=== PATIENT | male | born 1995 | race African-American/Black ===

== ENCOUNTER 2017-02-03 21:36 | Emergency (ER) | payer OTHER ==
--- NOTE | 2017-02-03 22:08 | ER Document Report ---
ED General - General Chief Complaint: Probable Seizure Stated Complaint: POSSIBLE SEIZURE Time Seen by Provider: 02/03/17 21:45 Mode of Arrival: Medic Information source: Parent Notes: 21-year-old male history of BOWLING BALL WEIGHER AND PACKER shunt presents with complaint of seizure-like activity. Patient has a history of seizure disorder is on Keppra , mother notes he is taking the meds appropriately. Had 3 seizures each lasting a few seconds, nother notes this was normal for him, denies any concerning episode. pt otherwise normal all day until he seized TRAVEL OUTSIDE OF THE [place] IN LAST 30 DAYS: No - HPI Onset: Just prior to arrival Onset/Duration: Sudden Quality of pain: No pain Severity: Mild Pain Level: Denies Associated symptoms: Other Exacerbated by: Denies Relieved by: Denies Similar symptoms previously: Yes Recently seen / treated by doctor: Yes - Related Data Allergies/Adverse Reactions: No Known Allergies Allergy (Verified 02/03/17 22:50) Past Medical History - Social History Smoking Status: Never Smoker Cigarette use (# per day): No Chew tobacco use (# tins/day): No Smoking Education Provided: No Family History: Reviewed & Not Pertinent Neurological Medical History: Reports: Hx Seizures Past Surgical History: Reports: Hx Genitourinary Surgery - Abcess behind bladder 2006, Hx Neurologic Surgery - BOWLING BALL WEIGHER AND PACKER shunt, revised in 2006 - Immunizations Immunizations up to date: Yes Hx Diphtheria, Pertussis, Tetanus Vaccination: Yes Review of Systems - Review of Systems Notes: REVIEW OF SYSTEMS: CONSTITUTIONAL : Denies fever, chills, or sweats. Denies recent illness. EENT: Denies eye, ear, throat, or mouth pain or symptoms. Denies nasal or sinus congestion or discharge. Denies throat, tongue, or mouth swelling or difficulty swallowing. CARDIOVASCULAR: Denies chest pain. Denies palpitations or racing or irregular heart beat. Denies ankle edema. RESPIRATORY: Denies cough, cold, or chest congestion. Denies shortness of breath, difficulty breathing, or wheezing. GASTROINTESTINAL: Denies abdominal pain or distention. Denies nausea, vomiting , or diarrhea. Denies blood in vomitus, stools, or per rectum. Denies black, tarry stools. Denies constipation. GENITOURINARY: Denies difficulty urinating, painful urination, burning, frequency, blood in urine, or discharge. MUSCULOSKELETAL: Denies back or neck pain or stiffness. Denies joint pain or swelling. SKIN: Denies rash, lesions or sores. HEMATOLOGIC : Denies easy bruising or bleeding. LYMPHATIC: Denies swollen, enlarged glands. NEUROLOGICAL: admits to seizure per mother PSYCHIATRIC: Denies anxiety or stress. Denies depression, suicidal ideation, or homicidal ideation. ALL OTHER SYSTEMS REVIEWED AND NEGATIVE. Dictation was performed using [employer] voice recognition software PHYSICAL EXAMINATION: GENERAL: Well-appearing, well-nourished and in no acute distress. resting comfirtably HEAD: Atraumatic, normocephalic. EYES: Pupils equal round and reactive to light, extraocular movements intact, sclera anicteric, conjunctiva are normal. ENT: Nares patent, oropharynx clear without exudates. Moist mucous membranes. NECK: Normal range of motion, supple without lymphadenopathy LUNGS: Breath sounds clear to auscultation bilaterally and equal. No wheezes rales or rhonchi. HEART: Regular rate and rhythm without murmurs ABDOMEN: Soft, nontender, nondistended abdomen. No guarding, no rebound. No masses appreciated. Musculoskeletal: Normal range of motion, no pitting or edema. No cyanosis. NEUROLOGICAL: pt is posticatal, mother notes this is normal for him to sleep for up to 24 hours PSYCH: Normal mood, normal affect. SKIN: Warm, Dry, normal turgor, no rashes or lesions noted. Physical Exam - Vital signs Vitals: Temp Pulse Resp BP Pulse Ox 97.8 F 92 14 110/59 L 100 02/03/17 21:50 02/03/17 21:50 02/03/17 21:50 02/03/17 21:50 02/03/17 21:50 Course - Re-evaluation Re-evalutation: 02/03/17 22:57 CT head shunt series noted no significant abnormality. Patient otherwise looks well is in no distress. I will discharge home after a loading dose of Keppra is given Family is very happy with this plan, note this is normal for him and will follow up with primary care physician and neurologist After performing a Medical Screening Examination, I estimate there is LOW risk for ACUTE CORONARY SYNDROME, RESPIRATORY FAILURE, SEPSIS OR MENINGITIS, thus I consider the discharge disposition reasonable. I have reevaluated this patient multiple times and no significant life threatening changes are noted. The patient's mother and I have discussed the diagnosis and risks, and we agree with discharging home with close follow-up. We also discussed returning to the Emergency Department immediately if new or worsening symptoms occur. We have discussed the symptoms which are most concerning (e.g., changing or worsening pain, trouble swallowing or breathing, neck stiffness, fever) that necessitate immediate return. - Vital Signs Vital signs: Temp Pulse Resp BP Pulse Ox 97.8 F 92 20 118/79 100 02/03/17 21:50 02/03/17 21:50 02/03/17 22:26 02/03/17 22:26 02/03/17 22:26 - Diagnostic Test Radiology reviewed: Image reviewed - no Significant abnormality, was given to mother, Reports reviewed Discharge - Discharge Clinical Impression: Seizure Condition: Stable Disposition: HOME, SELF-CARE Instructions: Seizure, Known Epileptic ([facility]) Additional Instructions: Follow up with your physician tomorrow for further care or return to the ED IMMEDIATELY if symptoms worsen or new concerns occur. If you cannot afford to follow up with your primary care physician a list of low cost clinics have been provided at the end of your discharge papers as well.
--- NOTE | 2017-02-03 22:28 | RADIOLOGY REPORT (SQ) ---
EXAM DESCRIPTION: CT HEAD WITHOUT COMPLETED DATE/TIME: 02/03/2017 10:13 pm REASON FOR STUDY: seizure, vp informatics shunt COMPARISON: 01/16/2016 TECHNIQUE: Axial images acquired through the brain without intravenous contrast. Images reviewed wi th bone, brain and subdural windows. Images stored on PACS. All CT scanners at this facility use dose modulation, iterative reconstruction, and/or weight based d osing when appropriate to reduce radiation dose to as low as reasonably achievable (ALARA). [facility]: Dose Right [facility]: CareDose [facility]: Dose Right [facility]: Teradose 4D [facility]: SleepOut RADIATION DOSE: 64.61 mGy. LIMITATIONS: None. FINDINGS: VENTRICLES: Non dilated ventricles. Right-sided RUBY DEVELOPER shunt catheter tip overlies the region of the 3rd ventricle, unchanged. CEREBRUM: No hemorrhage. No midline shift. Stable rausch/white matter differentiation. No evidence f or acute infarction. CEREBELLUM: No hemorrhage. No evidence for acute infarction. EXTRAAXIAL SPACES: No fluid collections. ORBITS AND GLOBE: No intra- or extraconal masses. Normal contour of globe without masses. CALVARIUM: No fracture. PARANASAL SINUSES: No fluid or mucosal thickening. SOFT TISSUES: No mass or hematoma. OTHER: No other significant finding. IMPRESSION: Non dilated ventricles. Right-sided RUBY DEVELOPER shunt catheter tip overlies the region of the 3 rd ventricle, unchanged.No hemorrhage. No midline shift. TECHNICAL DOCUMENTATION: JOB ID: [id number] Quality ID # [id number]: Final reports with documentation of one or more dose reduction techniques (e.g., Au tomated exposure control, adjustment of the mA and/or kV according to patient size, use of iterative reconstruction technique) 2010 [employer]- All Rights Reserved
--- NOTE | 2017-02-03 22:39 | RADIOLOGY REPORT (SQ) ---
EXAM DESCRIPTION: SHUNTOGRAM SERIES COMPLETED DATE/TIME: 02/03/2017 10:13 pm REASON FOR STUDY: seizure COMPARISON: None. TECHNIQUE: 4 frontal images of the head neck chest abdomen and pelvis LIMITATIONS: None. FINDINGS: Right sided intracranial intraventricular shunt tubing is present, the distal tip is visua lized in the upper aspect of the chest, the catheter terminates in the region of the right paraspinal soft tissues at the level of the raymundo. The tubing appears intact. No abdominal catheter identifi ed. Lungs appear clear. Cardiac silhouette is normal. Bowel gas pattern is nonobstructive. Modera te stool burden. IMPRESSION: Right sided intracranial intraventricular shunt tubing is present, the distal tip is vis ualized in the upper aspect of the chest, the catheter terminates in the region of the right paraspin al soft tissues at the level of the raymundo. The tubing appears intact. No abdominal catheter identi fied. Lungs appear clear. Cardiac silhouette is normal. Bowel gas pattern is nonobstructive. Mode rate stool burden. TECHNICAL DOCUMENTATION: JOB ID: [id number] [employer]- All Rights Reserved
[2017-02-03] MEDS ORDERED: LEVETIRACETAM 1500 MG/NACL-ISO 100 ML IV ONE (22:51)
[2017-02-03] MEDS ORDERED: LEVETIRACETAM 500 MG/NACL-ISO 500 MG/100 ML RTUPB IV ONE (23:30)
[2017-02-03] MEDS ORDERED: LEVETIRACETAM 1000 MG/NACL-ISO 1,000 MG/100 ML RTUPB IV ONE (23:30)
[2017-02-04 00:10] VITALS: BP 104/60
== END 2017-02-04 00:20 | disposition home or self-care (01) ==
LOC: ER 21:36
DX: G40.909 Epilepsy, unspecified, not intractable, without status epilepticus (principal); Z98.2 Presence of cerebrospinal fluid drainage device; Z79.899 Other long term (current) drug therapy
CPT/HCPCS: 99284; 96374; 36415; 80177; 75809; 70450; J1953 ×2

== ENCOUNTER 2018-08-04 18:01 | Emergency (ER) | payer BC, OTHER ==
[2018-08-04 18:53] LABS: ABSOLUTE EOSINOPHILS # (AUTO) 0.1 10^3/uL (0.0-0.6); ABSOLUTE MONOCYTES (AUTO) 0.6 10^3/uL (0.1-1.4); BASOPHILS % (AUTO) 0.3 % (0-2); EOSINOPHILS % (AUTO) 0.6 % (0-6); HEMATOCRIT 48.1 % (37.9-51.0); HEMOGLOBIN 16.3 g/dL (13.5-17.0); LYMPHOCYTES % (AUTO) 7.1 % (13-45); MEAN CORPUSCULAR HEMOGLOBIN 30.9 pg (27.0-33.4); MEAN CORPUSCULAR HGB CONC 33.9 g/dL (32.0-36.0); MEAN CORPUSCULAR VOLUME 91 fl (80-97); MONOCYTES % (AUTO) 4.5 % (3-13); PLATELET COUNT 270 10^3/uL (150-450); RED BLOOD COUNT 5.26 10^6/uL (4.35-5.55); RED CELL DISTRIBUTION WIDTH 12.6 % (11.5-14.0); SEGMENTED NEUTROPHILS % (AUTO) 87.5 % (42-78); TOTAL CELLS COUNTED % (AUTO) 100 %; WHITE BLOOD COUNT 13.7 10^3/uL (4.0-10.5)
--- NOTE | 2018-08-04 19:12 | ER Document Report ---
ED Seizure - General Chief Complaint: Seizure Stated Complaint: ALTERED MENTAL STATUS Time Seen by Provider: 08/04/18 18:15 Mode of Arrival: Stretcher Information source: Friend, Emergency Med Personnel Cannot obtain history due to: Altered mental status Notes: Patient is a 22-year-old male with history of seizures who presents via EMS for recurrent seizure that was witnessed by friends whom he lives with. They report they walked into the patient's room and found him down on the floor "shaking," lasted only "a few seconds then stopped" and the patient was confused afterwards. EMS report the patient remained postictal en route without recurrent shaking. It is unknown how frequent his seizures are or if this was consistent with history. Patient is s/p OPERATIONS SUPERVISOR shunt placement. TRAVEL OUTSIDE OF THE [place] IN LAST 30 DAYS: No - HPI Patient complains to provider of: History of seizures Number of episodes: 1 Time of onset: Unknown Duration: Unknown Quality of pain: No pain Severity: None Continued on arrival to ED: No Can details of seizure be obtained/verified: Yes Episode witnessed (by whom): Yes - Friends Current seizure medications: Keppra Preceding symptoms/context: denies: Recent illness/fever, Recent alcohol intake , Missed dose of meds, Changed meds or dosage History of: Hydrocephalus, V/P shunt. denies: Brain tumor or mets Character of seizure: Complete loss/conscious, Generalized shaking Post-ictal symptoms: Confusion Injuries: None Treatment RN INTEGRITY: Other - None Associated Symptoms: None, Loss consciousness - Related Data Allergies/Adverse Reactions: No Known Allergies Allergy (Verified 02/03/17 22:50) Home Medications: Keppra Past Medical History - General Information source: Emergency Med Personnel Cannot obtain history due to: Altered mental status - Social History Smoking Status: Never Smoker Cigarette use (# per day): No Chew tobacco use (# tins/day): No Smoking Education Provided: No Frequency of alcohol use: None Drug Abuse: None Lives with: Friend Family History: Reviewed & Not Pertinent Patient has suicidal ideation: No Patient has homicidal ideation: No - Medical History Notes: Seizures - Past Medical History Cardiac Medical History: Reports: None Pulmonary Medical History: Reports: None EENT Medical History: Reports: None Neurological Medical History: Reports: Hx Seizures Endocrine Medical History: Reports: None Renal/ Medical History: Reports: None Malignancy Medical History: Reports None GI Medical History: Reports: None Musculoskeletal Medical History: Reports None Skin Medical History: Reports None Psychiatric Medical History: Reports: None Traumatic Medical History: Reports: None Infectious Medical History: Reports: None Surgical Hx: Other - OPERATIONS SUPERVISOR shunt placement Past Surgical History: Reports: Hx Genitourinary Surgery - Abcess behind bladder 2006, Hx Neurologic Surgery - OPERATIONS SUPERVISOR shunt, revised in 2006 - Immunizations Immunizations up to date: Yes Hx Diphtheria, Pertussis, Tetanus Vaccination: Yes History of Influenza Vaccine for 06/2017 - 10/2017 Season: Unknown History of Pneumococcal Vaccine: Unknown Review of Systems - Review of Systems -: Yes ROS unobtainable due to patient's medical condition Constitutional: No symptoms reported EENT: No symptoms reported Cardiovascular: No symptoms reported Respiratory: No symptoms reported Gastrointestinal: No symptoms reported Genitourinary: No symptoms reported Male Genitourinary: No symptoms reported Musculoskeletal: No symptoms reported Skin: No symptoms reported Hematologic/Lymphatic: No symptoms reported Neurological/Psychological: Seizure -: Yes All other systems reviewed and negative Physical Exam - Vital signs Vitals: Resp Pulse Ox 26 H 97 08/04/18 18:15 08/04/18 18:15 Interpretation: Normal - Notes Notes: Patient is in mild distress, responds to painful stimuli, is protecting his airway - General General appearance: Lethargic In distress: Mild - HEENT Head: Normocephalic, Atraumatic Eyes: Normal Extraocular movements intact: No - Does not follow commands Pupils: PERRL Ears: Normal Mucous membranes: Normal - Respiratory Respiratory status: No respiratory distress Chest status: Nontender Breath sounds: Normal Chest palpation: Normal - Cardiovascular Rhythm: Tachycardia Heart sounds: Normal auscultation Murmur: No Pulses: Normal: Radial, Carotid, Femoral Normal capillary refill: Yes - Abdominal Inspection: Normal Distension: No distension Bowel sounds: Normal Tenderness: Nontender Organomegaly: No organomegaly - Rectal Tenderness: No - Deferred - Genitourinary Notes: Deferred - Back Back: Normal, Nontender - Extremities General upper extremity: Normal inspection, Nontender, Normal color, Normal ROM , Normal temperature General lower extremity: Normal inspection, Nontender, Normal color, Normal ROM , Normal temperature, Normal weight bearing. No: Leigh's sign Notes: Does not follow commands but moves all extremities equally to pain - Neurological Neuro grossly intact: No - Full neuro exam is unable to be obtained due to postictal state Cognition: Confused Saxis Coma Scale Eye Opening: None Saxis Coma Scale Verbal: Incomprehensible Kelli Coma Scale Motor: Localizes to Pain Saxis Coma Scale Total: 8 Speech: Other - Moans Motor strength normal: LUE, RUE, LLE, RLE Babinski reflex: Normal (flexor plantar) Sensory: Normal - Psychological Associated symptoms: Normal mood - Skin Skin Temperature: Warm Skin Moisture: Dry Skin Color: Normal Course - Re-evaluation Re-evalutation: 08/04/18 20:58 CT head and shunt series are negative for acute pathology. Blood work shows mildly elevated white cell count, likely secondary to seizure. Urinalysis and chemistries still pending. Patient has improved, currently is alert and oriented. 08/04/18 22:36 Urine and blood work continue to be normal, other than positive for marijuana. We will continue to observe the patient until he is at his baseline. 08/04/18 23:49 Patient is now at his baseline. He will be discharged. He has agreed to follow -up with his outpatient neurologist. - Vital Signs Vital signs: Temp Pulse Resp BP Pulse Ox 18 132/88 H 100 08/04/18 23:00 08/04/18 23:31 08/04/18 23:00 - Laboratory Result Diagrams: 08/04/18 18:10 08/04/18 21:27 Laboratory results interpreted by me: 08/04/18 08/04/18 08/04/18 18:10 19:55 20:43 WBC 13.7 H Seg Neutrophils % 87.5 H Lymphocytes % 7.1 L Absolute Neutrophils 12.0 H Creatinine Lactic Acid 3.4 H Calcium Creatine Kinase Total Protein Urine Protein 100 H Urine Blood MODERATE H 08/04/18 21:27 WBC Seg Neutrophils % Lymphocytes % Absolute Neutrophils Creatinine 1.42 H Lactic Acid Calcium 10.4 H Creatine Kinase 788 H Total Protein 8.5 H Urine Protein Urine Blood - Diagnostic Test Radiology reviewed: Reports reviewed - EKG Interpretation by Me EKG shows normal: Sinus rhythm Rate: Normal Rhythm: NSR [place]/QRS: No: RBBB, LBBB Heart block present: No: 1st Degree, Mobitz 1, Mobitz 2, CHB (3rd degree block) When compared to previous EKG there are: No significant change Discharge - Discharge Clinical Impression: Seizure Condition: Good Disposition: HOME, SELF-CARE Instructions: Seizure, Known Epileptic ([facility]) Additional Instructions: Follow-up with your primary doctor and your neurologist as scheduled. Referrals: AMANDA KLEIN MD [Primary Care Provider] - Follow up as needed Print Language: Yoruba
--- NOTE | 2018-08-04 19:55 | RADIOLOGY REPORT (SQ) ---
EXAM DESCRIPTION: SHUNTOGRAM SERIES COMPLETED DATE/TIME: 08/04/2018 7:41 pm REASON FOR STUDY: Seizure COMPARISON: None. TECHNIQUE: An anterior view of the head and neck and anterior view of the chest are presented. LIMITATIONS: None. FINDINGS: A ventriculoperitoneal shunt is present on the right side extending down the neck. The ti p of the shunt is at about the level of the raymundo in the chest. IMPRESSION: Shunt as described. TECHNICAL DOCUMENTATION: JOB ID: [id number] [employer]- All Rights Reserved Reading location - IP/workstation name: [email or web address]
--- NOTE | 2018-08-04 20:09 | RADIOLOGY REPORT (SQ) ---
EXAM DESCRIPTION: CT HEAD WITHOUT COMPLETED DATE/TIME: 08/04/2018 7:56 pm REASON FOR STUDY: Seizure COMPARISON: 02/03/2017 TECHNIQUE: Axial images acquired through the brain without intravenous contrast. Images reviewed wi th bone, brain and subdural windows. Additional sagittal and coronal reconstructions were generated. Images stored on PACS. All CT scanners at this facility use dose modulation, iterative reconstruction, and/or weight based d osing when appropriate to reduce radiation dose to as low as reasonably achievable (ALARA). [facility]: Dose Right [facility]: CareDose [facility]: Dose Right [facility]: Teradose 4D [facility]: [employer] RADIATION DOSE: CT Rad equipment meets quality standard of care and radiation dose reduction techniq ues were employed. CTDIvol: 53.2 mGy. DLP: 991 mGy-cm. mGy. LIMITATIONS: None. FINDINGS: VENTRICLES: The ventricles are nondilated. A ventriculoperitoneal shunt is present and is unchanged. CEREBRUM: No masses. No hemorrhage. No midline shift. No evidence for acute infarction. Normal gra y/white matter differentiation. No areas of low density in the white matter. CEREBELLUM: No masses. No hemorrhage. No alteration of density. No evidence for acute infarction. EXTRAAXIAL SPACES: No fluid collections. No masses. ORBITS AND GLOBE: No intra- or extraconal masses. Normal contour of globe without masses. CALVARIUM: Right craniotomy. PARANASAL SINUSES: No fluid or mucosal thickening. SOFT TISSUES: No mass or hematoma. OTHER: No other significant finding. IMPRESSION: Ventriculoperitoneal shunt remains in position. No significant interval change in the a ppearance of the brain. EVIDENCE OF ACUTE STROKE: NO. COMMENT: Quality ID # [id number]: Final reports with documentation of one or more dose reduction techniques (e.g., Automated exposure control, adjustment of the mA and/or kV according to patient size, use of iterative reconstruction technique) TECHNICAL DOCUMENTATION: JOB ID: [id number] [employer]- All Rights Reserved Reading location - IP/workstation name: [email or web address]
[2018-08-04 21:00] LABS: APPEARANCE,URINE SLIGHTLY-CLOUDY; BILIRUBIN,URINE NEGATIVE (NEGATIVE); COLOR,URINE YELLOW; GLUCOSE, URINE NEGATIVE (NEGATIVE); KETONES,URINE NEGATIVE (NEGATIVE); LEUKOCYTE ESTERASE,URINE NEGATIVE (NEGATIVE); NITRITE,URINE NEGATIVE (NEGATIVE); PROTEIN,URINE 100 mg/dL (NEGATIVE); URINE SPECIFIC GRAVITY 1.011; UROBILINOGEN,URINE NEGATIVE mg/dL (<2.0)
[2018-08-04 21:08] LABS: URINE AMPHETAMINES SCREEN NEGATIVE; URINE BARBITURATES SCREEN NEGATIVE; URINE BENZODIAZEPINES SCREEN UNCONFIRMED POSITIVE; URINE COCAINE SCREEN NEGATIVE; URINE MARIJUANA (THC) SCREEN UNCONFIRMED POSITIVE; URINE METHADONE SCREEN NEGATIVE; URINE PHENCYCLIDINE SCREEN NEGATIVE
[2018-08-04 21:57] LABS: ALANINE AMINOTRANSFERASE 28 U/L (21-72); ALBUMIN 4.9 g/dL (3.5-5.0); ALKALINE PHOSPHATASE 66 U/L (38-126); ANION GAP 16 (5-19); ASPARTATE AMINO TRANSFERASE 52 U/L (17-59); BILIRUBIN,DIRECT 0.3 mg/dL (0.0-0.4); BILIRUBIN,TOTAL 0.7 mg/dL (0.2-1.3); BLOOD UREA NITROGEN 14 mg/dL (7-20); CALCIUM 10.4 mg/dL (8.4-10.2); CARBON DIOXIDE 27 mmol/L (22-30); CHLORIDE 100 mmol/L (98-107); CREATINE KINASE 788 U/L (55-170); GLUCOSE 91 mg/dL (75-110); POTASSIUM 4.2 mmol/L (3.6-5.0); SODIUM 142.9 mmol/L (137-145); TOTAL PROTEIN 8.5 g/dL (6.3-8.2)
[2018-08-04 22:02] LABS: ALCOHOL < 10 mg/dL (NONE DETECTED)
[2018-08-05 00:11] VITALS: BP 128/88
--- NOTE | 2018-08-05 11:20 | EKG REPORT ---
SEVERITY:- ABNORMAL ECG - SINUS TACHYCARDIA ST ELEVATION SUGGESTS PERICARDITIS : Confirmed by: Doni Sampson 05-Aug-2018 11:19:32
== END 2018-08-05 00:32 | disposition home or self-care (01) ==
LOC: ER 18:01
DX: R56.9 Unspecified convulsions (principal); R41.82 Altered mental status, unspecified; R55 Syncope and collapse; R53.83 Other fatigue; R25.1 Tremor, unspecified; Z79.899 Other long term (current) drug therapy; R00.0 Tachycardia, unspecified
CPT/HCPCS: 36415; 70450; 75809; 80053; 80307; 81001; 82550; 83605; 85025; 93005; 93010; 99285

== ENCOUNTER 2018-12-12 21:57 | Emergency (ER) | payer BC, OTHER ==
--- NOTE | 2018-12-12 23:54 | ER Document Report ---
ED General - General Chief Complaint: Probable Seizure Stated Complaint: POSSIBLE SEIZURE Time Seen by Provider: 12/12/18 23:44 Primary Care Provider: AMANDA KLEIN MD [COMMUNITY BASED STAFF] - Follow up as needed Notes: Patient is a 23-year-old male with a past medical history of epilepsy who presents after having a generalized tonic-clonic seizure. Patient is uncertain of how long this lasted. States that he did miss a dose of Keppra today and believes this has triggered his seizure. Has had seizures in the past with missed doses. States that nothing was otherwise new or different regarding a seizure today and that he feels well at this time. Apparently the episode was abrupt in onset, uncertain of duration, resolved spontaneously without intervention. Does arrive by EMS. Has not contacted his neurologist regarding today's event. Denies any focal weakness or numbness. No headache. TRAVEL OUTSIDE OF THE [place] IN LAST 30 DAYS: No - HPI Onset: Just prior to arrival Onset/Duration: Sudden Quality of pain: No pain Severity: Moderate Pain Level: Denies Associated symptoms: None Exacerbated by: Denies Relieved by: Denies Similar symptoms previously: Yes Recently seen / treated by doctor: No - Related Data Allergies/Adverse Reactions: No Known Allergies Allergy (Verified 02/03/17 22:50) Past Medical History - General Information source: Patient - Social History Smoking Status: Current Every Day Smoker Chew tobacco use (# tins/day): No Frequency of alcohol use: Occasional Drug Abuse: None Lives with: Family Family History: Reviewed & Not Pertinent Patient has suicidal ideation: No Patient has homicidal ideation: No Neurological Medical History: Reports: Hx Seizures - controlled with Kepra Renal/ Medical History: Denies: Hx Peritoneal Dialysis Past Surgical History: Reports: Hx Genitourinary Surgery - Abcess behind bladder 2006, Hx Neurologic Surgery - 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 HENT: Negative for sore throat. Eyes: Negative for visual changes. Cardiovascular: Negative for chest pain. Respiratory: Negative for shortness of breath. Gastrointestinal: Negative for abdominal pain, vomiting or diarrhea. Genitourinary: Negative for dysuria. Musculoskeletal: Negative for back pain. Skin: Negative for rash. Neurological: Negative for headaches, positive for seizures 10 point ROS negative except as marked above and in HPI. Physical Exam - Vital signs Vitals: Resp Pulse Ox 17 98 12/12/18 22:00 12/12/18 22:00 Interpretation: Normal Notes: PHYSICAL EXAMINATION: GENERAL: Well-appearing, well-nourished and in no acute distress. HEAD: Atraumatic, normocephalic. EYES: Pupils equal round and reactive to light, extraocular movements intact, sclera anicteric, conjunctiva are normal. ENT: nares patent, oropharynx clear without exudates. Moist mucous membranes. NECK: Normal range of motion, supple without lymphadenopathy LUNGS: Breath sounds clear to auscultation bilaterally and equal. No wheezes rales or rhonchi. HEART: Regular rate and rhythm without murmurs ABDOMEN: Soft, nontender, normoactive bowel sounds. No guarding, no rebound. No masses appreciated. EXTREMITIES: Normal range of motion, no pitting or edema. No cyanosis. NEUROLOGICAL: Face symmetric. Tongue protrudes midline. Extraocular motions intact. Pupils are 2 mm and equally reactive. Normal speech, normal gait. 5 out of 5 strength in both the distal and proximal upper and lower extremities bilaterally. Sensation is grossly intact throughout. Finger to nose testing normal. Pronator drift normal. PSYCH: Normal mood, normal affect. SKIN: Warm, Dry, normal turgor, no rashes or lesions noted. Course - Re-evaluation Re-evalutation: 12/12/18 23:52 Presentation of well-appearing patient after having a seizure. Patient has a known history of seizures. Patient admits to missing several doses of his Keppra likely the trigger for his seizure today.. I have advised adherence to his medication regiment. The patient has returned to baseline without intervention. No focal neurologic deficits. No infectious symptoms, vital sign abnormalities, or evidence of trauma. No indication for laboratories or imaging based on reassuring evaluation and known history of seizures. The patient will be discharged home with recommendations for close follow-up with primary care as well as their neurologist. Return precautions have been reviewed and patient has verbalized understanding. - Vital Signs Vital signs: Temp Pulse Resp BP Pulse Ox 97.6 F 86 17 126/86 H 99 12/13/18 00:49 12/13/18 00:49 12/13/18 00:49 12/13/18 00:49 12/13/18 00:49 Discharge - Discharge Clinical Impression: Seizure Condition: Good Disposition: HOME, SELF-CARE Additional Instructions: Today you had a seizure. It is very important that you do not engage in any activities that could result in severe injury should you have a seizure. Specifically, do not drive a vehicle, go into a body of water, take a bath, climb ladders, or operate any heavy machinery until you have been cleared by your neurologist. Please return to the ED immediately if you have multiple seizures close together, develop a severe headache, weakness, numbness, difficulty speaking, have a seizure in which you do not return to normal within 1 hour of the seizure, or have any other symptoms that are concerning to you. Referrals: AMANDA KLEIN MD [COMMUNITY BASED STAFF] - Follow up as needed
[2018-12-13 00:50] VITALS: BP 126/86
== END 2018-12-13 00:50 | disposition home or self-care (01) ==
LOC: ER 21:57
DX: G40.909 Epilepsy, unspecified, not intractable, without status epilepticus (principal); F17.200 Nicotine dependence, unspecified, uncomplicated; Z98.2 Presence of cerebrospinal fluid drainage device
CPT/HCPCS: 99284

== ENCOUNTER 2019-05-23 21:00 | Emergency (ER) | payer OTHER ==
[2019-05-23 21:32] LABS: HEMATOCRIT 42.4 % (37.9-51.0); HEMOGLOBIN 14.1 g/dL (13.5-17.0); MEAN CORPUSCULAR HGB CONC 33.3 g/dL (32.0-36.0); MEAN CORPUSCULAR VOLUME 93 fl (80-97); PLATELET COUNT 321 10^3/uL (150-450); RED BLOOD COUNT 4.55 10^6/uL (4.35-5.55); RED CELL DISTRIBUTION WIDTH 12.7 % (11.5-14.0); WHITE BLOOD COUNT 8.1 10^3/uL (4.0-10.5)
[2019-05-23 21:49] LABS: ALBUMIN 2.8 g/dL (3.5-5.0); ALKALINE PHOSPHATASE 44 U/L (38-126); ANION GAP 18 (5-19); ASPARTATE AMINO TRANSFERASE 47 U/L (17-59); BILIRUBIN,DIRECT 0.1 mg/dL (0.0-0.4); BILIRUBIN,TOTAL 0.3 mg/dL (0.2-1.3); BLOOD UREA NITROGEN 10 mg/dL (7-20); CARBON DIOXIDE 12 mmol/L (22-30); CHLORIDE 113 mmol/L (98-107); GLUCOSE 197 mg/dL (75-110); POTASSIUM 3.4 mmol/L (3.6-5.0); TOTAL PROTEIN 5.4 g/dL (6.3-8.2)
[2019-05-23 21:55] LABS: ALCOHOL < 10 mg/dL (NONE DETECTED); CALCIUM 7.1 mg/dL (8.4-10.2)
[2019-05-23 22:01] LABS: ABSOLUTE EOSINOPHILS # (AUTO) 0.4 10^3/uL (0.0-0.6); ABSOLUTE LYMPHOCYTES (AUTO) 1.3 10^3/uL (0.5-4.7); ABSOLUTE MONOCYTES (AUTO) 0.3 10^3/uL (0.1-1.4); ABSOLUTE NEUT (AUTO) 6.2 10^3/uL (1.7-8.2); BASOPHILS % (AUTO) 0.5 % (0-2); EOSINOPHILS % (AUTO) 4.3 % (0-6); LYMPHOCYTES % (AUTO) 15.7 % (13-45); MONOCYTES % (AUTO) 3.1 % (3-13); SEGMENTED NEUTROPHILS % (AUTO) 76.4 % (42-78); TOTAL CELLS COUNTED % (AUTO) 100 %
--- NOTE | 2019-05-23 22:17 | EKG REPORT ---
SEVERITY:- NORMAL ECG - SINUS RHYTHM : Confirmed by: Marco A Welsh MD 23-May-2019 22:17:27
--- NOTE | 2019-05-23 23:46 | RADIOLOGY REPORT (SQ) ---
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 Coronal and sagittal reformations were created. Images stored on PACS. All CT scanners at this facility use dose modulation, iterative reconstruction, and/or weight based dosing when appropriate to reduce radiation dose to as low as reasonably achievable (ALARA). [facility]: Dose Right [facility]: CareDose [facility]: Dose Right [facility]: Teradose 4D [facility]: PT [place] Inti [place] LIMITATIONS: None. FINDINGS: Right frontal approach intraventricular shunt catheter is in position with its tip located in the region of the foramen of [place]ro. Mild gliosis is noted surrounding the shunt catheter tract, similar to the previous examination dated 02/03/2017. Irregular calcifications located about the right posterior parietal-occipital region appear similar in configuration to the previous examination dated 02/03/2017 as well, likely indicating sequela of remote insult. No acute intracranial hemorrhage, mass effect, or extra-axial fluid is seen. The ventricles and sulcal spaces are stable in size and configuration, with slitlike lateral ventricles. Globes and orbits show no acute abnormality. Paranasal sinuses and mastoid air cells are overall clear. No depressed skull fractures. IMPRESSION: Overall stable appearance of the brain, as above described. Right frontal approach intraventricular shunt catheter appears unchanged in position, with slitlike lateral ventricles. TECHNICAL DOCUMENTATION: Quality ID # 436: Final reports with documentation of one or more dose reduction techniques (e.g., Automated exposure control, adjustment of the mA and/or kV according to patient size, use of iterative reconstruction technique) copyright 2011 [employer]- All Rights Reserved
--- NOTE | 2019-05-24 00:54 | RADIOLOGY REPORT (SQ) ---
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 Portions of the proximal shunt are of secured by bone in the right head. Tip of the shunt overlies the superior vena cava. Mild pulmonary vascular congestion. Subsegmental atelectasis right lung base. Nonspecific nonobstructive bowel gas pattern IMPRESSION: Tip of the ventriculostomy shunt in the SVC. Mild pulmonary vascular congestion
--- NOTE | 2019-05-24 00:57 | ER Document Report ---
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 Patient was treated via EMS with 1 mg of IV Ativan. Upon my assessment he is arousable to painful stimuli but then falls back asleep. Patient's mother is at bedside who provides HPI. Mother states patient has not been taking his Keppra over the last week. States "since he turned 23 he wants to be more independent." Mother states she has not seen him in the last week. States today she was alerted to a store because the patient had a seizure. EMS was alerted at that time patient refused transport. Mother states patient was back at baseline and walked home. Mother states when the patient got home he attempted to eat a sandwich. States at that time the patient started seizing. Mother describes the seizure as tonic-clonic in nature. States she feels as though it lasted anywhere from 15 to 30 minutes. States patient was still seizing upon EMS arrival. Patient's SPIKE MACHINE FEEDER shunt was last revised in 2006. Patient's neurologist is Dr. Whipple. - Related Data Allergies/Adverse Reactions: No Known Allergies Allergy (Verified 02/03/17 22:50) Past Medical History - General Information source: Patient, Parent - Social History Smoking Status: Unknown if Ever Smoked Family History: Reviewed & Not Pertinent Patient has suicidal ideation: No Patient has homicidal ideation: No Neurological Medical History: Reports: Hx Seizures Renal/ Medical History: Denies: Hx Peritoneal Dialysis Past Surgical History: Reports: Hx Genitourinary Surgery - Abcess behind bladder 2006, Hx Neurologic Surgery - SPIKE MACHINE FEEDER shunt, revised in 2006 - Immunizations Immunizations up to date: Yes Hx Diphtheria, Pertussis, Tetanus Vaccination: Yes Review of Systems - Review of Systems Constitutional: denies: Fever EENT: No symptoms reported Cardiovascular: No symptoms reported Respiratory: No symptoms reported Gastrointestinal: No symptoms reported Genitourinary: No symptoms reported Male Genitourinary: No symptoms reported Musculoskeletal: No symptoms reported Skin: No symptoms reported Hematologic/Lymphatic: No symptoms reported Neurological/Psychological: See HPI Physical Exam - Vital signs Vitals: Temp Pulse Ox 98.1 F 88 L 05/23/19 21:01 05/23/19 21:01 - Notes Notes: GENERAL: Alert, interacts well. No acute distress. HEAD: Normocephalic, atraumatic. EYES: Pupils equal, round, and reactive to light. Extraocular movements intact. ENT: Oral mucosa moist, tongue midline. NECK: Full range of motion. Supple. Trachea midline. LUNGS: Clear to auscultation bilaterally, no wheezes, rales, or rhonchi. No respiratory distress. HEART: Regular rate and rhythm. No murmur ABDOMEN: Soft, non-tender. Non-distended. Bowel sounds present in all 4 quadrants. EXTREMITIES: Moves all 4 extremities spontaneously. No edema, normal radial and dorsalis pedis pulses bilaterally. No cyanosis. BACK: no cervical, thoracic, lumbar midline tenderness. No saddle anesthesia, normal distal neurovascular exam. NEUROLOGICAL: Alert and oriented x3. Normal speech. cranial nerves II through XII grossly intact PSYCH: Normal affect, normal mood. SKIN: Warm, dry, normal turgor. No rashes or lesions noted. Course - Re-evaluation Re-evalutation: 05/24/19 02:42 Laboratory 05/23/19 05/23/19 05/24/19 21:15 21:15 01:07 WBC 8.1 RBC 4.55 Hgb 14.1 Hct 42.4 MCV 93 MCH 31.0 MCHC 33.3 RDW 12.7 Plt Count 321 Lymph % (Auto) 15.7 Titus % (Auto) 3.1 Eos % (Auto) 4.3 Baso % (Auto) 0.5 Absolute Neuts (auto) 6.2 Absolute Lymphs (auto) 1.3 Absolute Monos (auto) 0.3 Absolute Eos (auto) 0.4 Absolute Basos (auto) 0.0 Total Counted Cancelled Seg Neutrophils % 76.4 Seg Neuts % (Manual) Cancelled Band Neutrophils % Cancelled Lymphocytes % (Manual) Cancelled Atypical Lymphs % Cancelled Monocytes % (Manual) Cancelled Eosinophils % (Manual) Cancelled Basophils % (Manual) Cancelled Metamyelocytes % Cancelled Myelocytes % Cancelled Promyelocytes % Cancelled Immature Leukocytes % Cancelled Abs Neuts (Manual) Cancelled Abs Lymphs (Manual) Cancelled Abs Monocytes (Manual) Cancelled Absolute Eos (Manual) Cancelled Abs Basophils (Manual) Cancelled Nucleated RBCs Cancelled Differential Comment Cancelled Hypersegmented Neuts Cancelled Smudge Cells Cancelled Toxic Granulation Cancelled Toxic Vacuolation Cancelled Dohle Bodies Cancelled Sergey Rods Cancelled WBC Morphology Comment Cancelled Clumped Platelets Cancelled Large Platelets Cancelled Giant Platelets Cancelled Platelet Comment Cancelled Polychromasia Cancelled Hypochromasia Cancelled Poikilocytosis Cancelled Basophilic Stippling Cancelled Anisocytosis Cancelled Microcytosis Cancelled Macrocytosis Cancelled Spherocytes Cancelled Pappenheimer Bodies Cancelled Sickle Cells Cancelled Target Cells Cancelled Tear Drop Cells Cancelled Ovalocytes Cancelled Stomatocytes Cancelled Helmet Cells Cancelled Spence-Cave Bodies Cancelled [place]iana Cells Cancelled Acanthocytes (Spur) Cancelled Rouleaux Cancelled Schistocytes Cancelled RBC Morph Comment Cancelled Sodium 142.5 Potassium 3.4 L Chloride 113 H Carbon Dioxide 12 L Anion Gap 18 BUN 10 Creatinine 1.11 Est GFR ( Amer) > 60 Est GFR (MDRD) Non-Af > 60 Glucose 197 H Calcium 7.1 L Magnesium 2.0 Total Bilirubin 0.3 Direct Bilirubin 0.1 Neonat Total Bilirubin Not Reportable Neonat Direct Bilirubin Not Reportable Neonat Indirect Bili Not Reportable AST 47 ALT 21 Alkaline Phosphatase 44 Total Protein 5.4 L Albumin 2.8 L Urine Color YELLOW Urine Appearance SLIGHTLY-CLOUDY Urine pH 6.0 Ur Specific [place] 1.016 Urine Protein 100 H Urine Glucose (UA) NEGATIVE Urine Ketones NEGATIVE Urine Blood SMALL H Urine Nitrite NEGATIVE Urine Bilirubin NEGATIVE Urine Urobilinogen NEGATIVE Ur Leukocyte Esterase NEGATIVE Urine WBC (Auto) 3 Urine RBC (Auto) 2 U Hyaline Cast (Auto) 5 Squamous Epi Cells Auto <1 Urine Mucus (Auto) RARE Urine Ascorbic Acid NEGATIVE Urine Opiates Screen Urine Methadone Screen Ur Barbiturates Screen Ur Phencyclidine Scrn Ur Amphetamines Screen U Benzodiazepines Scrn Urine Cocaine Screen U Marijuana (THC) Screen Serum Alcohol < 10 05/24/19 01:07 WBC RBC Hgb Hct MCV MCH MCHC RDW Plt Count Lymph % (Auto) Titus % (Auto) Eos % (Auto) Baso % (Auto) Absolute Neuts (auto) Absolute Lymphs (auto) Absolute Monos (auto) Absolute Eos (auto) Absolute Basos (auto) Total Counted Seg Neutrophils % Seg Neuts % (Manual) Band Neutrophils % Lymphocytes % (Manual) Atypical Lymphs % Monocytes % (Manual) Eosinophils % (Manual) Basophils % (Manual) Metamyelocytes % Myelocytes % Promyelocytes % Immature Leukocytes % Abs Neuts (Manual) Abs Lymphs (Manual) Abs Monocytes (Manual) Absolute Eos (Manual) Abs Basophils (Manual) Nucleated RBCs Differential Comment Hypersegmented Neuts Smudge Cells Toxic Granulation Toxic Vacuolation Dohle Bodies Sergey Rods WBC Morphology Comment Clumped Platelets Large Platelets Giant Platelets Platelet Comment Polychromasia Hypochromasia Poikilocytosis Basophilic Stippling Anisocytosis Microcytosis Macrocytosis Spherocytes Pappenheimer Bodies Sickle Cells Target Cells Tear Drop Cells Ovalocytes Stomatocytes Helmet Cells Spence-Cave Bodies Mariana Cells Acanthocytes (Spur) Rouleaux Schistocytes RBC Morph Comment Sodium Potassium Chloride Carbon Dioxide Anion Gap BUN Creatinine Est GFR ( Amer) Est GFR (MDRD) Non-Af Glucose Calcium Magnesium Total Bilirubin Direct Bilirubin Neonat Total Bilirubin Neonat Direct Bilirubin Neonat Indirect Bili AST ALT Alkaline Phosphatase Total Protein Albumin Urine Color Urine Appearance Urine pH Ur Specific [place] Urine Protein Urine Glucose (UA) Urine Ketones Urine Blood Urine Nitrite Urine Bilirubin Urine Urobilinogen Ur Leukocyte Esterase Urine WBC (Auto) Urine RBC (Auto) U Hyaline Cast (Auto) Squamous Epi Cells Auto Urine Mucus (Auto) Urine Ascorbic Acid Urine Opiates Screen NEGATIVE Urine Methadone Screen NEGATIVE Ur Barbiturates Screen NEGATIVE Ur Phencyclidine Scrn NEGATIVE Ur Amphetamines Screen NEGATIVE U Benzodiazepines Scrn NEGATIVE Urine Cocaine Screen NEGATIVE U Marijuana (THC) Screen UNCONFIRMED POSITIVE Serum Alcohol Head CT 05/23/19 22:36 IMPRESSION: Overall stable appearance of the brain, as above described. Right frontal approach intraventricular shunt catheter appears unchanged in position, with slitlike lateral ventricles. TECHNICAL DOCUMENTATION: Quality ID # 436: Final reports with documentation of one or more dose reduction techniques (e.g., Automated exposure control, adjustment of the mA and/or kV according to patient size, use of iterative reconstruction technique) copyright 2011 [employer]- All Rights Reserved Shuntogram 05/23/19 22:36 IMPRESSION: Tip of the ventriculostomy shunt in the SVC. Mild pulmonary vascular congestion Mother voices that patient typically sleeps after seizures. Patient was also treated with Ativan by EMS. Initial assessment reveals the patient alert to painful stimuli. Throughout time in the emergency department patient has now woken up. He is conscious alert and oriented x4. He has gotten up and used the restroom, provided a urine sample. Discussed with patient importance of taking his medications as prescribed. Patient voices understanding. Stable for discharge. - Vital Signs Vital signs: Temp Pulse Resp BP Pulse Ox 98.3 F 20 127/83 H 97 05/24/19 01:10 05/24/19 01:17 05/24/19 01:17 05/24/19 01:17 - Laboratory Result Diagrams: 05/23/19 21:15 05/23/19 21:15 Laboratory results interpreted by me: 05/23/19 05/24/19 21:15 01:07 Potassium 3.4 L Chloride 113 H Carbon Dioxide 12 L Glucose 197 H Calcium 7.1 L Total Protein 5.4 L Albumin 2.8 L Urine Protein 100 H Urine Blood SMALL H Discharge - Discharge Clinical Impression: Seizure Condition: Stable Disposition: HOME, SELF-CARE Instructions: Seizure, Known Epileptic ([facility]) Additional Instructions: As we discussed you have been seen and treated in the emergency department for a seizure. It is very important that you take your Keppra as prescribed. It is also important that you follow-up with your neurologist. Please follow-up with your neurologist or primary care provider in the next 24 to 48 hours. Return to the emergency room for any further concerns. Referrals: CHRISTY THAPA MD [Primary Care Provider] - Follow up as needed
[2019-05-24 01:40] LABS: APPEARANCE,URINE SLIGHTLY-CLOUDY; BILIRUBIN,URINE NEGATIVE (NEGATIVE); COLOR,URINE YELLOW; GLUCOSE, URINE NEGATIVE (NEGATIVE); KETONES,URINE NEGATIVE (NEGATIVE); LEUKOCYTE ESTERASE,URINE NEGATIVE (NEGATIVE); NITRITE,URINE NEGATIVE (NEGATIVE); PROTEIN,URINE 100 mg/dL (NEGATIVE); URINE SPECIFIC GRAVITY 1.016; UROBILINOGEN,URINE NEGATIVE mg/dL (<2.0)
[2019-05-24 02:01] LABS: URINE AMPHETAMINES SCREEN NEGATIVE; URINE BARBITURATES SCREEN NEGATIVE; URINE BENZODIAZEPINES SCREEN NEGATIVE; URINE COCAINE SCREEN NEGATIVE; URINE MARIJUANA (THC) SCREEN UNCONFIRMED POSITIVE; URINE METHADONE SCREEN NEGATIVE; URINE PHENCYCLIDINE SCREEN NEGATIVE
[2019-05-24] MEDS ORDERED: LEVETIRACETAM 500 MG TABLET PO ONE (02:32)
[2019-05-24] MEDS ORDERED: POTASSIUM CHLORIDE 10 MEQ CAPSULE.ER PO ONE (02:32)
[2019-05-24 02:59] VITALS: BP 113/83
== END 2019-05-24 02:58 | disposition home or self-care (01) ==
LOC: ER 21:00
DX: R56.9 Unspecified convulsions (principal); T42.6X6A Underdosing of other antiepileptic and sedative-hypnotic drugs, initial encounter; Z91.14 Patient's other noncompliance with medication regimen; R09.89 Other specified symptoms and signs involving the circulatory and respiratory systems; Z98.2 Presence of cerebrospinal fluid drainage device
CPT/HCPCS: 36415; 70450; 75809; 80053; 80307; 81001; 83735; 85025; 93005; 93010

== ENCOUNTER 2019-08-18 18:00 | Emergency (ER) | payer OTHER ==
[2019-08-18 20:37] LABS: ABSOLUTE EOSINOPHILS # (AUTO) 0.1 10^3/uL (0.0-0.6); ABSOLUTE LYMPHOCYTES (AUTO) 2.2 10^3/uL (0.5-4.7); ABSOLUTE MONOCYTES (AUTO) 0.3 10^3/uL (0.1-1.4); ABSOLUTE NEUT (AUTO) 1.8 10^3/uL (1.7-8.2); BASOPHILS % (AUTO) 0.6 % (0-2); EOSINOPHILS % (AUTO) 2.5 % (0-6); HEMATOCRIT 46.1 % (37.9-51.0); HEMOGLOBIN 15.8 g/dL (13.5-17.0); LYMPHOCYTES % (AUTO) 49.7 % (13-45); MEAN CORPUSCULAR HEMOGLOBIN 31.4 pg (27.0-33.4); MEAN CORPUSCULAR HGB CONC 34.2 g/dL (32.0-36.0); MEAN CORPUSCULAR VOLUME 92 fl (80-97); MONOCYTES % (AUTO) 6.5 % (3-13); PLATELET COUNT 267 10^3/uL (150-450); RED BLOOD COUNT 5.01 10^6/uL (4.35-5.55); RED CELL DISTRIBUTION WIDTH 12.5 % (11.5-14.0); SEGMENTED NEUTROPHILS % (AUTO) 40.7 % (42-78); TOTAL CELLS COUNTED % (AUTO) 100 %; WHITE BLOOD COUNT 4.4 10^3/uL (4.0-10.5)
[2019-08-18 20:48] LABS: APPEARANCE,URINE CLEAR; BILIRUBIN,URINE NEGATIVE (NEGATIVE); COLOR,URINE STRAW; GLUCOSE, URINE NEGATIVE (NEGATIVE); KETONES,URINE NEGATIVE (NEGATIVE); LEUKOCYTE ESTERASE,URINE NEGATIVE (NEGATIVE); NITRITE,URINE NEGATIVE (NEGATIVE); PROTEIN,URINE NEGATIVE (NEGATIVE); URINE SPECIFIC GRAVITY 1.015; UROBILINOGEN,URINE NEGATIVE mg/dL (<2.0)
[2019-08-18 20:49] LABS: ALBUMIN 4.6 g/dL (3.5-5.0); ALKALINE PHOSPHATASE 52 U/L (38-126); ANION GAP 16 (5-19); ASPARTATE AMINO TRANSFERASE 34 U/L (17-59); BILIRUBIN,DIRECT 0.2 mg/dL (0.0-0.4); BILIRUBIN,TOTAL 0.7 mg/dL (0.2-1.3); BLOOD UREA NITROGEN 10 mg/dL (7-20); CALCIUM 10.4 mg/dL (8.4-10.2); CARBON DIOXIDE 22 mmol/L (22-30); CHLORIDE 102 mmol/L (98-107); GLUCOSE 87 mg/dL (75-110); POTASSIUM 4.2 mmol/L (3.6-5.0); TOTAL PROTEIN 8.4 g/dL (6.3-8.2)
[2019-08-18 20:54] LABS: ACETAMINOPHEN < 10 ug/mL (10-30); ALCOHOL < 10 mg/dL (NONE DETECTED); SALICYLATE < 1.0 mg/dL (2.0-20.0)
--- NOTE | 2019-08-18 20:58 | ER Document Report ---
ED General - General Chief Complaint: Possible Overdose Stated Complaint: POSSIBLE OVERDOSE Time Seen by Provider: 08/18/19 20:19 TRAVEL OUTSIDE OF THE [place] IN LAST 30 DAYS: No - HPI Notes: Patient is a 23-year-old male with a history of seizures who presents after having taken he took approximately 80 tablets of Keppra 500 mg ER at 9 AM today. Patient states that he has been having suicidal ideations for the past couple months, mother states otherwise issues for last 1 to 2 years, and has been plan trey on overdosing. Patient was brought in by his father. Patient states that this was an act of trying to take his own life. He has no homicidal ideation. No visual or auditory hallucinations. Patient states he has been having a lot of stress with the family at home. He denies drug use, but mother states that he does smoke marijuana. Denies drug allergies. Denies any headache, fever, head injury, neck pain, changes in vision/speech/mentation/hearing, URI, sore throat, chest pain, palpitations, syncope, cough, shortness of breath, wheeze, dyspnea, abdominal pain, nausea/vomiting/diarrhea, urinary retention, dysuria, hematuria, loss of control of bowel or bladder, numbness/tingling, saddle anesthesia, muscle paralysis/weakness, or rash. - Related Data Allergies/Adverse Reactions: No Known Allergies Allergy (Verified 02/03/17 22:50) Home Medications: keppra 500 mg 2 tabs every morning, 3 tabs every evening Past Medical History - Social History Smoking Status: Unknown if Ever Smoked Family History: Reviewed & Not Pertinent Patient has suicidal ideation: Yes Patient has homicidal ideation: No Neurological Medical History: Reports: Hx Seizures Renal/ Medical History: Denies: Hx Peritoneal Dialysis Psychiatric Medical History: Reports: Hx Depression Past Surgical History: Reports: Hx Genitourinary Surgery - Abcess behind bladder 2006, Hx Neurologic Surgery - FIRER GLOST KILN shunt, revised in 2006 - Immunizations Immunizations up to date: Yes Hx Diphtheria, Pertussis, Tetanus Vaccination: Yes Review of Systems - Review of Systems -: Yes All other systems reviewed and negative Physical Exam - Vital signs Vitals: Temp 97.7 F 08/18/19 18:33 - Notes Notes: PHYSICAL EXAMINATION: GENERAL: Well-appearing, well-nourished and in no acute distress. HEAD: Atraumatic, normocephalic. EYES: Pupils equal round and reactive to light, extraocular movements intact, sclera anicteric, conjunctiva are normal. ENT: Nares patent and without discharge. oropharynx clear without exudates. No tonsilar hypertrophy or erythema. Moist mucous membranes. NECK: Normal range of motion, supple without lymphadenopathy LUNGS: Breath sounds clear to auscultation bilaterally and equal. No wheezes rales or rhonchi. HEART: Regular rate and rhythm without murmurs, rubs, gallops. ABDOMEN: Soft, nontender, nondistended abdomen. No guarding, no rebound. Normal bowel sounds present. No CVA tenderness bilaterally. Musculoskeletal: FROM to passive/active. Strength 5+/5. Extremities: No cyanosis, clubbing, or edema b/l. Peripheral pulses 2+. Capillary refill less than 3 seconds. NEUROLOGICAL: Cranial nerves grossly intact. Normal speech, normal gait. Normal sensory, motor exams PSYCH: Normal mood, normal affect. SKIN: Warm, Dry, normal turgor, no rashes or lesions noted. Course - Re-evaluation Re-evalutation: 08/18/19 21:07 I did speak with Poison Control (they were already contacted around 530pm this evening). They did recommend observations for >=8hrs from ingestion time and routine labs. Labs unremarkable. Pt has remained asymptomatic. Vitals acceptable. Poison Control considers him "cleared" by their protocol at this time otherwise. Pt medically cleared for eval by our MH team in the morning. Pt to be placed on 24hr hold for SI with attempt. - Vital Signs Vital signs: Temp Pulse Resp BP Pulse Ox 97.7 F 19 106/81 100 08/18/19 18:33 08/18/19 20:00 08/18/19 20:00 08/18/19 20:00 - Laboratory Result Diagrams: 08/18/19 18:40 08/18/19 18:40 Laboratory results interpreted by me: 08/18/19 08/18/19 18:40 18:40 Lymph % (Auto) 49.7 H Seg Neutrophils % 40.7 L Calcium 10.4 H Total Protein 8.4 H Salicylates < 1.0 L Acetaminophen < 10 L Discharge - Discharge Clinical Impression: Suicide attempt Condition: Stable Disposition: PSYCH HOSP/UNIT
[2019-08-18 21:04] LABS: URINE AMPHETAMINES SCREEN NEGATIVE; URINE BARBITURATES SCREEN NEGATIVE; URINE BENZODIAZEPINES SCREEN NEGATIVE; URINE COCAINE SCREEN NEGATIVE; URINE MARIJUANA (THC) SCREEN NEGATIVE; URINE METHADONE SCREEN NEGATIVE; URINE PHENCYCLIDINE SCREEN NEGATIVE
--- NOTE | 2019-08-18 22:25 | EKG REPORT ---
SEVERITY:- NORMAL ECG - SINUS RHYTHM ST ELEV, PROBABLE NORMAL EARLY REPOL PATTERN : Confirmed by: Doni Sampson 18-Aug-2019 22:24:07
--- NOTE | 2019-08-19 14:46 | PSYCHOLOGICAL NOTE ---
Psych Note - Psych Note Date seen by psych provider: 08/19/19 Time seen by psych provider: 08:15 Psych Note: Reason for Consult: Reported Intentional Overdose Consent permissions: Mother and father Patient is a 23-year-old male with a history of seizures who presents after having taken he took approximately 80 tablets of Keppra 500 mg ER at 9 AM today. Patient states that he has been having suicidal ideations for the past couple months, mother states otherwise issues for last 1 to 2 years, and has been planning on overdosing. Patient's mother and father spoke with clinician separate from patient. 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 At he received a OIL PAINTER shunt which was revised in 2006. They continue to report that the patient does have a seizure disorder and sees a neurologist Dr. Whipple in [place]. Currently the patient does not have a mental health diagnosis. They report that the patient has disclosed or reported intentional overdose approximately 3 times. He is also engaged in self-harm of cutting himself. They report that the patient does have a difficult time with his family and communication. He had an IEP after the shunt was placed in 2006 in which he had a choice of obtaining a certificate or diploma. They report that the patient did obtain his high school diploma. He disclosed the patient smokes marijuana every day. Patient reports that his dad brought him to [facility] because he took pills. Patient reports he took "all of my Keppra The whole bottle." Patient states that he does not have a formal diagnosis however he is reports "I guess you would label it depression." Patient states he just does not care anymore and has been feeling sad since Saturday. He reports that he was arguing with his family and things her "just not going right." He confirms he currently lives with his aunt and states that while his parents would deny it they have kicked him out of their home. He continued to state he feels like no one is listening to him and there is a "disconnect with my family." Patient confirms he smokes marijuana daily stating that as soon as he starts coming down from his high he will smoke some more. He reports the last time he smoked marijuana was Saturday. He denies getting anything out of it stating "I do not get anything out of it is just repetitive by now." He is unable to remember why he even started smoking marijuana to begin with. Patient does appropriately engage with clinician and discusses frustration in not being able to be independent and drive because of his seizure disorder. He is unable to work currently because he must rely on other people to get him to his job. Patient does not live in town; [place] and will have to have transportation to any work. Clinician notes patient's mood becomes very dysphoric and patient stops engaging when asked about thoughts on continued suicidal ideation or what he wants to do with his future. Patient does finally reports that he doesn't know, he feels he has no purpose. Patient is alert and orientated to person, place, time and circumstance. Mood is overall euthymic with congruent affect never becomes very dysphoric and disconnected when discussing the future. Patient confirms intentional overdose. Delusions are absent and behaviors congruent with an intact reality based presentation ie organized and linear thought process. Eye contact is well- maintained. Conversational speech is within normal rate, tone and prosody. Intellectual abilities appear to be within the average range. Attention and concentration are good. Insight, judgment, impulse control are fair. Diagnosis: Depression due to medical diagnosis family discord Medication recommendations per [facility]'s contracted psychiatrist Dr. Ravi MITCHELL are as follows no medication recommendations at this time Impression\\plan: Patient is recommended for continue under IVC for overnight mental health observation. Patient appropriately engaged with clinician is very open and honest however becomes very disconnected and dysphoric when thinking of the future. Patient is unable to identify if he has continued thoughts of wanting to harm himself and will not answer when asked. Patient be reevaluated. Dr. David was consulted to care management of this patient; attending physicians in agreement with recommendations and disposition.
--- NOTE | 2019-08-19 14:48 | ER Document Report ---
Doctor's Note Notes: 08/19/19 12:45 PHYSICAL EXAMINATION: GENERAL: Well-appearing and in no acute distress. HEAD: Atraumatic, normocephalic. EYES: sclera anicteric, conjunctiva are normal. ENT: nares patent. Moist mucous membranes. NECK: Normal range of motion, supple without lymphadenopathy LUNGS: CTAB and equal. No wheezes rales or rhonchi. HEART: Regular rate and rhythm without murmurs ABDOMEN: Soft, nontender, normal bowel sounds, no guarding. EXTREMITIES: Normal range of motion, no pitting edema. No cyanosis. BACK: No midline tenderness. No CVA tenderness NEUROLOGICAL: Cranial nerves grossly intact. Normal speech. PSYCH: Normal mood, normal affect. SKIN: Warm, Dry, normal turgor, no rashes or lesions noted Patient resting comfortably on stretcher eating lunch. Patient denies any complaints at this time. Patient's grandfather/channeler outsole is at bedside with him. Spoke with mental health team who date that patient has acknowledged smoking marijuana to them and to family members. They would like the UDS repeated at this time as his initial UDS was negative for any marijuana. Patient otherwise is medically clear for discharge or transfer at this time pending mental health evaluation.
[2019-08-19 16:00] LABS: URINE AMPHETAMINES SCREEN NEGATIVE; URINE BARBITURATES SCREEN NEGATIVE; URINE BENZODIAZEPINES SCREEN NEGATIVE; URINE COCAINE SCREEN NEGATIVE; URINE MARIJUANA (THC) SCREEN NEGATIVE; URINE METHADONE SCREEN NEGATIVE; URINE PHENCYCLIDINE SCREEN NEGATIVE
--- NOTE | 2019-08-20 10:20 | PSYCHOLOGICAL NOTE ---
Psych Note - Psych Note Date seen by psych provider: 08/20/19 Time seen by psych provider: 08:30 Psych Note: Reason for Consult: Reported Intentional Overdose Consent permissions: Mother and father Patient is a 23-year-old male with a history of seizures who presents after having taken he took approximately 80 tablets of Keppra 500 mg ER Check in conducted with patient: Patient smiles to clinician upon clinician entering room. He reports that he is doing well and asked about being able to go home today. Patient denies any thoughts of wanting to harm himself. Clinician discussed the importance of therapeutic services; he confirms he will follow through with recommendation of therapy. Diagnosis: Depression due to medical diagnosis family discord Medication recommendations per [facility]'s contracted psychiatrist Dr. Ravi MITCHELL are as follows no medication recommendations at this time Impression\plan: Patient recommended for rescind of IVC and is cleared from acute psychiatric services. Patient's mood is euthymic with congruent affect. Patient denies any thoughts of wanting to harm himself. Patient is recommended to follow-up with outpatient mental health services for therapeutic sessions; there is concern in prescribing patient any psychiatric medication as patient's seizure disorder could be significantly impacted by this. Patient is recommended to receive neuropsychological testing to assist him in obtaining baseline functioning and possible diagnosis. Patient has a severe uncontrolled seizure disorder and is not receiving any wraparound services or SSI. Dr. David was consulted to care management of this patient; attending physicians in agreement with recommendations and disposition.
--- NOTE | 2019-08-20 10:36 | ER Document Report ---
Doctor's Note Notes: 08/20/19 10:35 Mental health recommendation is for the patient to follow-up outpatient. The patient states that he is completely out of his Keppra. I will refill 1 weeks worth of Keppra. He is to follow-up with his neurologist. Denies any suicidal or homicidal ideation. Appears well. He is in agreement with this plan. Follow-up precautions were given. Verbal discharge instructions were given to the patient. They verbalized understanding. They are stable for discharge. PHYSICAL EXAMINATION: GENERAL: Appears well, healthy, well-nourished, no acute distress. LUNGS: Equal breath sounds bilaterally and clear to auscultation. No wheezes rales or rhonchi. CARDIOVASCULAR: S1-S2, regular rate, regular rhythm. Radial pulses 2+, normal. ABDOMEN: Normoactive bowel sounds. Soft, nontender, no guarding, no rebound tenderness, and no masses palpated. PSYCH: Normal mood, normal affect.
[2019-08-20 11:07] VITALS: BP 125/75
== END 2019-08-20 11:00 | disposition home or self-care (01) ==
LOC: ER 18:00
DX: R45.851 Suicidal ideations (principal); F43.9 Reaction to severe stress, unspecified; Z98.2 Presence of cerebrospinal fluid drainage device
CPT/HCPCS: 36415; 80053; 80307; 81001; 85025; 93005; 93010; 99285

== ENCOUNTER 2020-01-02 13:56 | Inpatient (IN) | payer OTHER ==
--- NOTE | 2020-01-02 14:04 | ER Document Report ---
ED Medical Screen (RME) - General Chief Complaint: Seizure Stated Complaint: POSSIBLE SEIZURE Time Seen by Provider: 01/02/20 14:01 Mode of Arrival: Medic Information source: Patient Notes: 24-year-old male presented to ED for complaint of seizures x24 minutes. He does have a history of seizures and not taking his medicines. He is supposed to be on Keppra but they think he has not had it in at least 3 days. He has hydrocephalus. And Ativan 2 [address] in route EMS for his seizures. He is post ictal now. He is not having any active seizures at this time. EMS stated he was in [place] seizures during his transport to the hospital. He does have a oral airway in place. I have greeted and performed a rapid initial assessment of this patient. A comprehensive ED assessment and evaluation of the patient, analysis of test results and completion of medical decision making process will be conducted by an additional ED providers. TRAVEL OUTSIDE OF THE [place] IN LAST 30 DAYS: No - Related Data Allergies/Adverse Reactions: No Known Allergies Allergy (Verified 02/03/17 22:50) Past Medical History Neurological Medical History: Reports: Hx Seizures Renal/ Medical History: Denies: Hx Peritoneal Dialysis Psychiatric Medical History: Reports: Hx Depression Past Surgical History: Reports: Hx Genitourinary Surgery - Abcess behind bladder 2006, Hx Neurologic Surgery - SOLAR INSTALLATION TECHNICIAN shunt, revised in 2006 - Immunizations Immunizations up to date: Yes Hx Diphtheria, Pertussis, Tetanus Vaccination: Yes
[2020-01-02] MEDS ORDERED: LEVETIRACETAM 1000 MG/NACL-ISO 1,000 MG/100 ML RTUPB IV ONE (14:10)
[2020-01-02 14:39] LABS: APPEARANCE,URINE SLIGHTLY-CLOUDY; BILIRUBIN,URINE NEGATIVE (NEGATIVE); COLOR,URINE YELLOW; GLUCOSE, URINE >=500 mg/dL (NEGATIVE); KETONES,URINE NEGATIVE (NEGATIVE); LEUKOCYTE ESTERASE,URINE NEGATIVE (NEGATIVE); NITRITE,URINE NEGATIVE (NEGATIVE); PROTEIN,URINE >=500 mg/dL (NEGATIVE); UROBILINOGEN,URINE NEGATIVE mg/dL (<2.0)
[2020-01-02 14:47] LABS: ALBUMIN 4.7 g/dL (3.5-5.0); ALKALINE PHOSPHATASE 61 U/L (38-126); ASPARTATE AMINO TRANSFERASE 46 U/L (17-59); BILIRUBIN,TOTAL 0.3 mg/dL (0.2-1.3); BLOOD UREA NITROGEN 16 mg/dL (7-20); CALCIUM 10.1 mg/dL (8.4-10.2); GLUCOSE 285 mg/dL (75-110); POTASSIUM 5.6 mmol/L (3.6-5.0); TOTAL PROTEIN 8.3 g/dL (6.3-8.2)
[2020-01-02 14:51] LABS: CHLORIDE 98 mmol/L (98-107)
--- NOTE | 2020-01-02 14:58 | RADIOLOGY REPORT (SQ) ---
EXAM DESCRIPTION: CT HEAD WITHOUT IMAGES COMPLETED DATE/TIME: 01/02/2020 2:36 pm REASON FOR STUDY: hydrocephalus, seizure COMPARISON: 05/23/2019 TECHNIQUE: Axial images acquired through the brain without intravenous contrast. Images reviewed wi th bone, brain and subdural windows. Images stored on PACS. All CT scanners at this facility use dose modulation, iterative reconstruction, and/or weight based d osing when appropriate to reduce radiation dose to as low as reasonably achievable (ALARA). [facility]: Dose Right [facility]: SureCare [facility]: Dose Right [facility]: Teradose 4D [facility]: Smart CodeRyte RADIATION DOSE: CT Rad equipment meets quality standard of care and radiation dose reduction techniq ues were employed. CTDIvol: 53.2 mGy. DLP: 937 mGy-cm. mGy. LIMITATIONS: None. FINDINGS: VENTRICLES: Stable configuration, dysplastic appearance. No developing hydrocephalus. Ri ght frontal ventricular shunt catheter in place. CEREBRUM: No mass effect. No hemorrhage. No midline shift. Normal rausch/white matter differentiatio n. No evidence for acute territorial infarction. CEREBELLUM: No mass effect. No hemorrhage. No alteration of density. No evidence for acute infarct ion. EXTRAAXIAL SPACES: No fluid collections. ORBITS AND GLOBE: Symmetrical contour of the globes. CALVARIUM: No depressed skull fracture. PARANASAL SINUSES: No air-fluid level. SOFT TISSUES: No hematoma. IMPRESSION: Stable appearance of the brain without developing hydrocephalus. No acute or suspicious abnormality appreciated. TECHNICAL DOCUMENTATION: JOB ID: [id number] [id number]: Final reports with documentation of one or more dose reduction techniques (e.g., Automate d exposure control, adjustment of the mA and/or kV according to patient size, use of iterative recons truction technique) 2010 [employer]- All Rights Reserved Reading location - IP/workstation name: [email or web address]
[2020-01-02 15:00] LABS: URINE AMPHETAMINES SCREEN NEGATIVE; URINE BARBITURATES SCREEN NEGATIVE; URINE COCAINE SCREEN NEGATIVE; URINE METHADONE SCREEN NEGATIVE; URINE PHENCYCLIDINE SCREEN NEGATIVE
[2020-01-02 15:03] LABS: URINE BENZODIAZEPINES SCREEN UNCONFIRMED POSITIVE; URINE MARIJUANA (THC) SCREEN UNCONFIRMED POSITIVE
[2020-01-02 15:04] LABS: ALCOHOL < 10 mg/dL (NONE DETECTED); HEMATOCRIT 44.3 % (37.9-51.0); HEMOGLOBIN 14.1 g/dL (13.5-17.0); MEAN CORPUSCULAR HEMOGLOBIN 31.9 pg (27.0-33.4); MEAN CORPUSCULAR HGB CONC 31.9 g/dL (32.0-36.0); PLATELET COUNT 387 10^3/uL (150-450); RED BLOOD COUNT 4.44 10^6/uL (4.35-5.55); RED CELL DISTRIBUTION WIDTH 13.7 % (11.5-14.0); WHITE BLOOD COUNT 12.5 10^3/uL (4.0-10.5)
[2020-01-02 15:13] LABS: ANION GAP 31 (5-19)
[2020-01-02 15:15] LABS: CARBON DIOXIDE 9 mmol/L (22-30)
[2020-01-02] MEDS: NORMAL SALINE 1000 ML 1,000 ML IV PRN ×2 (15:23→16:40)
[2020-01-02 15:28] LABS: MEAN CORPUSCULAR VOLUME 100 fl (80-97)
[2020-01-02 15:31] LABS: ABSOLUTE LYMPHOCYTES# (MANUAL) 5.3 10^3/uL (0.5-4.7); ABSOLUTE MONOCYTES # (MANUAL) 0.6 10^3/uL (0.1-1.4); BASOPHILS % (MANUAL) 0 % (0-2); EOSINOPHILS % (MANUAL) 2 % (0-6); LYMPHOCYTES % (MANUAL) 42 % (13-45); METAMYELOCYTES % (MANUAL) 1 % (0-1); MONOCYTES % (MANUAL) 5 % (3-13); SEGMENTED NEUTROPHILS % (MAN) 50 % (42-78); TOTAL CELLS COUNTED 100
[2020-01-02 15:34] LABS: PLATELET CLUMPS PRESENT; PLATELET COMMENT ADEQUATE
--- NOTE | 2020-01-02 17:45 | ER Document Report ---
ED General - General Chief Complaint: Seizure Stated Complaint: POSSIBLE SEIZURE Time Seen by Provider: 01/02/20 14:01 Primary Care Provider: CHRISTY THAPA MD [Primary Care Provider] - Follow up as needed Mode of Arrival: Medic TRAVEL OUTSIDE OF THE [place] IN LAST 30 DAYS: No - HPI Notes: Patient is a 24-year-old male with a known history of seizure disorder presents to the emergency department for evaluation of a seizure. History is obtained entirely from EMS. Evidently the patient has not been taking his Keppra for the last 3 days. He had what turned out to be a 24-minute seizure per them. He received 10 mg of IV Versed and 2 mg of IV Ativan prior to arrival, seizure activity stopped. I cannot obtain any further history from the patient at this time. - Related Data Allergies/Adverse Reactions: No Known Allergies Allergy (Verified 02/03/17 22:50) Home Medications: Keppra Past Medical History - General Information source: Patient - Social History Smoking Status: Never Smoker Family History: Reviewed & Not Pertinent Patient has homicidal ideation: No Neurological Medical History: Reports: Hx Seizures - History of hydrocephalus Renal/ Medical History: Denies: Hx Peritoneal Dialysis Psychiatric Medical History: Reports: Hx Depression Past Surgical History: Reports: Hx Genitourinary Surgery - Abcess behind bladder 2006, Hx Neurologic Surgery - SKI TOW OPERATOR shunt, revised in 2006 - Immunizations Immunizations up to date: Yes Hx Diphtheria, Pertussis, Tetanus Vaccination: Yes Physical Exam - Vital signs Vitals: Temp 97.7 F 01/02/20 13:59 - Notes Notes: This is a 24-year-old male who appears his stated age, no acute distress. On initial exam the patient is snoring respirations with a nasal trumpet in place. Head is normocephalic. Pupils are equal and round, reactive to light. He has some mild blood and saliva trickling from the left corner of the mouth. Heart is regular rate and rhythm, lungs are clear to auscultation bilaterally. Abdomen soft, nontender, normoactive bowel sounds. Patient is drowsy, he will o pen his eyes to painful stimuli. Initially he would not follow commands. He is moving all 4 extremities spontaneously. Normal tone. Course - Re-evaluation Re-evalutation: 01/02/20 18:01 Patient presents to the emergency department for evaluation. Laboratory investigations were obtained. He is given IV fluids. He has a significant metabolic acidosis, mild TIBURCIO, all likely secondary to rhabdo from such a prolonged seizure. Patient had waxing and waning mental status, but no further seizure activity. He was loaded with IV Keppra here. My suspicion is that his mental status has not returned to baseline not only because of the seizure, but also because of the large amount of medication he received to treat the seizure. He stood at the end of the bed. He was able to answer a few questions, then went back to sleep. I did repeat his metabolic panel, it is pending at this time. CPK was added as well. ABG to assess acid-base balance was ordered as per IM physician request. He is able to intermittently follow commands. I spoke with Dr. English, he will accept the patient for further care. 01/02/20 18:04 - Vital Signs Vital signs: Temp Pulse Resp BP Pulse Ox 98.4 F 17 130/87 H 98 01/02/20 14:22 01/02/20 16:01 01/02/20 16:00 01/02/20 16:01 - Laboratory Result Diagrams: 01/02/20 14:09 01/02/20 14:09 Laboratory results interpreted by me: 01/02/20 01/02/20 01/02/20 14:09 14:09 14:17 WBC 12.5 H MCV 100 H D MCHC 31.9 L Abs Lymphs (Manual) 5.3 H Potassium 5.6 H Carbon Dioxide 9 L* Anion Gap 31 H Creatinine 1.73 H Est GFR (MDRD) Non-Af 49 L Glucose 285 H Magnesium 2.7 H Total Protein 8.3 H Urine Protein >=500 H Urine Glucose (UA) >=500 H Urine Blood MODERATE H Valproic Acid < 10.0 L - Diagnostic Test Radiology reviewed: Reports reviewed Radiology results interpreted by me: 01/02/20 18:[address] 01/02/20 14:11 IMPRESSION: Stable appearance of the brain without developing hydrocephalus. No acute or suspicious abnormality appreciated. Discharge - Discharge Clinical Impression: Seizure, Metabolic acidosis, Acute kidney injury, Hyperkalemia Condition: Stable Disposition: ADMITTED INPATIENT Admitting Provider: Tameka (Hospitalist) Unit Admitted: IMCU Referrals: CHRISTY THAPA MD [Primary Care Provider] - Follow up as needed
[2020-01-02] MEDS ORDERED: NORMAL SALINE 1000 ML 1,000 ML IV ONE (18:03)
[2020-01-02] MEDS ORDERED: ONDANSETRON HCL INJ/PF 4 MG/2 ML SDV IV PRN (18:06)
[2020-01-02] MEDS ORDERED: ONDANSETRON 4 MG TAB.RAPDIS PO PRN (18:06)
[2020-01-02 18:15] LABS: ANION GAP 9 (5-19); BLOOD UREA NITROGEN 16 mg/dL (7-20); CALCIUM 8.1 mg/dL (8.4-10.2); CHLORIDE 109 mmol/L (98-107)
[2020-01-02 18:17] LABS: CARBON DIOXIDE 20 mmol/L (22-30); POTASSIUM 4.1 mmol/L (3.6-5.0)
[2020-01-02 18:19] LABS: GLUCOSE 62 mg/dL (75-110)
[2020-01-02] MEDS ORDERED: DEXTROSE 50%-WATER 25 GM/50 ML DISP.SYRIN IV ONE (18:20)
[2020-01-02] MEDS ORDERED: LORAZEPAM INJ 2 MG/1 ML VIAL IV PRN (18:48)
--- NOTE | 2020-01-02 18:51 | PDOC H&P ---
History of Present Illness Admission Date/PCP: CHRISTY THAPA MD History of Present Illness: CARSON HOU is a 24 year old male (significant for seizure disorder, medication noncompliance, history of hydrocephalus with RECORD CENTER SPECIALIST shunt since revised in 2006, tobacco abuse, alcohol abuse, polysubstance abuse who presents with seizure lasting at least 29 minutes per his mother. She states there is only a brief break of a few seconds before he began seizing again in the middle of this period of time. She states patient frequently stops taking his medication because it is not a priority to him stating it does not have anything to do with side effects to her knowledge. She also states the patient likes to drink and libertarian heavily but he is not a daily drinker. She states he also uses marijuana and some other recreational drugs but she does not believe he uses any IV drugs. Patient is typically on Keppra 1000 mg in the morning and 1500 mg at night confirmed by his mother. On admission, patient has elevated creatinine and potassium consistent with likely rhabdomyolysis. CK and lactate not ordered prior to admission but I have not ordered these. Very likely will be quite high. IV fluids started and patient loaded with Keppra IV. Lung exam concerning for possible aspiration pneumonitis/pneumonia. Chest x-ray has now been ordered after admission as well. Will start on empiric IV cefepime. Sent to IM with seizure precautions. Past Medical History Cardiac Medical History: Reports: None Pulmonary Medical History: Reports: None Neurological Medical History: Reports: Seizures - History of hydrocephalus Psychiatric Medical History: Reports: Depression Past Surgical History Past Surgical History: RECORD CENTER SPECIALIST shunt since for hydrocephalus, revised in 2006 Hernia repair inguinal Clubfoot surgery Social History Information Source: Parent, Emergency Med Personnel, [facility] Records Lives with: Family Smoking Status: Current Every Day Smoker Frequency of Alcohol Use: Social Hx Recreational Drug Use: Yes Drugs: Marijuana - Advance Directive Resuscitation Status: Full Code Surrogate healthcare decision maker:: Mother Family History Family History: Reviewed & Not Pertinent Parental Family History Reviewed: Yes Children Family History Reviewed: Yes Sibling(s) Family History Reviewed.: Yes Medication/Allergy Home Medications: Levetiracetam [Keppra Xr 500 Mg Tab.Sr] 1,000 mg PO DAILY #14 tab.sr.24h 08/20/19 Levetiracetam [Keppra Xr 500 Mg Tab.Sr] 1,500 mg PO QHS #21 tab.sr.24h 12/19/19 Levetiracetam [Keppra Xr 500 mg Tab.sr] 1,000 mg PO DAILY 08/20/19 Levetiracetam [Keppra Xr 500 mg Tab.sr] 1,500 mg PO QHS 08/20/19 Allergies/Adverse Reactions: No Known Allergies Allergy (Verified 02/03/17 22:50) Review of Systems All systems: reviewed and no additional remarkable complaints except as stated - Review of systems not obtainable due to patient being obtunded postictal Physical Exam Vital Signs: Temp Pulse Resp BP Pulse Ox 98.4 F 17 130/87 H 98 01/02/20 14:22 01/02/20 16:01 01/02/20 16:00 01/02/20 16:01 Intake & Output 01/01/20 01/02/20 01/03/20 06:59 06:59 06:59 Intake Total 1100 Balance 1100 Weight 51.6 kg General appearance: PRESENT: cooperative, well-developed, well-nourished, other - Obtunded Head exam: PRESENT: atraumatic, normocephalic Eye exam: PRESENT: conjunctiva pink Mouth exam: PRESENT: moist Respiratory exam: PRESENT: crackles - Crackles primarily right-sided, unlabored. ABSENT: rales, rhonchi, tachypnea, wheezes Cardiovascular exam: PRESENT: RRR. ABSENT: diastolic murmur, rubs, systolic murmur GI/Abdominal exam: PRESENT: normal bowel sounds, soft. ABSENT: distended, guarding, mass, organolmegaly, rebound, tenderness Rectal exam: PRESENT: deferred Extremities exam: ABSENT: pedal edema Neurological exam: PRESENT: altered. ABSENT: alert, awake Psychiatric exam: PRESENT: flat affect Skin exam: PRESENT: dry, intact, warm Results Laboratory Results: 01/02/20 14:09 01/02/20 01/02/20 01/02/20 14:09 14:09 14:17 WBC 12.5 H RBC 4.44 Hgb 14.1 Hct 44.3 MCV 100 H D MCH 31.9 MCHC 31.9 L RDW 13.7 Plt Count 387 Seg Neutrophils % Not Reportable Sodium 138.3 Potassium 5.6 H Chloride 98 Carbon Dioxide 9 L* Anion Gap 31 H BUN 16 Creatinine 1.73 H Est GFR ( Amer) > 60 Glucose 285 H Calcium 10.1 Magnesium 2.7 H Total Bilirubin 0.3 AST 46 Alkaline Phosphatase 61 Total Protein 8.3 H Albumin 4.7 Urine Color YELLOW Urine Appearance SLIGHTLY-CLOUDY Urine pH 6.0 Ur Specific Harleigh 1.010 Urine Protein >=500 H Urine Glucose (UA) >=500 H Urine Ketones NEGATIVE Urine Blood MODERATE H Urine Nitrite NEGATIVE Ur Leukocyte Esterase NEGATIVE Urine WBC (Auto) 5 Urine RBC (Auto) 4 Impressions: Head CT 01/02/20 14:11 IMPRESSION: Stable appearance of the brain without developing hydrocephalus. No acute or suspicious abnormality appreciated. Assessment and Plan - Diagnosis (1) Seizure Is this a current diagnosis for this admission?: Yes Plan: Lasted for approximately 29 minutes with a brief 1 to 2-second break per mother who witnessed the seizure at home EMS gave 3 mg of Versed and 2 mg of Ativan in route which terminated the patient seizure EEG Patient follows with his neurologist Dr. Mani Whipple at [facility] neurology in [place] Patient is frequently noncompliant with his Keppra and abuses drugs and alcohol per his mother and his UDS is positive for marijuana and benzos IV Keppra 1000 mg a.m. and 1500 mg p.m. As needed Ativan IV Seizure precautions (2) Aspiration pneumonia Is this a current diagnosis for this admission?: Yes Plan: Chest x-ray is pending on admission, lung exam shows obvious crackles on the right side Empiric cefepime Blood cultures Respiratory cultures (3) Rhabdomyolysis Is this a current diagnosis for this admission?: Yes Plan: Due to seizure CK elevated over 700 on admission IV fluids (4) Acute kidney injury Is this a current diagnosis for this admission?: Yes Plan: Due to rhabdomyolysis and seizure IV fluids Trend BMP (5) Hyperkalemia Is this a current diagnosis for this admission?: Yes Plan: IV fluids, resolving Trend BMP (6) Metabolic acidosis Is this a current diagnosis for this admission?: Yes Plan: Due to lactic acidosis and renal failure As above - Time Time Spent with patient: 25-34 minutes Medications reviewed and adjusted accordingly: Yes Anticipated discharge: Home Within: within 72 hours - Inpatient Certification Based on my medical assessment, after consideration of the patient's comorbidities, presenting symptoms, or acuity I expect that the services needed warrant INPATIENT care.: Yes I certify that my determination is in accordance with my understanding of Medicare's requirements for reasonable and necessary INPATIENT services [42 CFR 412.3e].: Yes Medical Necessity: Significant Comorbidiites Make Outpatient Treatment Too Risky, Need Close Monitoring Due to Risk of Patient Decompensation, Need For IV Fluids, Need for IV Antibiotics, Risk of Complication if Not Cared For in Hospital, Risk of Diagnosis Which Will Require Inpatient Eval/Care/Monitoring
--- NOTE | 2020-01-02 18:53 | ADVANCED CARE ---
- Diagnosis (1) Seizure Diagnosis Current: Yes (2) Aspiration pneumonia Diagnosis Current: Yes (3) Rhabdomyolysis Diagnosis Current: Yes (4) Acute kidney injury Diagnosis Current: Yes (5) Hyperkalemia Diagnosis Current: Yes (6) Metabolic acidosis Diagnosis Current: Yes Attendance: Patient, patient's mother Resuscitation Status: Full Code Discussion: All aspects of CODE STATUS discussed including intubation/cardioversion/chest compressions with patient. By default his mother mother is his designated medical power of accounts clerk. Case discussed with her in detail. Time Spent: 17 minutes
[2020-01-02 19:04] LABS: ARTERIAL BLOOD H2CO3 1.21 mmol/L (1.05-1.35); ARTERIAL BLOOD O2 SATURATION 94.3 % (94-98); ARTERIAL BLOOD PCO2 40.3 mmHg (35-45); ARTERIAL BLOOD PH 7.37 (7.35-7.45); ARTERIAL BLOOD PO2 72.4 mmHg (80-100); ARTERIAL BLOOD TOTAL CO2 24.2 mmol/L (23-27)
[2020-01-02 19:05] LABS: ARTERIAL BLOOD FIO2 ROOM AIR
[2020-01-02] MEDS ORDERED: CEFEPIME 2 GM/D5W RTU 2 GM/50 ML RTUPB IV ONE (22:01)
[2020-01-02] MEDS: HEPARIN SOD (PORCINE) 5,000 UNIT/ML 1 ML VIAL SUBCUT SCH (22:04)
[2020-01-02] MEDS: CEFEPIME 2 GM/D5W RTU 2 GM/50 ML RTUPB IV SCH (22:05)
[2020-01-03] MEDS: RINGERS SOLUTION,LACTATED 1,000 ML IV PRN ×2 (00:56→15:36)
--- NOTE | 2020-01-03 01:21 | RADIOLOGY REPORT (SQ) ---
PA and lateral chest radiograph: 01/03/2020 12:19 AM CDT Comparison: None available Indication: 24-year old patient with aspiration, concern for infection. Findings: The cardiomediastinal silhouette is normal in size.No pneumothorax is seen. No acute airspace opacities are seen. No discrete pleural effusion is apparent. A right internal jugular central line catheter tip projects near the superior SVC. There is some artifact which overlying the patient and obscures portions of the lateral radiograph. Impression: No acute airspace opacities are seen.
[2020-01-03] MEDS: HEPARIN SOD (PORCINE) 5,000 UNIT/ML 1 ML VIAL SUBCUT SCH ×3 (05:45→21:24)
[2020-01-03] MEDS: CEFEPIME 2 GM/D5W RTU 2 GM/50 ML RTUPB IV SCH (05:46)
[2020-01-03] MEDS ORDERED: LEVETIRACETAM 1000 MG/NACL-ISO 1,000 MG/100 ML RTUPB IV SCH (06:00)
[2020-01-03 06:53] LABS: PHOSPHORUS 5.8 mg/dL (2.5-4.5)
[2020-01-03 06:54] LABS: ANION GAP 8 (5-19); BLOOD UREA NITROGEN 12 mg/dL (7-20); CALCIUM 9.3 mg/dL (8.4-10.2); CARBON DIOXIDE 25 mmol/L (22-30); CHLORIDE 106 mmol/L (98-107); GLUCOSE 85 mg/dL (75-110); POTASSIUM 4.2 mmol/L (3.6-5.0)
[2020-01-03 07:43] LABS: ABSOLUTE LYMPHOCYTES (AUTO) 1.6 10^3/uL (0.5-4.7); ABSOLUTE MONOCYTES (AUTO) 0.7 10^3/uL (0.1-1.4); ABSOLUTE NEUT (AUTO) 9.1 10^3/uL (1.7-8.2); BASOPHILS % (AUTO) 0.4 % (0-2); EOSINOPHILS % (AUTO) 0.1 % (0-6); HEMATOCRIT 40.3 % (37.9-51.0); HEMOGLOBIN 13.8 g/dL (13.5-17.0); LYMPHOCYTES % (AUTO) 13.8 % (13-45); MEAN CORPUSCULAR HEMOGLOBIN 31.2 pg (27.0-33.4); MEAN CORPUSCULAR HGB CONC 34.3 g/dL (32.0-36.0); MONOCYTES % (AUTO) 6.1 % (3-13); PLATELET COUNT 300 10^3/uL (150-450); RED BLOOD COUNT 4.42 10^6/uL (4.35-5.55); RED CELL DISTRIBUTION WIDTH 12.7 % (11.5-14.0); SEGMENTED NEUTROPHILS % (AUTO) 79.6 % (42-78); TOTAL CELLS COUNTED % (AUTO) 100 %; WHITE BLOOD COUNT 11.4 10^3/uL (4.0-10.5)
[2020-01-03 07:49] LABS: MEAN CORPUSCULAR VOLUME 91 fl (80-97)
--- NOTE | 2020-01-03 15:06 | PDOC PROGRESS REPORT ---
Subjective Progress Note for:: 01/03/20 Subjective:: Extensive discussion with patient today regarding his polysubstance abuse and his lack of medication compliance with his AED. Patient appears to be back at baseline mentation and is fully alert and oriented. He voiced understanding about our discussion and plans to improve his medical compliance in the future. He has no new complaints today and does not recall any of the events of yesterday. WBC lower, creatinine lower, CK rising. TSH normal, lactate normal. Patient can probably discharge tomorrow if his CK is downtrending and renal function is stable. Reason For Visit: STATUS EPILEPTICUS,CHRONIC SEIZURE DISORDER, Physical Exam Vital Signs: Temp Pulse Resp BP Pulse Ox 97.9 F 94 18 118/77 100 01/03/20 11:06 01/03/20 11:06 01/03/20 11:06 01/03/20 11:06 01/03/20 11:06 Intake & Output 01/02/20 01/03/20 01/04/20 06:59 06:59 06:59 Intake Total 3300 240 Output Total 825 425 Balance 2475 -185 Weight 47 kg General appearance: PRESENT: no acute distress, well-developed, well-nourished Head exam: PRESENT: atraumatic, normocephalic Eye exam: PRESENT: conjunctiva pink Mouth exam: PRESENT: moist Respiratory exam: PRESENT: clear to auscultation tobi. ABSENT: rales, rhonchi, wheezes Cardiovascular exam: PRESENT: RRR. ABSENT: diastolic murmur, rubs, systolic murmur GI/Abdominal exam: PRESENT: normal bowel sounds, soft. ABSENT: distended, guarding, mass, organolmegaly, rebound, tenderness Neurological exam: PRESENT: alert, awake, oriented to person, oriented to place, oriented to time, oriented to situation, CN II-XII grossly intact. ABSENT: motor sensory deficit Psychiatric exam: PRESENT: appropriate affect, normal mood Skin exam: PRESENT: dry, intact, warm Results Laboratory Results: 01/03/20 06:15 01/03/20 06:15 01/02/20 01/02/20 01/02/20 14:09 14:09 17:41 WBC 12.5 H RBC 4.44 Hgb 14.1 Hct 44.3 MCV 100 H D MCH 31.9 MCHC 31.9 L RDW 13.7 Plt Count 387 Seg Neutrophils % Not Reportable Carbonic Acid HCO3/H2CO3 Ratio ABG pH ABG pCO2 ABG pO2 ABG HCO3 ABG O2 Saturation ABG Base Excess FiO2 Sodium 138.3 137.9 Potassium 5.6 H 4.1 D Chloride 98 109 H Carbon Dioxide 9 L* 20 L D Anion Gap 31 H 9 BUN 16 16 Creatinine 1.73 H 1.11 Est GFR ( Amer) > 60 > 60 Glucose 285 H 62 L Lactic Acid Calcium 10.1 8.1 L Phosphorus Magnesium 2.7 H Total Bilirubin 0.3 AST 46 Alkaline Phosphatase 61 Total Protein 8.3 H Albumin 4.7 TSH 01/02/20 01/03/20 01/03/20 18:36 00:39 06:15 WBC RBC Hgb Hct MCV MCH MCHC RDW Plt Count Seg Neutrophils % Carbonic Acid 1.21 HCO3/H2CO3 Ratio 19:1 ABG pH 7.37 ABG pCO2 40.3 ABG pO2 72.4 L ABG HCO3 23.0 ABG O2 Saturation 94.3 ABG Base Excess -2.0 FiO2 ROOM AIR Sodium Potassium Chloride Carbon Dioxide Anion Gap BUN Creatinine Est GFR ( Amer) Glucose Lactic Acid 1.5 Calcium Phosphorus 5.8 H Magnesium 2.0 Total Bilirubin AST Alkaline Phosphatase Total Protein Albumin TSH 01/03/20 01/03/20 01/03/20 06:15 06:15 06:15 WBC Cancelled RBC Cancelled Hgb Cancelled Hct Cancelled MCV Cancelled MCH Cancelled MCHC Cancelled RDW Cancelled Plt Count Cancelled Seg Neutrophils % Cancelled Carbonic Acid HCO3/H2CO3 Ratio ABG pH ABG pCO2 ABG pO2 ABG HCO3 ABG O2 Saturation ABG Base Excess FiO2 Sodium 139.4 Potassium 4.2 Chloride 106 Carbon Dioxide 25 Anion Gap 8 BUN 12 Creatinine 1.03 Est GFR ( Amer) > 60 Glucose 85 Lactic Acid Calcium 9.3 Phosphorus Magnesium Total Bilirubin AST Alkaline Phosphatase Total Protein Albumin TSH 0.72 01/03/20 06:15 WBC 11.4 H RBC 4.42 Hgb 13.8 Hct 40.3 MCV 91 D MCH 31.2 MCHC 34.3 RDW 12.7 Plt Count 300 Seg Neutrophils % 79.6 H Carbonic Acid HCO3/H2CO3 Ratio ABG pH ABG pCO2 ABG pO2 ABG HCO3 ABG O2 Saturation ABG Base Excess FiO2 Sodium Potassium Chloride Carbon Dioxide Anion Gap BUN Creatinine Est GFR ( Amer) Glucose Lactic Acid Calcium Phosphorus Magnesium Total Bilirubin AST Alkaline Phosphatase Total Protein Albumin TSH 01/02/20 01/03/20 01/03/20 17:41 00:39 06:15 Creatine Kinase 739 H 1135 H 1236 H Impressions: Head CT 01/02/20 14:11 IMPRESSION: Stable appearance of the brain without developing hydrocephalus. No acute or suspicious abnormality appreciated. Assessment and Plan - Diagnosis (1) Seizure Is this a current diagnosis for this admission?: Yes Plan: Lasted for approximately 29 minutes with a brief 1 to 2-second break per mother who witnessed the seizure at home EMS gave 3 mg of Versed and 2 mg of Ativan in route which terminated the patient seizure EEG Patient follows with his neurologist Dr. Mani Whipple at [facility] neurology in [place] Patient is frequently noncompliant with his Keppra and abuses drugs and alcohol per his mother and his UDS is positive for marijuana and benzos IV Keppra 1000 mg a.m. and 1500 mg p.m. As needed Ativan IV Seizure precautions 01/03/2020 Extensive discussion with the patient regarding stopping his polysubstance abuse, he voiced understanding. Discussed with him that he is very fortunate to have not sustained any apparent anoxic brain injury given he had a seizure lasting approximately 30 minutes according to his mother. Restart oral Keppra at discharge (2) Aspiration pneumonia Qualifiers: Aspiration pneumonia type: due to gastric secretions Lung location: unspecified part of lung Is this a current diagnosis for this admission?: Yes Plan: Chest x-ray is pending on admission, lung exam shows obvious crackles on the right side Empiric cefepime Blood cultures 01/03/2020 Can transition antibiotics to oral at discharge to complete 5-day course (3) Rhabdomyolysis Is this a current diagnosis for this admission?: Yes Plan: Due to seizure CK elevated over 700 on admission IV fluids 01/03/2020 CK uptrending, trend CK until downtrending (4) Acute kidney injury Is this a current diagnosis for this admission?: Yes Plan: Due to rhabdomyolysis and seizure IV fluids Trend BMP Resolved (5) Hyperkalemia Is this a current diagnosis for this admission?: Yes (6) Metabolic acidosis Is this a current diagnosis for this admission?: Yes - Time Time Spent with patient: 15-24 minutes Medications reviewed and adjusted accordingly: Yes Anticipated discharge: Home Within: within 48 hours - Inpatient Certification Based on my medical assessment, after consideration of the patient's comorbidities, presenting symptoms, or acuity I expect that the services needed warrant INPATIENT care.: Yes I certify that my determination is in accordance with my understanding of Medicare's requirements for reasonable and necessary INPATIENT services [42 CFR 412.3e].: Yes Medical Necessity: Significant Comorbidiites Make Outpatient Treatment Too Risky, Need Close Monitoring Due to Risk of Patient Decompensation, Need For IV Fluids, Need for IV Antibiotics, Risk of Complication if Not Cared For in Hospit al, Risk of Diagnosis Which Will Require Inpatient Eval/Care/Monitoring
[2020-01-03] MEDS: CEFEPIME HCL 2 GM in DEXTROSE 5%-WATER 50 ML IV SCH ×2 (15:36→21:25)
[2020-01-03] MEDS: LEVETIRACETAM 1500 MG/NACL-ISO 1,500 MG/100 ML RTUPB IV SCH (17:01)
[2020-01-04] MEDS: RINGERS SOLUTION,LACTATED 1,000 ML IV PRN ×2 (01:15→21:14)
[2020-01-04] MEDS: HEPARIN SOD (PORCINE) 5,000 UNIT/ML 1 ML VIAL SUBCUT SCH ×3 (06:00→21:13)
[2020-01-04] MEDS: CEFEPIME HCL 2 GM in DEXTROSE 5%-WATER 50 ML IV SCH ×3 (06:00→21:13)
[2020-01-04] MEDS: LEVETIRACETAM 1000 MG/NACL-ISO 1,000 MG/100 ML RTUPB IV SCH (10:28)
[2020-01-04] MEDS ORDERED: VANCOMYCIN HCL INJ 1000 MG VIAL IV ONE (13:17)
--- NOTE | 2020-01-04 13:25 | PDOC PROGRESS REPORT ---
Subjective Progress Note for:: 01/04/20 Subjective:: 01/03/2020 Extensive discussion with patient today regarding his polysubstance abuse and his lack of medication compliance with his AED. Patient appears to be back at b aseline mentation and is fully alert and oriented. He voiced understanding about our discussion and plans to improve his medical compliance in the future. He has no new complaints today and does not recall any of the events of yesterday. WBC lower, creatinine lower, CK rising. TSH normal, lactate normal. Patient can probably discharge tomorrow if his CK is downtrending and renal function is stable. 01/04/2020 During my encounter with the patient and he voiced he had no complaints today. 1 of his blood cultures was positive for GPC's and this was suspected to be a contaminant, however now the second blood culture is also positive for the same. Vancomycin IV has been started. Patient did not make any mention of depression or suicidal ideations to me during our encounter, however his nurse did state later in the day that he was voicing complaints of depression and stated he wanted to kill himself. We will consult psychiatry and place the patient on suicide watch. He will need a sitter at bedside. He will not be discharged today obviously. Reason For Visit: STATUS EPILEPTICUS,CHRONIC SEIZURE DISORDER, Physical Exam Vital Signs: Temp Pulse Resp BP Pulse Ox 99.2 F 65 20 137/81 H 100 01/04/20 08:09 01/04/20 08:09 01/04/20 08:09 01/04/20 08:09 01/04/20 08:09 Intake & Output 01/03/20 01/04/20 01/05/20 06:59 06:59 06:59 Intake Total 3300 3114 Output Total 825 4300 Balance 6775 -3166 Weight 47 kg 48.5 kg General appearance: PRESENT: no acute distress, well-developed, well-nourished Head exam: PRESENT: atraumatic, normocephalic Eye exam: PRESENT: conjunctiva pink Mouth exam: PRESENT: moist Respiratory exam: PRESENT: clear to auscultation tobi. ABSENT: rales, rhonchi, wheezes Cardiovascular exam: PRESENT: RRR. ABSENT: diastolic murmur, rubs, systolic murmur GI/Abdominal exam: PRESENT: normal bowel sounds, soft. ABSENT: distended, guarding, mass, organolmegaly, rebound, tenderness Musculoskeletal exam: PRESENT: ambulatory Neurological exam: PRESENT: alert, awake, oriented to person, oriented to place, oriented to time, oriented to situation, CN II-XII grossly intact. ABSENT: motor sensory deficit Psychiatric exam: PRESENT: depressed, normal mood, suicidal ideation Skin exam: PRESENT: dry, intact, warm Results Laboratory Results: 01/03/20 06:15 01/03/20 06:15 01/02/20 01/03/20 01/03/20 17:41 00:39 06:15 Creatine Kinase 739 H 1135 H 1236 H 01/04/20 09:55 Creatine Kinase 653 H Impressions: Head CT 01/02/20 14:11 IMPRESSION: Stable appearance of the brain without developing hydrocephalus. No acute or suspicious abnormality appreciated. Assessment and Plan - Diagnosis (1) Seizure Is this a current diagnosis for this admission?: Yes (2) Aspiration pneumonia Qualifiers: Aspiration pneumonia type: due to gastric secretions Lung location: unspecified part of lung Is this a current diagnosis for this admission?: Yes (3) Rhabdomyolysis Is this a current diagnosis for this admission?: Yes (4) Acute kidney injury Is this a current diagnosis for this admission?: Yes (5) Hyperkalemia Is this a current diagnosis for this admission?: Yes (6) Metabolic acidosis Is this a current diagnosis for this admission?: Yes (7) Depression with suicidal ideation Is this a current diagnosis for this admission?: Yes Plan: On 01/04/2020 patient began telling his nurse that he had suicidal ideations and was depressed. He has no specific plans for suicide. Consulted psychiatry Suicide watcherlin at bedside - Time Time Spent with patient: 25-34 minutes Medications reviewed and adjusted accordingly: Yes Anticipated discharge: Home Within: within 48 hours - Inpatient Certification Based on my medical assessment, after consideration of the patient's comorbidities, presenting symptoms, or acuity I expect that the services needed warrant INPATIENT care.: Yes I certify that my determination is in accordance with my understanding of Medicare's requirements for reasonable and necessary INPATIENT services [42 CFR 412.3e].: Yes Medical Necessity: Significant Comorbidiites Make Outpatient Treatment Too Risky, Need Close Monitoring Due to Risk of Patient Decompensation, Need for IV Antibiotics, Risk of Complication if Not Cared For in Hospital, Risk of Diagnosis Which Will Require Inpatient Eval/Care/Monitoring
[2020-01-04] MEDS ORDERED: VANCOMYCIN HCL 1,000 MG in DEXTROSE 5%-WATER 250 ML IV ONE (15:00)
[2020-01-04] MEDS: LEVETIRACETAM 1500 MG/NACL-ISO 1,500 MG/100 ML RTUPB IV SCH (17:47)
[2020-01-05] MEDS ORDERED: VANCOMYCIN HCL 500 MG in DEXTROSE 5%-WATER 100 ML IV SCH (03:00)
[2020-01-05] MEDS: VANCOMYCIN HCL 750 MG in DEXTROSE 5%-WATER 250 ML IV SCH ×2 (03:36→16:07)
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
[2020-01-05] MEDS: CEFEPIME HCL 2 GM in DEXTROSE 5%-WATER 50 ML IV SCH ×3 (05:57→21:21)
[2020-01-05] MEDS: HEPARIN SOD (PORCINE) 5,000 UNIT/ML 1 ML VIAL SUBCUT SCH ×3 (05:58→21:21)
[2020-01-05 07:10] LABS: ABSOLUTE BASOPHILS # (AUTO) 0.1 10^3/uL (0.0-0.2); ABSOLUTE EOSINOPHILS # (AUTO) 0.3 10^3/uL (0.0-0.6); ABSOLUTE LYMPHOCYTES (AUTO) 2.2 10^3/uL (0.5-4.7); ABSOLUTE MONOCYTES (AUTO) 0.9 10^3/uL (0.1-1.4); ABSOLUTE NEUT (AUTO) 3.9 10^3/uL (1.7-8.2); EOSINOPHILS % (AUTO) 4.3 % (0-6); HEMATOCRIT 40.2 % (37.9-51.0); HEMOGLOBIN 13.8 g/dL (13.5-17.0); LYMPHOCYTES % (AUTO) 29.6 % (13-45); MEAN CORPUSCULAR HEMOGLOBIN 31.7 pg (27.0-33.4); MEAN CORPUSCULAR HGB CONC 34.4 g/dL (32.0-36.0); MEAN CORPUSCULAR VOLUME 92 fl (80-97); MONOCYTES % (AUTO) 11.6 % (3-13); PLATELET COUNT 298 10^3/uL (150-450); RED BLOOD COUNT 4.37 10^6/uL (4.35-5.55); RED CELL DISTRIBUTION WIDTH 12.5 % (11.5-14.0); SEGMENTED NEUTROPHILS % (AUTO) 53.5 % (42-78); TOTAL CELLS COUNTED % (AUTO) 100 %; WHITE BLOOD COUNT 7.4 10^3/uL (4.0-10.5)
[2020-01-05] MEDS: LEVETIRACETAM 1000 MG/NACL-ISO 1,000 MG/100 ML RTUPB IV SCH (08:57)
--- NOTE | 2020-01-05 15:54 | PDOC PROGRESS REPORT ---
Subjective Progress Note for:: 01/05/20 Subjective:: 01/03/2020 Extensive discussion with patient today regarding his polysubstance abuse and his lack of medication compliance with his AED. Patient appears to be back at b aseline mentation and is fully alert and oriented. He voiced understanding about our discussion and plans to improve his medical compliance in the future. He has no new complaints today and does not recall any of the events of yesterday. WBC lower, creatinine lower, CK rising. TSH normal, lactate normal. Patient can probably discharge tomorrow if his CK is downtrending and renal function is stable. 01/04/2020 During my encounter with the patient and he voiced he had no complaints today. 1 of his blood cultures was positive for GPC's and this was suspected to be a contaminant, however now the second blood culture is also positive for the same. Vancomycin IV has been started. Patient did not make any mention of depression or suicidal ideations to me during our encounter, however his nurse did state later in the day that he was voicing complaints of depression and stated he wanted to kill himself. We will consult psychiatry and place the patient on suicide watch. He will need a sitter at bedside. He will not be discharged today obviously. 01/05/2020 Had a very long talk with the patient today about his suicidal ideations. He is very distraught over the of his friend recently and is a bit fixated on his left forearm tattoo that reads "ghost", stating that it used to say "black ghost" but he scraped off the word black because it identified him as a black person instead of just a human being. He states that he smokes marijuana with his friends because that is the only time that he feels happy and he is concerned that he and his family need to go to family counseling to work for some other problems. He does state that he is not going to stop using marijuana and I asked that he at least continue taking his Keppra as directed as this might prevent him from having future seizures. 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 I am concerned that at some point in the future he may actually attempt or succeed in committing suicide given the research that has been done on traumatic brain injury patients with refractory depression and suicidal ideations. I believe he needs close psychiatric follow-up after discharge and when I brought this to his attention, he agreed with me. Medically, he is doing quite well. His blood pressure is a bit elevated and we will stop his IV fluids today. Curiously, he has 2/2 blood cultures positive for gram-positive cocci in clusters which I can only assume is due to his aspiration pneumonia. Reason For Visit: STATUS EPILEPTICUS,CHRONIC SEIZURE DISORDER, Physical Exam Vital Signs: Temp Pulse Resp BP Pulse Ox 98.5 F 82 18 137/96 H 100 01/05/20 12:33 01/05/20 14:00 01/05/20 12:33 01/05/20 12:33 01/05/20 12:33 Intake & Output 01/04/20 01/05/20 01/06/20 06:59 06:59 06:59 Intake Total 3164 2670 100 Output Total 4300 1925 Balance -1136 745 100 Weight 48.5 kg 48.5 kg General appearance: PRESENT: no acute distress, well-developed, well-nourished Head exam: PRESENT: atraumatic, normocephalic Eye exam: PRESENT: conjunctiva pink Mouth exam: PRESENT: moist Respiratory exam: PRESENT: clear to auscultation tobi. ABSENT: rales, rhonchi, wheezes Cardiovascular exam: PRESENT: RRR. ABSENT: diastolic murmur, rubs, systolic murmur GI/Abdominal exam: PRESENT: normal bowel sounds, soft. ABSENT: distended, guarding, mass, organolmegaly, rebound, tenderness Neurological exam: PRESENT: alert, awake, oriented to person, oriented to place, oriented to time, oriented to situation Psychiatric exam: PRESENT: appropriate affect, normal mood Skin exam: PRESENT: dry, intact, warm Results Laboratory Results: 01/05/20 06:43 01/03/20 06:15 01/05/20 06:43 WBC 7.4 RBC 4.37 Hgb 13.8 Hct 40.2 MCV 92 MCH 31.7 MCHC 34.4 RDW 12.5 Plt Count 298 Seg Neutrophils % 53.5 01/02/20 01/03/20 01/03/20 17:41 00:39 06:15 Creatine Kinase 739 H 1135 H 1236 H 01/04/20 09:55 Creatine Kinase 653 H Impressions: Head CT 01/02/20 14:11 IMPRESSION: Stable appearance of the brain without developing hydrocephalus. No acute or suspicious abnormality appreciated. Assessment and Plan - Diagnosis (1) Seizure Is this a current diagnosis for this admission?: Yes Plan: Lasted for approximately 29 minutes with a brief 1 to 2-second break per mother who witnessed the seizure at home EMS gave 3 mg of Versed and 2 mg of Ativan in route which terminated the patien t seizure EEG Patient follows with his neurologist Dr. Mani Whipple at [facility] in [place] Patient is frequently noncompliant with his Keppra and abuses drugs and alcohol per his mother and his UDS is positive for marijuana and benzos IV Keppra 1000 mg a.m. and 1500 mg p.m. As needed Ativan IV Seizure precautions 01/03/2020 Extensive discussion with the patient regarding stopping his polysubstance abuse, he voiced understanding. Discussed with him that he is very fortunate to have not sustained any apparent anoxic brain injury given he had a seizure lasting approximately 30 minutes according to his mother. Restart oral Keppra at discharge 01/05/2020 Counseled on continuing to take his Keppra even if he decides to continue abusing substances. He voiced understanding and stated he would "try" No further seizures since admission (2) Aspiration pneumonia Qualifiers: Aspiration pneumonia type: due to gastric secretions Lung location: unspecified part of lung Is this a current diagnosis for this admission?: Yes (3) Rhabdomyolysis Is this a current diagnosis for this admission?: Yes (4) Acute kidney injury Is this a current diagnosis for this admission?: Yes (5) Hyperkalemia Is this a current diagnosis for this admission?: Yes (6) Metabolic acidosis Is this a current diagnosis for this admission?: Yes (7) Depression with suicidal ideation Is this a current diagnosis for this admission?: Yes Plan: On 01/04/2020 patient began telling his nurse that he had suicidal ideations and was depressed. He has no specific plans for suicide. Consulted psychiatry Suicide watcherlin at bedside 01/05/2020 Psychiatry is seen the patient and evaluated him. They would like to follow with him for the next day at least. He will not be discharged today so that he can continue getting psychiatric treatment. Very likely has long-term high risk for committing suicide given his history of brain injury from due to hydrocephalus and [employer] shunt placement. He will need close psychiatric follow-up after he is discharged (8) Gram-positive bacteremia Is this a current diagnosis for this admission?: Yes Plan: Source likely aspiration pneumonia Cultures pending Vancomycin/cefepime - Time Time Spent with patient: 25-34 minutes Medications reviewed and adjusted accordingly: Yes Anticipated discharge: Home Within: within 48 hours - Inpatient Certification Based on my medical assessment, after consideration of the patient's comorbidities, presenting symptoms, or acuity I expect that the services needed warrant INPATIENT care.: Yes I certify that my determination is in accordance with my understanding of Medicare's requirements for reasonable and necessary INPATIENT services [42 CFR 412.3e].: Yes Medical Necessity: Significant Comorbidiites Make Outpatient Treatment Too Risky, Need Close Monitoring Due to Risk of Patient Decompensation, Need for IV Antibiotics, Risk of Complication if Not Cared For in Hospital, Risk of Diagnosis Which Will Require Inpatient Eval/Care/Monitoring
[2020-01-05] MEDS: LEVETIRACETAM 1500 MG/NACL-ISO 1,500 MG/100 ML RTUPB IV SCH (18:09)
--- NOTE | 2020-01-05 18:24 | PSYCHOLOGICAL NOTE ---
Psych Note - Psych Note Date seen by psych provider: 01/05/20 Time seen by psych provider: 14:30 - 1430 review of Pyshcological Testing Paperwork. Phone conversation with father from [id number]. [facility] DSS/APS contact at 1748. 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 Upon discharge planning yesterday (01/04/2020) patient expressed suicidal ideation. Conducted [id number] evaluation with patient and obtained collateral from patient's father via telephone yesterday (01/04/2020). Today did receive an email as requested from mother with the psychological testing paperwork. Dr. David and this clinician reviewed that paperwork. Psychological Testing completed by Dr. Elio Moss PhD ([place] Pyshcologist #[id number]), [facility] in [place], [place]. Services were conducted on 10/03/2019 and 10/24/2019. Diagnoses were Unspecified Major Neurocognitive Disorder With Behavioral Disturbance, Major Depression Disorder Recurrent With Anxious Disturbance and Cannabis Use Disorder Moderate. Noted was patient has a history of recurrent suicidal ideation with past attempts of overdosing on prescribed medication, daily use of cannabis, testing results from [id number] indicated elevated risk of developing substance abuse disorder and risk of suicidal behavior so a behavioral health treatment team should consider addressing the use of marijuana and alcohol which increases the risk of suicidal ideation/poor judgment/exacerbation of behavioral symptoms and incorporate of suicidal ideation risk safety plan which would include warning signs/coping strategies/available natural and professional supports/access to 24 hour crisis. It recommended appointing a guardian, obtaining disability, utilization of Individuals with disability for mentoring vocational assistance. Spoke to patient's father Carlos Person ([phone]) regarding psychological testing recommendations and if they were interested in guardianship. He stated yes and gave verbal consent to assist in any way possible. He identified they reside in [facility]. He asked about his (father's) job paperwork for what sounded like FMLA (was informed typically that is paperwork filled out by current ongoing provider who is involved with care and treatment). Father stated he figured and commented patient's next appointment with Neurologist Dr. Whipple is 03/07/2020. He stated if he is not available mother could be contacted and confirmed the number listed on demographic sheet. Coordinated with Hospitalist Dr. English regarding evaluation, psychological testing results/recommendations, patient being cleared from acute psychiatric services and linkages the [facility] Beh Health team will make ([facility], therapy referral). He stated he feels patient is high risk for suicide. He agreed there is a cognitive issue, attention waxes and wanes and patient being emotionally labile. He identified patient is not medically cleared due to positive blood cultures today so at least another day of being admitted. Made contact with [facility]. Spoke to Radha ([phone], cell, not to be given out). She took information and stated there is no evidence listed for an APS report but could assist with guardianship. She spoke to her boiler house supervisor who confirmed there is no definition of abuse, neglect or exploitation therefore a report could not be made however they can assign an APS SW (likely Shantel Holcomb) for Community Outreach to aid with guardianship process and linkages [facility] programs. Behavioral health team coordinated with Carlos Max with [facility] (one of the therapist listed in the psychological testing paperwork for referral) to schedule patient an appointment. Mr. Santana was provided with behavioral health clinician's email address to send over referral form so appointment could be scheduled. At 2011 called patient's mother and informed her of plan of care so far: still in hospital for medical issues, [facility]/APS SW for Community Outreach should be reaching out to them for guardianship process and any other programs that could be helpful to patient and family, and contact with a therapist Dr. Elio Moss provided. 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 There is concern for neurocognitive impairment which is organic and felt to be exacerbated by shunt placements causing significant functioning issues in various domains (memory, impulse control, conversational speech, processing, emotional lability, reasoning, judgment) as specified in the psychological testing. He had Psychological Testing Completed October [address] Elio Moss. Parents were able to get this paperwork to the [facility] Behavioral Health team and it was reviewed extensively by Dr. David. [facility] Behavioral Health obtained verbal consent from father to assist with guardianship (Dr. David to complete Affidavit, made contact with [facility] who will assign [facility] for Community Outreach) and link to a therapy referral provided by Dr. Elio Moss. Discussed with parents the need to be in control of patient's medications and administration, all medications in the home to be locked up and unavailable to patient, limiting means and access since he has a noted history of suicidal ideation with attempts via overdose. Consulted with Dr. David regarding the management and care of patient. Attending Hospitalist made aware of plan of care.
[2020-01-06] MEDS: VANCOMYCIN HCL 750 MG in DEXTROSE 5%-WATER 250 ML IV SCH ×2 (03:31→18:32)
[2020-01-06] MEDS: CEFEPIME HCL 2 GM in DEXTROSE 5%-WATER 50 ML IV SCH ×3 (05:08→22:05)
[2020-01-06] MEDS: HEPARIN SOD (PORCINE) 5,000 UNIT/ML 1 ML VIAL SUBCUT SCH ×3 (05:09→22:05)
[2020-01-06] MEDS: LEVETIRACETAM 1000 MG/NACL-ISO 1,000 MG/100 ML RTUPB IV SCH (09:06)
[2020-01-06 10:21] LABS: ANION GAP 9 (5-19); BLOOD UREA NITROGEN 9 mg/dL (7-20); CARBON DIOXIDE 29 mmol/L (22-30); CHLORIDE 101 mmol/L (98-107); GLUCOSE 99 mg/dL (75-110); POTASSIUM 4.4 mmol/L (3.6-5.0)
--- NOTE | 2020-01-06 10:22 | PDOC PROGRESS REPORT ---
Subjective Progress Note for:: 01/06/20 Subjective:: 01/03/2020 Extensive discussion with patient today regarding his polysubstance abuse and his lack of medication compliance with his AED. Patient appears to be back at b aseline mentation and is fully alert and oriented. He voiced understanding about our discussion and plans to improve his medical compliance in the future. He has no new complaints today and does not recall any of the events of yesterday. WBC lower, creatinine lower, CK rising. TSH normal, lactate normal. Patient can probably discharge tomorrow if his CK is downtrending and renal function is stable. 01/04/2020 During my encounter with the patient and he voiced he had no complaints today. 1 of his blood cultures was positive for GPC's and this was suspected to be a contaminant, however now the second blood culture is also positive for the same. Vancomycin IV has been started. Patient did not make any mention of depression or suicidal ideations to me during our encounter, however his nurse did state later in the day that he was voicing complaints of depression and stated he wanted to kill himself. We will consult psychiatry and place the patient on suicide watch. He will need a sitter at bedside. He will not be discharged today obviously. 01/05/2020 Had a very long talk with the patient today about his suicidal ideations. He is very distraught over the of his friend recently and is a bit fixated on his left forearm tattoo that reads "ghost", stating that it used to say "black ghost" but he scraped off the word black because it identified him as a black person instead of just a human being. He states that he smokes marijuana with his friends because that is the only time that he feels happy and he is concerned that he and his family need to go to family counseling to work for some other problems. He does state that he is not going to stop using marijuana and I asked that he at least continue taking his Keppra as directed as this might prevent him from having future seizures. I believe he suffers from depression and cognitive impairment directly related to his brain injury that he suffered from due to hydrocephalus and [employer] shunt placement. I am concerned that at some point in the future he may actually attempt or succeed in committing suicide given the research that has been done on traumatic brain injury patients with refractory depression and suicidal ideations. I believe he needs close psychiatric follow-up after discharge and when I brought this to his attention, he agreed with me. Medically, he is doing quite well. His blood pressure is a bit elevated and we will stop his IV fluids today. Curiously, he has 2/2 blood cultures positive for gram-positive cocci in clusters which I can only assume is due to his aspiration pneumonia. 01/06/2020 Blood cultures are only partially resulted in their growing what appears to be staph epi. I discussed the results with microbiology staff who stated they will perform susceptibility testing but they are suspicious this may be a contaminant. I have already ordered an echocardiogram which is in progress now to ensure he does not have any endocarditis. Patient denies using any IV drugs but given his chronic brain injury and abuse of other substances it may be worth looking into to rule out endocarditis. Repeat blood cultures have been drawn and should be resulted by tomorrow. If we can confirm the original blood cultures were contaminants and the second blood cultures are negative, patient can be discharged tomorrow assuming psychiatry agrees with this. Reason For Visit: STATUS EPILEPTICUS,CHRONIC SEIZURE DISORDER, Physical Exam Vital Signs: Temp Pulse Resp BP Pulse Ox 98.5 F 60 18 122/77 100 01/06/20 08:06 01/06/20 08:06 01/06/20 08:06 01/06/20 08:06 01/06/20 08:06 Intake & Output 01/05/20 01/06/20 01/07/20 06:59 06:59 06:59 Intake Total 2670 3744 100 Output Total 1925 2525 Balance 745 1219 100 Weight 48.5 kg 47.5 kg General appearance: PRESENT: no acute distress, well-developed, well-nourished Head exam: PRESENT: atraumatic, normocephalic Eye exam: PRESENT: conjunctiva pink. ABSENT: scleral icterus Mouth exam: PRESENT: moist Respiratory exam: PRESENT: clear to auscultation tobi. ABSENT: rales, rhonchi, wheezes Cardiovascular exam: PRESENT: RRR. ABSENT: diastolic murmur, rubs, systolic murmur GI/Abdominal exam: PRESENT: normal bowel sounds, soft. ABSENT: distended, guarding, mass, organolmegaly, rebound, tenderness Musculoskeletal exam: PRESENT: ambulatory Neurological exam: PRESENT: alert, awake, oriented to person, oriented to place, oriented to time, oriented to situation Psychiatric exam: PRESENT: appropriate affect, normal mood Skin exam: PRESENT: dry, intact, warm Results Laboratory Results: 01/05/20 06:43 01/02/20 18:45 Blood Blood Culture - Final Staphylococcus Epidermidis 01/02/20 01/03/20 01/03/20 17:41 00:39 06:15 Creatine Kinase 739 H 1135 H 1236 H 01/04/20 09:55 Creatine Kinase 653 H Impressions: Head CT 01/02/20 14:11 IMPRESSION: Stable appearance of the brain without developing hydrocephalus. No acute or suspicious abnormality appreciated. Assessment and Plan - Diagnosis (1) Seizure Is this a current diagnosis for this admission?: Yes Plan: Lasted for approximately 29 minutes with a brief 1 to 2-second break per mother who witnessed the seizure at home EMS gave 3 mg of Versed and 2 mg of Ativan in route which terminated the patient seizure EEG Patient follows with his neurologist Dr. Mani Whipple at [facility] in [place] Patient is frequently noncompliant with his Keppra and abuses drugs and alcohol per his mother and his UDS is positive for marijuana and benzos IV Keppra 1000 mg a.m. and 1500 mg p.m. As needed Ativan IV Seizure precautions 01/03/2020 Extensive discussion with the patient regarding stopping his polysubstance abuse, he voiced understanding. Discussed with him that he is very fortunate to have not sustained any apparent anoxic brain injury given he had a seizure lasting approximately 30 minutes according to his mother. Restart oral Keppra at discharge 01/05/2020 Counseled on continuing to take his Keppra even if he decides to continue ab using substances. He voiced understanding and stated he would "try" No further seizures since admission 01/06/2020 Can transition Keppra to oral and DC IV No seizures (2) Aspiration pneumonia Qualifiers: Aspiration pneumonia type: due to gastric secretions Lung location: unspecified part of lung Is this a current diagnosis for this admission?: Yes (3) Rhabdomyolysis Is this a current diagnosis for this admission?: Yes (4) Acute kidney injury Is this a current diagnosis for this admission?: Yes (5) Hyperkalemia Is this a current diagnosis for this admission?: Yes (6) Metabolic acidosis Is this a current diagnosis for this admission?: Yes (7) Depression with suicidal ideation Is this a current diagnosis for this admission?: Yes Plan: On 01/04/2020 patient began telling his nurse that he had suicidal ideations and was depressed. He has no specific plans for suicide. Consulted psychiatry Suicide watcherlin at bedside 01/05/2020 Psychiatry is seen the patient and evaluated him. They would like to follow with him for the next day at least. He will not be discharged today so that he can continue getting psychiatric treatment. Very likely has long-term high risk for committing suicide given his history of brain injury from due to hydrocephalus and [employer] shunt placement. He will need close psychiatric follow-up after he is discharged 01/06/2020 Psychiatry is arranging outpatient follow-up for the patient and is attempting to help his parents establish guardianship given his brain injury leaves him somewhat disabled. He denies any current suicidal ideations (8) Gram-positive bacteremia Is this a current diagnosis for this admission?: Yes Plan: Source likely aspiration pneumonia Cultures pending Vancomycin/cefepime 01/06/2020 Repeat blood cultures are pending Initial blood cultures are growing staph epi and a different GPCC and the other blood culture - Time Time Spent with patient: 15-24 minutes Medications reviewed and adjusted accordingly: Yes Anticipated discharge: Home Within: within 48 hours - Inpatient Certification Based on my medical assessment, after consideration of the patient's comorbidities, presenting symptoms, or acuity I expect that the services needed warrant INPATIENT care.: Yes I certify that my determination is in accordance with my understanding of [facility] 's requirements for reasonable and necessary INPATIENT services [42 CFR 412.3e].: Yes Medical Necessity: Significant Comorbidiites Make Outpatient Treatment Too Risky, Need Close Monitoring Due to Risk of Patient Decompensation, Need for IV Antibiotics, Risk of Complication if Not Cared For in Hospital, Risk of Diagnosis Which Will Require Inpatient Eval/Care/Monitoring
--- NOTE | 2020-01-06 12:19 | XCELERA REPORT ---
[address] [address] Transthoracic Echocardiogram Report Name: CARSON HOU Age: 24 yrs Gender: Male : 1995 Patient Status: Inpatient Patient Location: [facility]^A Study Date: 01/06/2020 08:02 AM Height: 59 in Weight: 104 lb BSA: 1.4 m2 Reason For Study: CHF Ordering Physician: TOM DOUGHERTY Performed By: Adriana Lees Interpretation Summary FINDINGS: LEFT VENTRICLE: LV Systolic function: LVEF is felt to be within normal limits. Best estimate is approximately LVEF is 60 to 65%. LV Diastolic Function: No diastolic dysfunction noted. Wall motion : No definite regional wall motion abnormalities are noted. Left ventricular chamber size : is within normal limit. Left ventricular wall thickness : wnl. RIGHT VENTRICLE: RV systolic function : is felt to be within normal limit. Right Ventricle Size : is within normal limits. LEFT ATRIUM size : is within normal limit. RIGHT ATRIUM size : is within normal limit. INTER ATRIAL SEPTUM : No definite atrial septal defect noted however a small PFO could be missed. AORTIC ROOT : seems to be within normal limits. Ascending aorta is not well visualized. INFERIOR VENA CAVA: was not well visualized. VALVES: MITRAL VALVE : Leaflets are mildly thickened. Mobility seems to be within normal limits. Mitral Regurgitation : Trace mitral regurgitation is noted. Mitral Stenosis: No mitral stenosis noted. Mitral valve prolapse : none noted. AORTIC VALVE: seems to be trileaflet with mild thickening but adequate excursion. Aortic stenosis : No aortic stenosis noted. Aortic regurgitation : No aortic incompetence noted. TRICUSPID VALVE : mobility and structures within normal limit. Tricuspid stenosis : no tricuspid stenosis noted. Tricuspid regurgitation : Trace tricuspid regurgitation noted. Estimated RVSP : upper limit of normal. PULMONARY VALVE : was not well visualized but no significant abnormalities suspected. Pulmonary stenosis : no pulmonary stenosis noted. Pulmonary regurgitation : no significant pulmonary regurgitation noted. MASSES AND THROMBUS : No definite intracardiac thrombus or masses are noted. PERICARDIUM: No pericardial effusion was noted. IMPRESSION : 1. Normal LVEF. 2. Normal chamber sizes noted. No LVH noted. 3. No Diastolic Dysfunction noted. 4. No significant valvular stenosis or regurgitation noted. MMode/2D Measurements & Calculations RVDd: 1.8 cm LVIDd: 3.8 cm FS: 33.3 % Ao root diam: 2.6 cm IVSd: 0.80 cm LVIDs: 2.6 cm EDV(Teich): 63.4 ml LVPWd: 0.80 cm ESV(Teich): 23.7 ml Ao root area: 5.1 cm2 EF(Teich): 62.7 % Doppler Measurements & Calculations MV E max yani: MV dec slope: Ao V2 max: LV V1 max P.4 cm/sec 358.7 cm/sec2 138.7 cm/sec 6.4 mmHg MV A max yani: MV dec time: 0.27 secAo max PG: LV V1 max: 60.7 cm/sec 7.7 mmHg 126.7 cm/sec MV E/A: 1.6 PA V2 max: TR max yani: 125.4 cm/sec 187.4 cm/sec PA max P.3 mmHg TR max P.0 mmHg : TOM DOUGHERTY Shyamal
--- NOTE | 2020-01-06 15:10 | RADIOLOGY REPORT (SQ) ---
EXAM DESCRIPTION: ELBOW RIGHT AP/LAT IMAGES COMPLETED DATE/TIME: 01/06/2020 2:53 pm REASON FOR STUDY: possible previous break COMPARISON: None. NUMBER OF VIEWS: Three views. TECHNIQUE: AP, lateral, and single oblique radiographic images acquired of the right elbow. LIMITATIONS: None. FINDINGS: MINERALIZATION: Normal. BONES: No acute bony abnormality. No suspicious intra osseous lesion. JOINT: Significant cloudy light calcification posterior to the olecranon and distal humerus. No join t effusion. SOFT TISSUES: No soft tissue swelling. No foreign body. OTHER: No other significant finding. IMPRESSION: No evidence of acute bony abnormality. Significant cloudlike calcification about the posterior elbow joint. Differential includes tumoral c alcinosis, synovial osteochondromatosis, among other entities. TECHNICAL DOCUMENTATION: JOB ID: [id number] 2010 [employer]- All Rights Reserved Reading location - IP/workstation name: [email or web address]
[2020-01-06] MEDS: LEVETIRACETAM 1500 MG/NACL-ISO 1,500 MG/100 ML RTUPB IV SCH (18:40)
[2020-01-07] MEDS: VANCOMYCIN HCL 1,000 MG in DEXTROSE 5%-WATER 250 ML IV SCH ×2 (03:20→10:38)
[2020-01-07] MEDS: CEFEPIME HCL 2 GM in DEXTROSE 5%-WATER 50 ML IV SCH (05:38)
[2020-01-07] MEDS: HEPARIN SOD (PORCINE) 5,000 UNIT/ML 1 ML VIAL SUBCUT SCH ×3 (05:47→22:59)
[2020-01-07] MEDS: LEVETIRACETAM 1000 MG/NACL-ISO 1,000 MG/100 ML RTUPB IV SCH (08:16)
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
--- NOTE | 2020-01-07 14:27 | RADIOLOGY REPORT (SQ) ---
EXAM DESCRIPTION: MRI RT UPPER EXTREMITY COMBO IMAGES COMPLETED DATE/TIME: 01/07/2020 1:33 pm REASON FOR STUDY: Suspected osteosarcoma Right Elbow COMPARISON: None. TECHNIQUE: Multiplanar imaging of the right elbow to include T1-weighted, postcontrast T1-weighted, and T2-weighted images. CONTRAST TYPE AND DOSE: 10 mL Prohance. RENAL FUNCTION: Not indicated. ACR Type II contrast agent associated with few, if any, unconfounded cases of NSF LIMITATIONS: None. FINDINGS: BONE MARROW: Normal. SOFT TISSUES: There is architectural distortion with calcifications in the triceps muscle just above the elbow. Minimal enhancement. When correlated with plain film, appearance is typical of myositis ossificans. OTHER: No other significant finding. IMPRESSION: Myositis ossificans. TECHNICAL DOCUMENTATION: JOB ID: [id number] [employer]- All Rights Reserved Reading location - IP/workstation name: [email or web address]
[2020-01-07] MEDS: LEVETIRACETAM 1500 MG/NACL-ISO 1,500 MG/100 ML RTUPB IV SCH (17:06)
[2020-01-07] MEDS: ACETAMINOPHEN 325 MG TABLET PO PRN (20:05)
[2020-01-08] MEDS: ACETAMINOPHEN 325 MG TABLET PO PRN (04:18)
[2020-01-08] MEDS: HEPARIN SOD (PORCINE) 5,000 UNIT/ML 1 ML VIAL SUBCUT SCH ×2 (05:50→15:02)
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
[2020-01-08] MEDS: LEVETIRACETAM 1000 MG/NACL-ISO 1,000 MG/100 ML RTUPB IV SCH (08:22)
--- NOTE | 2020-01-08 14:28 | PSYCHOLOGICAL NOTE ---
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 Upon discharge planning on 01/04/2020 patient expressed suicidal ideation. Conducted [id number] evaluation with patient and obtained collateral from patient's father via telephone on (01/04/2020). On 01/05/2020 did receive an email as requested from mother with the psychological testing paperwork. Dr. David and this clinician reviewed that paperwork. Please reference psychological note from 01/05/2020 regarding specific information from that testing. Today (01/08/2020) another psychiatric consult was ordered due to suicidal ideation while getting ready for discharge. Spoke to patient frankly about his seizure disorder, shunts he has had as a result and damage they can cause to the brain known as traumatic brain injury. Discussed how this traumatic brain injury affects his mood lability, impulse control and memory. Patient stated "you mean like yesterday when I threw the tray and then just started crying?" He further stated that is not like him and he feels bad. Patient initiated conversation about his friend that was shot and killed. He expressed appropriate emotion as evidenced by crying. He was encouraged to let the emotion out and provided a safe place for such. Used silence to allow for the emotional release. Allowed patient to sing a rap song he wrote about his friend, one in which patient identified "I think the words upset me more," he was encouraged to feel that emotion and consider writing another song that would make him smile such as specific memories where he and friend had fun/laughed. Patient then sang another song that he started on, said he was not done and he was again encouraged to consider finishing the song with fond memories. It was during talking about his friend that patient expressed suicidal ideation, missing his friend and just wanting to be with him. Utilized brief solution focused strategies when asked patient what his friend would want for him and encouraged brainstorming. Patient agreed his friend would want him to live his fullest life. Challenged and confronted patient regarding his cannabis use. Provided psychoeducation on how it is dangerous due to his seizures. Pointed out that though he previously said marijuana is the only thing that helps him he often comes home late or not at all, misses doses of his Keppra, and then remains in his room secluded from his family/explained how isolation can be depressing. Patient mentioned "I think I am addicted," was informed about psychological versus physiological addiction, he commented "yeah I do understand like in my head and how I don't shake or anything," he was praised for his understanding and asked about how to get through the addiction. Discussed and psychoeducated how therapy can aid in changing thoughts about something. Provided example of how his current thought of it's the only thing that makes him happy keeps him using when the other things like isolating from parents/family/not taking prescribed medication as directed could be affecting his mood. Patient asking about the addiction and how to get through that indicates hope and a desire to change (all future/forward thinking). Informed him of plan of care to discharge, parents to have control over medications and administration (patient said they already are), parents to lock up all medications in the home, linking to therapy and [facility] for professional supports. Patient was alert and oriented to self, person, place, time and situation. Mood was mainly euthymic with congruent affect but he did endorse depression with tearful affect when he talked about the of his friend. He talked about SI/HI, mentioned things in the past like previous OD attempt. Patient did not appear to be responding to internal stimuli as evidenced by fair eye contact and answering questions appropriately when addressed. Conversational speech was within normal limits for rate, tone and prosody. Thought processes were circumferential. Intellectual abilities are estimated to be average though psychological testing from October 2019 indicates he is below average. Insight, judgment and impulse control were fair as evidenced by being engaged and discussing thoughts/feelings. At 1428 called and spoke to mother listed as Next of Kin Jo Ann Person to discuss plan of care. She identified [facility] (Shantel Do) had been in contact already, parents were informed of guardianship process/forms needed/cost/contact center associate of courts and DSS signed patient up for a program that mother had done already but patient has to do his part. She confirmed they have already locked up all the medications, patient's doses are put out for him in the same place and how he often comes home late or doesn't come home. She understood when he is home lots of reminders may be needed and with this may come increased frustration and behaviors from patient. Mother denied any firearms being in the home. She stated patient has not made threats or used things like kitchen knives or scissors but they will put them up and be mindful. She asked that when being discharged if medical could tell her discharge plan since "he doesn't process well and the information that gets to us as parents from him may not be accurate." She was informed would coordinate with [facility] for therapy appointment and [facility] regarding any documentation they may need for guardianship or who to provide those documents to. 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 There is concern for neurocognitive impairment which is organic and felt to be exacerbated by shunt placements causing significant functioning issues in various domains (memory, impulse control, conversational speech, processing, emotional lability, reasoning, judgment) as specified in the psychological testing. He had Psychological Testing Completed October [address] Elio milan. Parents were able to get this paperwork to the [facility] Behavioral Health team and it was reviewed extensively by Dr. David. [facility] obtained verbal consent from father to assist with guardianship (Dr. David to complete Affidavit, made contact with [facility] who will assign [facility] for Community Outreach) and link to a therapy referral (Carlos Santana at [facility]) provided by Dr. Elio Moss. Completed The referral form and will provide [facility] Psychological notes for care coordination/continuity of care since Counts include 234 beds at the [facility] initiated the referral. Appointment is scheduled for 01/11/2020 at 1000. Discussed/reiterated with parents the need to be in control of patient's medications and administration, all medications in the home to be locked up and unavailable to patient, access to any other lethal weapons (firearms, knives, scissors) limiting means and access since chronic history of suicidal ideation. Patient provided with the outpatient MH resource sheet which highlighted [facility] and documented [facility] with appointment date and time. Consulted with Dr. David regarding the management and care of patient. Attending Hospitalist made aware of plan of care. [facility] Behavioral Health Med Asst/Women'S Soccer Coach coordinated with [facility] for individual therapy, [place] and the Steward/Stewardess [employer] Class of Courts and provided patient's mother therapy appointment contact information/date and time of appointment and [facility] contact number. Mother will be emailed with appointment information, [facility] number and the Affidavit for Guardianship once Dr. David completed the Affidavit.
[2020-01-08 17:04] VITALS: BP 138/79
--- NOTE | 2020-01-09 11:30 | PDOC DISCHARGE SUMMARY ---
Impression - Admit/DC Date/PCP Admission Date/Primary Care Provider: 01/02/20 18:16 CHRISTY THAPA MD Discharge Date: 01/08/20 - Discharge Diagnosis (1) Acute kidney injury Is this a current diagnosis for this admission?: Yes (2) Aspiration pneumonia Is this a current diagnosis for this admission?: Yes (3) Contamination of blood culture Is this a current diagnosis for this admission?: Yes (4) Depression with suicidal ideation Is this a current diagnosis for this admission?: Yes (5) Hyperkalemia Is this a current diagnosis for this admission?: Yes (6) Metabolic acidosis Is this a current diagnosis for this admission?: Yes (7) Myositis ossificans Is this a current diagnosis for this admission?: Yes (8) Rhabdomyolysis Is this a current diagnosis for this admission?: Yes (9) Seizure Is this a current diagnosis for this admission?: Yes - Additional Information Resuscitation Status: Full Code Discharge Diet: Regular Discharge Activity: Activity As Tolerated, Balance Activity w/Rest Referrals: CHRISTY THAPA MD [Primary Care Provider] - Follow up as needed (Someone will call you with appointment time and date Saturday.) CHEVY GUIDO MD [ACTIVE STAFF] - (someone will call you with appointment date and time Saturday.) Home Medications: Levetiracetam [Keppra Xr 500 mg Tab.sr] 1,000 mg PO DAILY 08/20/19 Levetiracetam [Keppra Xr 500 mg Tab.sr] 1,500 mg PO QHS 08/20/19 Acetaminophen [Tylenol 325 mg Tablet] 650 mg PO Q4HP PRN tablet 01/08/20 History of Present Illiness History of Present Illness: Per H&P by Dr. English: CARSON HOU is a 24 year old male (significant for seizure disorder, medication noncompliance, history of hydrocephalus with OXIDE FURNACE TENDER shunt since revised in 2006, tobacco abuse, alcohol abuse, polysubstance abuse who presents with seizure lasting at least 29 minutes per his mother. She states there is only a brief break of a few seconds before he began seizing again in the middle of this period of time. She states patient frequently stops taking his medication because it is not a priority to him stating it does not have anything to do with side effects to her knowledge. She also states the patient likes to drink and green party heavily but he is not a daily drinker. She states he also uses marijuana and some other recreational drugs but she does not believe he uses any IV drugs. Patient is typically on Keppra 1000 mg in the morning and 1500 mg at night confirmed by his mother. On admission, patient has elevated creatinine and potassium consistent with likely rhabdomyolysis. CK and lactate not ordered prior to admission but I have not ordered these. Very likely will be quite high. IV fluids started and patient loaded with Keppra IV. Lung exam concerning for possible aspiration pneumonitis/pneumonia. Chest x- ray has now been ordered after admission as well. Will start on empiric IV cefepime. Sent to [facility] with seizure precautions. Hospital Course Hospital Course: (1) Seizure Lasted for approximately 29 minutes with a brief 1 to 2-second break per mother who witnessed the seizure at home EMS gave 3 mg of Versed and 2 mg of Ativan in route which terminated the patient seizure EEG Patient follows with his neurologist Dr. Mani Whipple at [facility] neurology in [place] Patient is frequently noncompliant with his Keppra and abuses drugs and alcohol per his mother and his UDS is positive for marijuana and benzos IV Keppra 1000 mg a.m. and 1500 mg p.m.; transitioned to p.o. Keppra at discharge. As needed Ativan IV Seizure precautions 01/03/2020 Extensive discussion with the patient regarding stopping his polysubstance abuse, he voiced understanding. Discussed with him that he is very fortunate to have not sustained any apparent anoxic brain injury given he had a seizure lasting approximately 30 minutes according to his mother. Restart oral Keppra at discharge 01/05/2020 Counseled on continuing to take his Keppra even if he decides to continue abusing substances. He voiced understanding and stated he would "try" No further seizures since admission 01/06/2020 Can transition Keppra to oral and DC IV No seizures (2) Aspiration pneumonia Completed full course of antibiotic therapy. Now maintaining oxygen saturations while ambulating on room air. asymptomatic. (3) Rhabdomyolysis Secondary to seizure activity. Resolved with IV fluids. (4) Acute kidney injury Secondary to seizure activity/rhabdomyolysis. Resolved with IV fluids. (5) Hyperkalemia Resolved. (6) Metabolic acidosis Resolved. Likely secondary to seizure activity, rhabdomyolysis, and TIBURCIO. (7) Depression with suicidal ideation On 01/04/2020 patient began telling his nurse that he had suicidal ideations and was depressed. He has no specific plans for suicide. Consulted psychiatry Suicide watch, erlin at bedside 01/05/2020 Psychiatry is seen the patient and evaluated him. They would like to follow with him for the next day at least. He will not be discharged today so that he can continue getting psychiatric treatment. Very likely has long-term high risk for committing suicide given his history of brain injury from due to hydrocephalus and OXIDE FURNACE TENDER shunt placement. He will need close psychiatric follow-up after he is discharged 01/06/2020 Psychiatry is arranging outpatient follow-up for the patient and is attempting to help his parents establish guardianship given his brain injury leaves him somewhat disabled. He denies any current suicidal ideations 01/08/2020 On day of discharge, patient became acutely agitated after seeing the orthopedic provider regarding his elbow pain. Per nursing, he threw his meal tray into the hallway and may need vague suicidal statements. Mental health services had previously cleared the patient from IVC status and approved him to discharge to home with an extensive follow-up plan. Contacted mental health to confirm that they remain comfortable with his dischar ge today as he was now medically clear. Kceia ([facility]) did a [id number] meeting with the patient on day of discharge. He remains clear from the psychiatric perspective for discharge to home. Please refer to mental health services note dated 01/08/2020 for detailed psychiatric follow-up plan. (8) Gram-positive bacteremia Contaminant. (9) Myositis ossificans Patient complained of tenderness to his right elbow. His bony-like mass was palpable. MRI revealed myositis ossificans. Orthopedics was consulted; recommend NSAIDs for pain management and follow-up with Dr. Guido Physical Exam Vital Signs: Temp Pulse Resp BP Pulse Ox 98.3 F 105 H 16 138/79 H 97 01/08/20 16:47 01/08/20 16:47 01/08/20 16:47 01/08/20 16:47 01/08/20 16:47 Intake & Output 01/08/20 01/09/20 01/10/20 06:59 06:59 06:59 Intake Total 1808 342 Output Total 0 Balance 1808 342 Weight 48.9 kg General appearance: PRESENT: no acute distress, cooperative, well-developed, well-nourished Head exam: PRESENT: atraumatic, normocephalic Eye exam: PRESENT: conjunctiva pink, EOMI, PERRLA. ABSENT: scleral icterus Ear exam: PRESENT: normal external ear exam Mouth exam: PRESENT: moist, tongue midline Respiratory exam: PRESENT: clear to auscultation tobi, symmetrical, unlabored. ABSENT: rales, rhonchi, wheezes Cardiovascular exam: PRESENT: RRR. ABSENT: diastolic murmur, rubs, systolic murmur Vascular exam: PRESENT: normal capillary refill Extremities exam: PRESENT: full ROM, tenderness - Palpable right posterior elbow bony mass. ABSENT: calf tenderness, clubbing, pedal edema Musculoskeletal exam: PRESENT: ambulatory Neurological exam: PRESENT: alert, awake, oriented to person, oriented to place, oriented to time, oriented to situation, CN II-XII grossly intact. ABSENT: motor sensory deficit Psychiatric exam: PRESENT: appropriate affect, normal mood, suicidal ideation - Patient made additional statements on day of discharge; this was discussed with mental health services. They again met with the patient; statements are chronic in nature. Remains cleared for discharge from psychiatric perspective.. ABSENT: homicidal ideation Skin exam: PRESENT: dry, intact, warm. ABSENT: cyanosis, rash Results Laboratory Results: WBC 7.4 10^3/uL (4.0-10.5) 01/05/20 06:43 RBC 4.37 10^6/uL (4.35-5.55) 01/05/20 06:43 Hgb 13.8 g/dL (13.5-17.0) 01/05/20 06:43 Hct 40.2 % (37.9-51.0) 01/05/20 06:43 MCV 92 fl (80-97) 01/05/20 06:43 MCH 31.7 pg (27.0-33.4) 01/05/20 06:43 MCHC 34.4 g/dL (32.0-36.0) 01/05/20 06:43 RDW 12.5 % (11.5-14.0) 01/05/20 06:43 Plt Count 298 10^3/uL (150-450) 01/05/20 06:43 Lymph % (Auto) 29.6 % (13-45) 01/05/20 06:43 [place] % (Auto) 11.6 % (3-13) 01/05/20 06:43 Eos % (Auto) 4.3 % (0-6) 01/05/20 06:43 Baso % (Auto) 1.0 % (0-2) 01/05/20 06:43 Absolute Neuts (auto) 3.9 10^3/uL (1.7-8.2) 01/05/20 06:43 Absolute Lymphs (auto) 2.2 10^3/uL (0.5-4.7) 01/05/20 06:43 Absolute Monos (auto) 0.9 10^3/uL (0.1-1.4) 01/05/20 06:43 Absolute Eos (auto) 0.3 10^3/uL (0.0-0.6) 01/05/20 06:43 Absolute Basos (auto) 0.1 10^3/uL (0.0-0.2) 01/05/20 06:43 Total Counted 100 01/02/20 14:09 Seg Neutrophils % 53.5 % (42-78) 01/05/20 06:43 Seg Neuts % (Manual) 50 % (42-78) 01/02/20 14:09 Lymphocytes % (Manual) 42 % (13-45) 01/02/20 14:09 Monocytes % (Manual) 5 % (3-13) 01/02/20 14:09 Eosinophils % (Manual) 2 % (0-6) 01/02/20 14:09 Basophils % (Manual) 0 % (0-2) 01/02/20 14:09 Metamyelocytes % 1 % (0-1) 01/02/20 14:09 Abs Neuts (Manual) 6.4 10^3/uL (1.7-8.2) 01/02/20 14:09 Abs Lymphs (Manual) 5.3 10^3/uL (0.5-4.7) H 01/02/20 14:09 Abs Monocytes (Manual) 0.6 10^3/uL (0.1-1.4) 01/02/20 14:09 Absolute Eos (Manual) 0.3 10^3/uL (0.0-0.6) 01/02/20 14:09 Abs Basophils (Manual) 0.0 10^3/uL (0.0-0.2) 01/02/20 14:09 Platelet Estimate Cancelled 01/03/20 06:15 Clumped Platelets PRESENT 01/02/20 14:09 Platelet Comment ADEQUATE 01/02/20 14:09 Macrocytosis SLIGHT 01/02/20 14:09 Carbonic Acid 1.21 mmol/L (1.05-1.35) 01/02/20 18:36 HCO3/H2CO3 Ratio 19:1 01/02/20 18:36 ABG pH 7.37 (7.35-7.45) 01/02/20 18:36 ABG pCO2 40.3 mmHg (35-45) 01/02/20 18:36 ABG pO2 72.4 mmHg (80-100) L 01/02/20 18:36 ABG HCO3 23.0 mmol/L (20-24) 01/02/20 18:36 ABG Total CO2 24.2 mmol/L (23-27) 01/02/20 18:36 ABG O2 Saturation 94.3 % (94-98) 01/02/20 18:36 ABG Base Excess -2.0 mmol/L 01/02/20 18:36 FiO2 ROOM AIR 01/02/20 18:36 Sodium 139.0 mmol/L (137-145) 01/06/20 09:44 Potassium 4.4 mmol/L (3.6-5.0) 01/06/20 09:44 Chloride 101 mmol/L (98-107) 01/06/20 09:44 Carbon Dioxide 29 mmol/L (22-30) 01/06/20 09:44 Anion Gap 9 (5-19) 01/06/20 09:44 BUN 9 mg/dL (7-20) 01/06/20 09:44 Creatinine 0.82 mg/dL (0.52-1.25) 01/06/20 14:31 Est GFR ( Amer) > 60 (>60) 01/06/20 14:31 Est GFR (MDRD) Non-Af > 60 (>60) 01/06/20 14:31 Glucose 99 mg/dL (75-110) 01/06/20 09:44 POC Glucose 77 mg/dL (70-110) 01/03/20 01:05 Lactic Acid 1.5 mmol/L (0.7-2.1) 01/03/20 00:39 Calcium 10.0 mg/dL (8.4-10.2) 01/06/20 09:44 Phosphorus 5.8 mg/dL (2.5-4.5) H 01/03/20 06:15 Magnesium 2.0 mg/dL (1.6-2.3) 01/03/20 06:15 Total Bilirubin 0.3 mg/dL (0.2-1.3) 01/02/20 14:09 Direct Bilirubin 0.0 mg/dL (0.0-0.4) 01/02/20 14:09 Neonat Total Bilirubin Not Reportable 01/02/20 14:09 Neonat Direct Bilirubin Not Reportable 01/02/20 14:09 Neonat Indirect Bili Not Reportable 01/02/20 14:09 AST 46 U/L (17-59) 01/02/20 14:09 ALT 28 U/L (<50) 01/02/20 14:09 Alkaline Phosphatase 61 U/L (38-126) 01/02/20 14:09 Creatine Kinase 653 U/L (55-170) H 01/04/20 09:55 Total Protein 8.3 g/dL (6.3-8.2) H 01/02/20 14:09 Albumin 4.7 g/dL (3.5-5.0) 01/02/20 14:09 TSH 0.72 uIU/mL (0.47-4.68) 01/03/20 06:15 Urine Color YELLOW 01/02/20 14:17 Urine Appearance SLIGHTLY-CLOUDY 01/02/20 14:17 Urine pH 6.0 (5.0-9.0) 01/02/20 14:17 Ur Specific [place] 1.010 01/02/20 14:17 Urine Protein >=500 mg/dL (NEGATIVE) H 01/02/20 14:17 Urine Glucose (UA) >=500 mg/dL (NEGATIVE) H 01/02/20 14:17 Urine Ketones NEGATIVE mg/dL (NEGATIVE) 01/02/20 14:17 Urine Blood MODERATE (NEGATIVE) H 01/02/20 14:17 Urine Nitrite NEGATIVE (NEGATIVE) 01/02/20 14:17 Urine Bilirubin NEGATIVE (NEGATIVE) 01/02/20 14:17 Urine Urobilinogen NEGATIVE mg/dL (<2.0) 01/02/20 14:17 Ur Leukocyte Esterase NEGATIVE (NEGATIVE) 01/02/20 14:17 Urine WBC (Auto) 5 /HPF 01/02/20 14:17 Urine RBC (Auto) 4 /HPF 01/02/20 14:17 Squamous Epi Cells Auto <1 /HPF 01/02/20 14:17 Urine Mucus (Auto) RARE /LPF 01/02/20 14:17 Urine Ascorbic Acid NEGATIVE (NEGATIVE) 01/02/20 14:17 Time Trough Drawn 1431 01/06/20 14:31 Vancomycin Trough 5.0 ug/mL (5.0-20.0) 01/06/20 14:31 Urine Opiates Screen NEGATIVE 01/02/20 14:17 Urine Methadone Screen NEGATIVE 01/02/20 14:17 Ur Barbiturates Screen NEGATIVE 01/02/20 14:17 Valproic Acid < 10.0 ug/mL (50.0-120.0) L 01/02/20 14:09 Levetiracetam 40.6 ug/mL (10.0-40.0) H 01/02/20 14:50 Ur Phencyclidine Scrn NEGATIVE 01/02/20 14:17 Ur Amphetamines Screen NEGATIVE 01/02/20 14:17 U Benzodiazepines Scrn UNCONFIRMED POSITIVE 01/02/20 14:17 Urine Cocaine Screen NEGATIVE 01/02/20 14:17 U Marijuana (THC) Screen UNCONFIRMED POSITIVE 01/02/20 14:17 Serum Alcohol < 10 mg/dL (NONE DETECTED) 01/02/20 14:09 Slides for Path Review Cancelled 01/03/20 06:15 Impressions: Head CT 01/02/20 14:11 IMPRESSION: Stable appearance of the brain without developing hydrocephalus. No acute or suspicious abnormality appreciated. Elbow X-Ray 01/06/20 00:00 IMPRESSION: No evidence of acute bony abnormality. Significant cloudlike calcification about the posterior elbow joint. Differential includes tumoral calcinosis, synovial osteochondromatosis, among other entities. Upper Extremity MRI 01/07/20 00:00 IMPRESSION: Myositis ossificans. Plan Plan of Treatment: Patient is discharged to home into the care of family members. He is advised to follow-up with primary care provider within 1 week. A detailed mental health follow-up plan has been established by the mental health services; this is been reviewed in detail between Kecia HUFFMAN) and the patient's parents. Take medication as prescribed. Eat a heart healthy diet. Do NOT smoke. Do not use illicit drugs. Return to emergency department as needed for concerning symptoms. Time Spent: Greater than 30 Minutes Stroke Is this a Stroke Patient?: No Acute Heart Failure - Is this a Heart Failure Patient?: No
== END 2020-01-08 17:00 | disposition home or self-care (01) | DRG 100 ==
LOC: ER 13:56 → EH 18:16 → 3S 19:50
PROVIDERS: ADMIT Internal Medicine; ATTEND Registered Nurse
DX: G40.909 Epilepsy, unspecified, not intractable, without status epilepticus (principal); J69.0 Pneumonitis due to inhalation of food and vomit; M62.82 Rhabdomyolysis; N17.9 Acute kidney failure, unspecified; E87.2 Acidosis; R45.851 Suicidal ideations; R79.89 Other specified abnormal findings of blood chemistry; F19.10 Other psychoactive substance abuse, uncomplicated; M61.5 Other ossification of muscle; F10.10 Alcohol abuse, uncomplicated; E87.5 Hyperkalemia; F32.9 Major depressive disorder, single episode, unspecified; F17.210 Nicotine dependence, cigarettes, uncomplicated; Q03.9 Congenital hydrocephalus, unspecified; Z98.2 Presence of cerebrospinal fluid drainage device
CPT/HCPCS: 36415; 70450; 71046; 80048; 80053; 80164; 80177; 80202; 80307; 81001; 82550; 82565; 82803; 82962; 83605; 83735; 84100; 84443; 85025; 87040; 87077; 87186; 93306; 96361; 96374; 99285; A9576; J0692; J1644; J1953; J2060; J3370; J3490; J7030; J7060; J7120

== ENCOUNTER 2020-01-08 23:39 | Emergency (ER) | payer OTHER ==
[2020-01-09 02:33] LABS: HEMATOCRIT 44.3 % (37.9-51.0); HEMOGLOBIN 15.3 g/dL (13.5-17.0); MEAN CORPUSCULAR HEMOGLOBIN 32.1 pg (27.0-33.4); MEAN CORPUSCULAR HGB CONC 34.6 g/dL (32.0-36.0); MEAN CORPUSCULAR VOLUME 93 fl (80-97); PLATELET COUNT 303 10^3/uL (150-450); RED BLOOD COUNT 4.78 10^6/uL (4.35-5.55); RED CELL DISTRIBUTION WIDTH 12.9 % (11.5-14.0); WHITE BLOOD COUNT 6.4 10^3/uL (4.0-10.5)
[2020-01-09 02:35] LABS: ALBUMIN 5.1 g/dL (3.5-5.0); ALKALINE PHOSPHATASE 61 U/L (38-126); ANION GAP 11 (5-19); ASPARTATE AMINO TRANSFERASE 155 U/L (17-59); BILIRUBIN,DIRECT 0.1 mg/dL (0.0-0.4); BILIRUBIN,TOTAL 0.6 mg/dL (0.2-1.3); BLOOD UREA NITROGEN 15 mg/dL (7-20); CALCIUM 10.6 mg/dL (8.4-10.2); CARBON DIOXIDE 34 mmol/L (22-30); CHLORIDE 96 mmol/L (98-107); GLUCOSE 85 mg/dL (75-110); POTASSIUM 3.9 mmol/L (3.6-5.0); TOTAL PROTEIN 9.5 g/dL (6.3-8.2)
[2020-01-09 02:38] LABS: ACETAMINOPHEN < 10 ug/mL (10-30); ALCOHOL < 10 mg/dL (NONE DETECTED); SALICYLATE < 1.0 mg/dL (2.0-20.0)
[2020-01-09 02:44] LABS: APPEARANCE,URINE CLEAR; BILIRUBIN,URINE NEGATIVE (NEGATIVE); COLOR,URINE YELLOW; GLUCOSE, URINE NEGATIVE (NEGATIVE); KETONES,URINE NEGATIVE (NEGATIVE); LEUKOCYTE ESTERASE,URINE NEGATIVE (NEGATIVE); NITRITE,URINE NEGATIVE (NEGATIVE); PROTEIN,URINE 100 mg/dL (NEGATIVE); URINE SPECIFIC GRAVITY 1.014; UROBILINOGEN,URINE NEGATIVE mg/dL (<2.0)
[2020-01-09 02:57] LABS: ABSOLUTE LYMPHOCYTES# (MANUAL) 1.9 10^3/uL (0.5-4.7); ABSOLUTE MONOCYTES # (MANUAL) 0.5 10^3/uL (0.1-1.4); BAND NEUTROPHILS % (MANUAL) 2 % (3-5); BASOPHILS % (MANUAL) 0 % (0-2); EOSINOPHILS % (MANUAL) 0 % (0-6); LYMPHOCYTES % (MANUAL) 29 % (13-45); MONOCYTES % (MANUAL) 8 % (3-13); RBC MORPHOLOGY COMMENT NORMO-CYTIC/CHROMIC; SEGMENTED NEUTROPHILS % (MAN) 61 % (42-78); TOTAL CELLS COUNTED 100
[2020-01-09 02:58] LABS: PLATELET COMMENT ADEQUATE
[2020-01-09 03:27] LABS: URINE AMPHETAMINES SCREEN NEGATIVE; URINE BARBITURATES SCREEN NEGATIVE; URINE BENZODIAZEPINES SCREEN NEGATIVE; URINE COCAINE SCREEN NEGATIVE; URINE METHADONE SCREEN NEGATIVE; URINE PHENCYCLIDINE SCREEN NEGATIVE
[2020-01-09 03:31] LABS: URINE MARIJUANA (THC) SCREEN UNCONFIRMED POSITIVE
--- NOTE | 2020-01-09 03:44 | ER Document Report ---
ED Psych Disorder / Suicide - General Mode of Arrival: Medic Information source: Patient TRAVEL OUTSIDE OF THE [place] IN LAST 30 DAYS: No - HPI Patient complains to provider of: Suicidal plan Onset: This evening Quality of pain: No pain Suicide Risk Factors: Chronic illness, Depressed, Male, Substance abuse Situational problems related to: Parent Suicide Attempt Method: Overdose Injury to: Wrist Normal mood: No Associated symptoms: Depressed Similar symptoms previously: Yes Recently seen / treated by doctor: Yes <KEYANNA DOTSON - Last Filed: 01/09/20 08:10> <LUIS ALBERTODEVORAH M - Last Filed: 01/09/20 11:19> <LAUREN ZUNIGA - Last Filed: 01/09/20 17:39> - General Chief Complaint: Psych Problem Stated Complaint: PSYCH EVAL Time Seen by Provider: 01/09/20 00:03 Primary Care Provider: CHRISTY THAPA MD [Primary Care Provider] - Follow up as needed Notes: Patient presents from home with suicidal ideation. Patient states he was at home when he started crying and punching in his jeffrey. Patient states that he was at home he was going to try to take his pills and overdose except that his mother had taken all of his medications and put away. Patient states that he isolates in his home. Patient states that his father did not feel safe around him house tonight. Patient states that he is addicted to marijuana and that this helps him function. Patient states that he has attempted overdoses in the past. Patient has a history of anxiety depression and seizure disorder. (KEYANNA DOTSON) - Related Data Allergies/Adverse Reactions: No Known Allergies Allergy (Verified 02/03/17 22:50) Past Medical History - General Information source: Patient - Social History Smoking Status: Never Smoker Frequency of alcohol use: None Drug Abuse: Marijuana Occupation: None Lives with: Family Family History: Reviewed & Not Pertinent Patient has homicidal ideation: No Neurological Medical History: Reports: Hx Seizures - History of hydrocephalus Renal/ Medical History: Denies: Hx Peritoneal Dialysis Psychiatric Medical History: Reports: Hx Anxiety, Hx Depression Past Surgical History: Reports: Hx Genitourinary Surgery - Abcess behind bladder 2006, Hx Neurologic Surgery - [employer] shunt, revised in 2006 - Immunizations Immunizations up to date: Yes Hx Diphtheria, Pertussis, Tetanus Vaccination: Yes <KEYANNA DOTSON - Last Filed: 01/09/20 08:10> Review of Systems - Review of Systems Constitutional: No symptoms reported. denies: Fever EENT: No symptoms reported Cardiovascular: No symptoms reported Respiratory: No symptoms reported. denies: Cough, Short of breath Gastrointestinal: No symptoms reported Genitourinary: No symptoms reported Male Genitourinary: No symptoms reported Musculoskeletal: No symptoms reported. denies: Back pain Skin: No symptoms reported Hematologic/Lymphatic: No symptoms reported Neurological/Psychological: Depression, Suicidal ideation <KEYANNA DOTSON - Last Filed: 01/09/20 08:10> Physical Exam - General General appearance: Appears well, Alert In distress: None - HEENT Head: Normocephalic, Atraumatic Eyes: Normal Conjunctiva: Normal Nasal: Normal Mouth/Lips: Normal Mucous membranes: Normal Neck: Normal - Respiratory Respiratory status: No respiratory distress Chest status: Nontender Breath sounds: Normal. No: Rales, Rhonchi, Stridor, Wheezing Chest palpation: Normal - Cardiovascular Rhythm: Regular Heart sounds: S1 appreciated, S2 appreciated - Abdominal Inspection: Normal Tenderness: Nontender - Back Back: Normal - Neurological Neuro grossly intact: Yes Cognition: Normal [place] Coma Scale Eye Opening: Spontaneous Kelli Coma Scale Verbal: Oriented [place] Coma Scale Motor: Obeys Commands [place] Coma Scale Total: 15 - Psychological Associated symptoms: Normal affect, Normal mood - Skin Skin Temperature: Warm Skin Moisture: Dry Skin Color: Normal <KEYANNA DOTSON - Last Filed: 01/09/20 08:10> - Vital signs Vitals: Temp Pulse Resp BP Pulse Ox 98.2 F 97 18 128/91 H 98 01/08/20 23:43 01/08/20 23:43 01/08/20 23:43 01/08/20 23:43 01/08/20 23:43 Course - Laboratory Result Diagrams: 01/09/20 01:33 01/09/20 01:33 <KEYANNA DOTSON - Last Filed: 01/09/20 08:10> - Laboratory Result Diagrams: 01/09/20 01:33 01/09/20 01:33 <LUIS ALBERTODEVORAH [place] - Last Filed: 01/09/20 11:19> - Laboratory Result Diagrams: 01/09/20 01:33 01/09/20 01:33 <LAUREN ZUNIGA - Last Filed: 01/09/20 17:39> - Re-evaluation Re-evalutation: 01/09/20 03:43 Patient presents with suicidal ideation. Patient with mild elevation in AST and ALT, no elevation in alkaline phosphatase, no elevation in bilirubin. Will advi se outpatient follow-up with primary doctor for recheck of these laboratory tests. Patient otherwise medically clear for transfer or discharge pending mental health evaluation tomorrow. 01/09/20 06:43 Patient became emotional stating that he is missing his friend and dog. Patient kicked a bedside table and started yelling. Medications ordered. 01/09/20 08:10 Report and handoff given to Devorah anne UNIT CONTROL WORKER (KEYANNA DOTSON) - Vital Signs Vital signs: Temp Pulse Resp BP Pulse Ox 97.5 F 88 19 125/67 97 01/09/20 12:24 01/09/20 12:24 01/09/20 12:24 01/09/20 12:24 01/09/20 12:24 - Laboratory Laboratory results interpreted by me: 01/09/20 01/09/20 01/09/20 01:33 01:33 01:33 Band Neutrophils % 2 L Chloride 96 L Carbon Dioxide 34 H Calcium 10.6 H AST 155 H ALT 203 H Total Protein 9.5 H Albumin 5.1 H Urine Protein 100 H Salicylates < 1.0 L Acetaminophen < 10 L 01/09/20 04:58 Labs- Entire Visit 01/09/20 01/09/20 01/09/20 01:33 01:33 01:33 WBC 6.4 RBC 4.78 Hgb 15.3 Hct 44.3 MCV 93 MCH 32.1 MCHC 34.6 RDW 12.9 Plt Count 303 Lymph % (Auto) Not Reportable [place] % (Auto) Not Reportable Eos % (Auto) Not Reportable Baso % (Auto) Not Reportable Absolute Neuts (auto) Not Reportable Absolute Lymphs (auto) Not Reportable Absolute Monos (auto) Not Reportable Absolute Eos (auto) Not Reportable Absolute Basos (auto) Not Reportable Total Counted 100 Seg Neutrophils % Not Reportable Seg Neuts % (Manual) 61 Band Neutrophils % 2 L Lymphocytes % (Manual) 29 Monocytes % (Manual) 8 Eosinophils % (Manual) 0 Basophils % (Manual) 0 Abs Neuts (Manual) 4.0 Abs Lymphs (Manual) 1.9 Abs Monocytes (Manual) 0.5 Absolute Eos (Manual) 0.0 Abs Basophils (Manual) 0.0 Platelet Comment ADEQUATE RBC Morph Comment NORMO-CYTIC/CHROMIC Sodium 141.3 Potassium 3.9 Chloride 96 L Carbon Dioxide 34 H Anion Gap 11 BUN 15 Creatinine 0.88 Est GFR ( Amer) > 60 Est GFR (MDRD) Non-Af > 60 Glucose 85 Calcium 10.6 H Total Bilirubin 0.6 Direct Bilirubin 0.1 Neonat Total Bilirubin Not Reportable Neonat Direct Bilirubin Not Reportable Neonat Indirect Bili Not Reportable AST 155 H ALT 203 H Alkaline Phosphatase 61 Total Protein 9.5 H Albumin 5.1 H Urine Color YELLOW Urine Appearance CLEAR Urine pH 7.0 Ur Specific [place] 1.014 Urine Protein 100 H Urine Glucose (UA) NEGATIVE Urine Ketones NEGATIVE Urine Blood NEGATIVE Urine Nitrite NEGATIVE Urine Bilirubin NEGATIVE Urine Urobilinogen NEGATIVE Ur Leukocyte Esterase NEGATIVE Urine WBC (Auto) 1 Urine RBC (Auto) 0 U Hyaline Cast (Auto) 3 Urine Mucus (Auto) RARE Urine Ascorbic Acid NEGATIVE Salicylates < 1.0 L Urine Opiates Screen Urine Methadone Screen Acetaminophen < 10 L Ur Barbiturates Screen Ur Phencyclidine Scrn Ur Amphetamines Screen U Benzodiazepines Scrn Urine Cocaine Screen U Marijuana (THC) Screen Serum Alcohol < 10 01/09/20 01:33 WBC RBC Hgb Hct MCV MCH MCHC RDW Plt Count Lymph % (Auto) [place] % (Auto) Eos % (Auto) Baso % (Auto) Absolute Neuts (auto) Absolute Lymphs (auto) Absolute Monos (auto) Absolute Eos (auto) Absolute Basos (auto) Total Counted Seg Neutrophils % Seg Neuts % (Manual) Band Neutrophils % Lymphocytes % (Manual) Monocytes % (Manual) Eosinophils % (Manual) Basophils % (Manual) Abs Neuts (Manual) Abs Lymphs (Manual) Abs Monocytes (Manual) Absolute Eos (Manual) Abs Basophils (Manual) Platelet Comment RBC Morph Comment Sodium Potassium Chloride Carbon Dioxide Anion Gap BUN Creatinine Est GFR ( Amer) Est GFR (MDRD) Non-Af Glucose Calcium Total Bilirubin Direct Bilirubin Neonat Total Bilirubin Neonat Direct Bilirubin Neonat Indirect Bili AST ALT Alkaline Phosphatase Total Protein Albumin Urine Color Urine Appearance Urine pH Ur Specific [place] Urine Protein Urine Glucose (UA) Urine Ketones Urine Blood Urine Nitrite Urine Bilirubin Urine Urobilinogen Ur Leukocyte Esterase Urine WBC (Auto) Urine RBC (Auto) U Hyaline Cast (Auto) Urine Mucus (Auto) Urine Ascorbic Acid Salicylates Urine Opiates Screen NEGATIVE Urine Methadone Screen NEGATIVE Acetaminophen Ur Barbiturates Screen NEGATIVE Ur Phencyclidine Scrn NEGATIVE Ur Amphetamines Screen NEGATIVE U Benzodiazepines Scrn NEGATIVE Urine Cocaine Screen NEGATIVE U Marijuana (THC) Screen UNCONFIRMED POSITIVE Serum Alcohol (KEYANNA DOTSON) Discharge <KEYANNA DOTSON - Last Filed: 01/09/20 08:10> <DEVORAH ANNE - Last Filed: 01/09/20 11:19> <LAUREN ZUNIGA - Last Filed: 01/09/20 17:39> - Discharge Clinical Impression: Elevated liver function tests, Suicidal ideation Condition: Stable Disposition: HOME, SELF-CARE Additional Instructions: You have been evaluated by both medical and behavioral health teams and have been deemed appropriate for discharge. While in the emergency department you received the following services: Medical screening and assessment, nursing services, dietary services, pharmacological services, one-on-one counseling and/or psychotherapy, environmental services, and continuous observation by a patient product safety professional. Please continue your home seizure medication of Keppra that is also a mood stabilizer. Please take your medications as prescribe and do not stop these medications without discussion with your prescribing physician. Refrain from use of cannabis. Go to appointments and utilize linkages the [facility] Behavioral Health team previously. DEPRESSION: (depression is a symptoms of grief, can present as behavioral in nature especially in those with neurocognitve issues, not to confuse with behavior to get attention such as talking/therapy feeling like being heard, recent seizure activity can cause changes in mood/behaviors as well ) Your evaluation reveals that you have mental depression. While symptoms may be vague, they often include disturbance of sleep, fatigue, loss of appetite, and general loss of interest in life. While depression may be a side effect of drugs, or a reaction to a major change in your life, many cases have no known cause. If depression is acute, and related to a major loss in your life, you can expect it to clear completely with time. If you have been depressed a long time, are prone to repeated bouts of depression or low mood, or have been thinking of suicide, get help. Depression can be treated with anti-depressant medication and counselling. Long-term depression will often take a few weeks to clear, even with appropriate medication. Follow-up care is important. SUICIDAL IDEATION: Suicidal ideation is a common medical term for thoughts about suicide, which may be as detailed as a formulated plan, without the suicidal act itself. Although most people who undergo suicidal ideation do not commit suicide, some go on to make suicide attempts. The range of suicidal ideation varies greatly from fleeting to detailed planning, role playing, and unsuccessful attempts. While thoughts about suicide are common, most people do not carry out serious actions to commit suicide. Based upon your evaluation and discussion with you, we do not believe you are currently at risk to act upon your thoughts of suicide. You have agreed to return to the Emergency Department, at any time, if you feel inclined to act upon your suicidal thoughts. FOLLOW-UP CARE: You are recommended to attend initial therapy appointment with [facility] on 01/11/2020 at 1000, continue with recommendation [facility] of [employer] have provided and try to obtain a sooner neurology appointment than March 2020 if possible. Yout have been provided mobile crisis numbers to utilize for de escalation at home. If you experience worsening or a significant change in your symptoms, notify your physician immediately, return to the Emergency Department at any time for re-evaluation or utilize mobile crisis. Referrals: CHRISTY THAPA MD [Primary Care Provider] - Follow up as needed [facility] Team [Outside] - Follow up as needed [facility] [Outside] - Follow up as needed
[2020-01-09] MEDS ORDERED: CHLORPROMAZINE HCL 50 MG TABLET PO ONE (06:43)
--- NOTE | 2020-01-09 08:41 | EKG REPORT ---
SEVERITY:- BORDERLINE ECG - SINUS RHYTHM ST ELEVATION SUGGESTS PERICARDITIS VS NORMAL VARIANT. : Confirmed by: Marco A Welsh MD 09-Jan-2020 08:41:04
[2020-01-09] MEDS ORDERED: LEVETIRACETAM XR 500 MG TAB.SR.24H PO SCH (10:00)
[2020-01-09 12:25] VITALS: BP 125/67
--- NOTE | 2020-01-09 16:34 | ER Document Report ---
Doctor's Note Notes: 01/09/20 16:32 PHYSICAL EXAMINATION: GENERAL: Appears well, healthy, well-nourished, no acute distress. LUNGS: Equal breath sounds bilaterally and clear to auscultation. No wheezes rales or rhonchi. CARDIOVASCULAR: S1-S2, regular rate, regular rhythm. Radial pulses 2+, normal. ABDOMEN: Normoactive bowel sounds. Soft, nontender, no guarding, no rebound tenderness, and no masses palpated. PSYCH: Depressed mood. I had a very lengthy conversation with the patient in regards to him not following up with his mental health provider. Patient states that he will follow-up. IVC rescinded by Dr. Pitts. Plan is to have the patient discharged and follow-up with outpatient mental health.
--- NOTE | 2020-01-10 04:36 | PSYCHOLOGICAL NOTE ---
Psych Note - Psych Note Date seen by psych provider: 01/09/20 Time seen by psych provider: 12:29 - [id number] Psych Note: Presenting Problem: Patient is a 24 year old male who presented to the [facility] ED via EMS late last evening for behavioral outburst and emotional lability with suicidal ideation. He was subsequently put on a 24 Hour Petition for Evaluation. Medical documentation noted at 1999 parents heard patient crying, he busted a hole in the wall and cried, laid on floor while family consoled him, began having another episode by banging on floor then crying hysterically. Parents called LE and EMS. Note patient was seen yesterday by this clinician and Saturday ( 01/04/2020) while medical admit for similar etiology prior to discharge discussions. Spoke to patient's parents in depth and obtained psychological testing report Dr. 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 It noted chronic SI with attempts at OD which are exacerbated by patient using alcohol and cannabis. Patient was linked to [facility] for support in parents obtaining guardianship and other programs he may qualify through them for, linked to an outpatient therapist recommended in psychological testing report with appointment 01/11/2020 at 1000 and MCM numbers. Patient has neurologist Dr. Whipple with next appointment in March 2020. Patient identified he was at home when he got upset and blew up at home and then here this morning. He stated that is not like him. He talked about the of many family members due to cancer, it seemed someone passed every year and now his cousin/friend. He said "my biggest issue is I don't know how to move forward." He would say he just wants to be with his cousin/friend but never state any plan. He stated he feels like his parents don't understand him and was encouraged to talk with them my starting of with just saying hi, I hope you had a good day, I love you or something positive and work his way up. When asked what he wants from the hospital he said he didn't know, then said he just didn't want to go home and focused on his parents thinking he just wants to smoke weed to get high, how they'd be on his case to get a job/do things around the house and how people started calling him depressed. He stated "I never thought I was then people said it." He talked about posting things on Facebook or social media that are depression or the lyrics to songs he listens to. He was informed that these are places/things that can influence mood so looking at more positive upbeat things to post and listen to. He would then comment on listening to what is familiar. He was encouraged to explore the unfamiliar. He focused on not wanting to go home, just staying in the hospital until he feels better, denied wanting medication. He was made aware he could not stay in the ED that he would have to go to a psychiatric facility where he would be taken by financial intern who handcuffs all for safety, get medication, it is locked, they tell him when he eats and had leisure time. It was explained the therapy he has been set up with that he starts in 2 days is meant to help him with his thoughts/feelings, he can work on himself with therapist and then they could possibly bring parents in to work on relationship/interactions. He was told he has his part which is to take his Keppra as prescribed, abstain from Cannabis, go to neurology appointments and attend/engage in therapy. Patient was alert and oriented to self, person, place, time and situation. Mood was euthymic with congruent affect until he talked about of cousin/friend/, feeling depressed and his behaviors the past couple days which are not like him. He would comment that he has lost so many family and he just wants to be with his cousin/friend that recently passed, he never provided ways he would do anything. Patient did not appear to be responding to internal stimuli as evidenced by fair eye contact and answering questions appropriately when addressed. Conversational speech was within normal limits for rate, tone and prosody. Thought processes were circumferential and concrete. Intellectual abilities are estimated to be below average per psychological testing done by Dr. Elio Moss in October 2019. Insight, judgment and impulse control were fair as evidenced by discussing and processing episodes/thoughts/feelings. Collateral: Spoke to patient's mother from [id number]. Informed her of email sent to her with resources and information regarding TBI and how to deal/interact. Provided psychoeducation on what the Unspecified Major Neurocognitive Disorder with Behavioral Disturbance means. Explained how each seizure he has, especially a long one like the one on 01/02/2020 that got him medically admitted, can alter and effect his thinking/personality/mood. Mother identified they had no idea the impact until the psychological testing results came to them from Dr. Elio Moss, conducted in October, results provided a month later due to the write up of the report taking place and then COVID so no further information or follow through. Mother identified she works with EC children with brain injury at a local High [employer] where she is C[employer] certified so she understands the need for structure, routine, repetition and breaking tasks down. She stated they thought patient was a rebellious teen in High School and it was after 19 to current when he would say he was grown and not follow house rules because of that then take part in harmful things such as smoking weed and staying out past curfew. She stated "when he was a teenager he was good but now he acts like he's a teenager and still stuck in those years." She was informed she has the knowledge and skills based on the population she works with and how different it is when emotionally involved. She understood this. Interventions: Used open ended questioning to obtain information regarding current crisis situation and what he wants from the hospital that (what he feels the hospital can do to help him). Challenged and confronted patient about yesterday's conversation with this clinician when he was medical admit. Reiterated how connections have been made to professional supports in order to help him with his depression and thoughts. Encouraged self efficacy by informing him he has his part to do which is to take his Keppra as prescribed, abstain from Cannabis Use, go to neurology appointments and attend/engage in therapy appointments. Diagnosis: Uncomplicated Bereavement Depression Suicidal Ideation with history Hydroencephalopathy with Original Shunt (unknown date) and Shunt Revision (2006) and noncompliance with Keppra medication Concern for TBI (Diagnosed Unspecified Major Neurocognitive Disorder With Be havioral Disturbance from Oct 2019 psychological testing) due to Shunt placements Cannabis Use Disorder, Severe Impression/Plan: Patient is cleared from acute psychiatric services. Recom mendation to RESCIND 24 Hour Petition for Evaluation. Patient focused on missing his loved ones who have /with a recent , his parents not understanding him and not wanting to go home. He has been linked to therapy which starts 01/11/2020 at 1000 with [facility], support from [facility] in how to move forward with parents obtaining Guardianship, Dr. David completed Affidavit for Guardianship which was provided to father at discharge, educated mother about brain injury and interactions which she understood since she teaches at a local high school EC students with brain injury. Family just learned how patient's hydroencephalopathy, the shunts and continued damage from seizures has caused brain injury when he did the psychological testing with Dr. Elio Moss in October 2019. Recommended they try to get a sooner neurology appointment with Dr. Whipple even though they have tried. Consulted with Dr. David regarding the management and care of patient. ED Physician in agreement with recommendations.
== END 2020-01-09 18:45 | disposition home or self-care (01) ==
LOC: ER 23:39
DX: R45.851 Suicidal ideations (principal); R94.5 Abnormal results of liver function studies; F32.9 Major depressive disorder, single episode, unspecified
CPT/HCPCS: 93005; 99284; 36415; 80307 ×4; 85025; 80053; 81001; 93010; J3490 ×2

== ENCOUNTER 2020-04-14 08:03 | Emergency (ER) | payer OTHER ==
[2020-04-14] MEDS ORDERED: LEVETIRACETAM 1500 MG/NACL-ISO 1,500 MG/100 ML RTUPB IV ONE (08:49)
--- NOTE | 2020-04-14 09:32 | RADIOLOGY REPORT (SQ) ---
EXAM DESCRIPTION: CT HEAD WITHOUT IMAGES COMPLETED DATE/TIME: 04/14/2020 9:12 am REASON FOR STUDY: souza/seizure COMPARISON: Multiple, most recent 01/01/2029 TECHNIQUE: Axial images acquired through the brain without intravenous contrast. Images reviewed wi th bone, brain and subdural windows. Additional sagittal and coronal reconstructions were generated. Images stored on PACS. All CT scanners at this facility use dose modulation, iterative reconstruction, and/or weight based d osing when appropriate to reduce radiation dose to as low as reasonably achievable (ALARA). [facility]: Dose Right [facility]: CareDose [facility]: Dose Right [facility]: Teradose 4D [facility]: [employer] RADIATION DOSE: CT Rad equipment meets quality standard of care and radiation dose reduction techniq ues were employed. CTDIvol: 53.2 mGy. DLP: 937 mGy-cm. mGy. LIMITATIONS: None. FINDINGS: VENTRICLES: Stable position of shunt catheter. No hydrocephalus. CEREBRUM: No masses. No hemorrhage. No midline shift. No evidence for acute infarction. Normal gra y/white matter differentiation. No areas of low density in the white matter. CEREBELLUM: No masses. No hemorrhage. No alteration of density. No evidence for acute infarction. EXTRAAXIAL SPACES: No fluid collections. No masses. ORBITS AND GLOBE: No intra- or extraconal masses. Normal contour of globe without masses. CALVARIUM: No fracture. PARANASAL SINUSES: No fluid or mucosal thickening. SOFT TISSUES: No mass or hematoma. OTHER: No other significant finding. IMPRESSION: No acute findings. EVIDENCE OF ACUTE STROKE: NO. COMMENT: Quality ID # 436: Final reports with documentation of one or more dose reduction techniques (e.g., Automated exposure control, adjustment of the mA and/or kV according to patient size, use of iterative reconstruction technique) TECHNICAL DOCUMENTATION: JOB ID: [id number] 2010 [employer]- All Rights Reserved Reading location - IP/workstation name: [email or web address]
[2020-04-14 09:56] LABS: ABSOLUTE EOSINOPHILS # (AUTO) 0.3 10^3/uL (0.0-0.6); ABSOLUTE LYMPHOCYTES (AUTO) 1.1 10^3/uL (0.5-4.7); ABSOLUTE MONOCYTES (AUTO) 0.3 10^3/uL (0.1-1.4); BASOPHILS % (AUTO) 0.6 % (0-2); EOSINOPHILS % (AUTO) 6.4 % (0-6); LYMPHOCYTES % (AUTO) 23.8 % (13-45); MEAN CORPUSCULAR HEMOGLOBIN 31.1 pg (27.0-33.4); MEAN CORPUSCULAR HGB CONC 33.3 g/dL (32.0-36.0); MEAN CORPUSCULAR VOLUME 93 fl (80-97); MONOCYTES % (AUTO) 7.2 % (3-13); PLATELET COUNT 228 10^3/uL (150-450); RED BLOOD COUNT 4.82 10^6/uL (4.35-5.55); RED CELL DISTRIBUTION WIDTH 12.8 % (11.5-14.0); TOTAL CELLS COUNTED % (AUTO) 100 %; WHITE BLOOD COUNT 4.8 10^3/uL (4.0-10.5)
[2020-04-14 10:25] LABS: ALBUMIN 4.7 g/dL (3.5-5.0); ALKALINE PHOSPHATASE 37 U/L (38-126); ANION GAP 13 (5-19); ASPARTATE AMINO TRANSFERASE 66 U/L (17-59); BILIRUBIN,DIRECT 0.2 mg/dL (0.0-0.4); BILIRUBIN,TOTAL 0.7 mg/dL (0.2-1.3); BLOOD UREA NITROGEN 13 mg/dL (7-20); CALCIUM 9.4 mg/dL (8.4-10.2); CARBON DIOXIDE 27 mmol/L (22-30); CHLORIDE 100 mmol/L (98-107); GLUCOSE 135 mg/dL (75-110); POTASSIUM 4.1 mmol/L (3.6-5.0); TOTAL PROTEIN 8.5 g/dL (6.3-8.2)
[2020-04-14] MEDS ORDERED: ACETAMINOPHEN 325 MG TABLET PO ONE (10:49)
[2020-04-14] MEDS ORDERED: METOPROLOL TARTRATE PF/INJ 5 MG/5 ML SDV IV ONE (11:21)
--- NOTE | 2020-04-14 11:47 | RADIOLOGY REPORT (SQ) ---
EXAM DESCRIPTION: CT ABD/PELVIS NO ORAL OR IV IMAGES COMPLETED DATE/TIME: 04/14/2020 11:37 am REASON FOR STUDY: pain/hx shunt COMPARISON: None. TECHNIQUE: CT scan of the abdomen and pelvis performed without intravenous or oral contrast. Images reviewed with lung, soft tissue, and bone windows. Reconstructed coronal and sagittal MPR images revi ewed. All images stored on PACS. All CT scanners at this facility use dose modulation, iterative reconstruction, and/or weight based d osing when appropriate to reduce radiation dose to as low as reasonably achievable (ALARA). [facility]: Dose Right [facility]: CareDose [facility]: Dose Right [facility]: Teradose 4D [facility]: [employer] RADIATION DOSE: CT Rad equipment meets quality standard of care and radiation dose reduction techniq ues were employed. CTDIvol: 4.8 mGy. DLP: 229 mGy-cm.mGy. LIMITATIONS: None. FINDINGS: LOWER CHEST: No significant findings. No nodules or infiltrates. NON-CONTRASTED LIVER, SPLEEN, ADRENALS: Evaluation limited by lack of IV contrast. No identified sign ificant masses. PANCREAS: No masses. No peripancreatic inflammatory changes. GALLBLADDER: No identified stones by CT criteria. No inflammatory changes to suggest cholecystitis. RIGHT KIDNEY AND URETER: No suspicious masses. Assessment limited by lack of IV contrast. No signif icant calcifications. No hydronephrosis or hydroureter. LEFT KIDNEY AND URETER: No suspicious masses. Assessment limited by lack of IV contrast. No signifi cant calcifications. No hydronephrosis or hydroureter. AORTA AND RETROPERITONEUM: No aneurysm. No retroperitoneal masses or adenopathy. BOWEL AND PERITONEAL CAVITY: No obvious masses or inflammatory changes. No free fluid. APPENDIX: Normal. PELVIS, BLADDER, AND ABDOMINAL WALL:No abnormal masses. No free fluid. Bladder normal. BONES: No significant findings. OTHER: No other significant finding. IMPRESSION: NO SIGNIFICANT OR ACUTE PROCESS IN THE ABDOMEN OR PELVIS. COMMENT: Quality ID # [id number]: Final reports with documentation of one or more dose reduction techniques (e.g., Automated exposure control, adjustment of the mA and/or kV according to patient size, use of iterative reconstruction technique) TECHNICAL DOCUMENTATION: JOB ID: [id number] 2010 [employer]- All Rights Reserved Reading location - IP/workstation name: [email or web address]
--- NOTE | 2020-04-14 12:16 | ER Document Report ---
ED General - General Chief Complaint: Seizure Stated Complaint: WEAKNESS Time Seen by Provider: 04/14/20 08:43 Primary Care Provider: CHRISTY THAPA MD [Primary Care Provider] - Follow up as needed Information source: Patient TRAVEL OUTSIDE OF THE [place] IN LAST 30 DAYS: No - HPI Notes: Patient states he had generalized tonic-clonic seizure today. He states that as far as he knows it was a normal seizure. Nobody who witnessed the seizure accompanies him to the emergency department to help with history. Patient states he has a headache. It feels like the usual headaches he gets after a seizure. It is constant and throbbing. Moderate in intensity. It is mainly frontal but does radiate throughout his head. He also states he is having some abdominal pain that is diffuse. No vomiting or diarrhea. No recent trauma. No recent cough cold or congestion. He states that his medications for seizures were recently changed but he does not know what the new medicines are or other dosages. He states he does know that he used to be on Keppra but is not on this anymore. - Related Data Allergies/Adverse Reactions: No Known Allergies Allergy (Verified 02/03/17 22:50) Home Medications: lamotrigine Past Medical History - General Information source: Patient - Social History Smoking Status: Current Every Day Smoker Frequency of alcohol use: None Drug Abuse: None Family History: Reviewed & Not Pertinent Neurological Medical History: Reports: Hx Seizures - History of hydrocephalus Renal/ Medical History: Denies: Hx Peritoneal Dialysis Psychiatric Medical History: Reports: Hx Anxiety, Hx Depression Past Surgical History: Reports: Hx Genitourinary Surgery - Abcess behind bladder 2006, Hx Neurologic Surgery - BR[employer]GE [employer]ON[employer]ER shunt, revised in 2006 - Immunizations Immunizations up to date: Yes Hx Diphtheria, Pertussis, Tetanus Vaccination: Yes Review of Systems - Review of Systems Constitutional: denies: Chills, Fever Cardiovascular: denies: Chest pain, Palpitations Respiratory: denies: Cough, Hemoptysis, Short of breath -: Yes All other systems reviewed and negative Physical Exam - Vital signs Vitals: Temp 98 F 04/14/20 08:04 Interpretation: Normal - General General appearance: Appears well, Alert - HEENT Head: Normocephalic, Atraumatic Eyes: Normal Pupils: PERRL - Respiratory Respiratory status: No respiratory distress Chest status: Nontender Breath sounds: Normal Chest palpation: Normal - Cardiovascular Rhythm: Regular Heart sounds: Normal auscultation Murmur: No - Abdominal Inspection: Normal Distension: No distension Bowel sounds: Normal Tenderness: Nontender Organomegaly: No organomegaly - Back Back: Normal, Nontender - Extremities General upper extremity: Normal inspection, Nontender, Normal color, Normal ROM, Normal temperature General lower extremity: Normal inspection, Nontender, Normal color, Normal ROM, Normal temperature, Normal weight bearing. No: Leigh's sign - Neurological Neuro grossly intact: Yes Cognition: Normal Orientation: AAOx4 Kelli Coma Scale Eye Opening: Spontaneous Kelli Coma Scale Verbal: Oriented [place] Coma Scale Motor: Obeys Commands Kelli Coma Scale Total: 15 Speech: Normal Motor strength normal: LUE, RUE, LLE, RLE Sensory: Normal - Psychological Associated symptoms: Normal affect, Normal mood - Skin Skin Temperature: Warm Skin Moisture: Dry Skin Color: Normal Course - Re-evaluation Re-evalutation: 04/14/20 12:12 Patient comes in after having an apparent tonic-clonic seizure at home. I did load the patient with Keppra here. Patient now tells me that he has been taken off of Keppra and switch to another medication but he feels he needs to be back on Keppra. He states he has enough of his other seizure medications at home. He states he will go home and call his neurologist today to arrange for an appointment as well as discuss his medications. Patient appears to be back to her normal state of health with stable vital signs unremarkable laboratories as well as unremarkable imaging. Patient appears stable for discharge at this time. - Vital Signs Vital signs: Temp Pulse Resp BP Pulse Ox 98 F 18 140/89 H 98 04/14/20 08:04 04/14/20 11:29 04/14/20 11:29 04/14/20 11:29 - Laboratory Result Diagrams: 04/14/20 08:15 04/14/20 08:15 Laboratory results interpreted by me: 04/14/20 04/14/20 08:15 08:15 Eos % (Auto) 6.4 H Glucose 135 H AST 66 H Alkaline Phosphatase 37 L Total Protein 8.5 H - Diagnostic Test Radiology reviewed: Image reviewed, Reports reviewed - EKG Interpretation by Me EKG shows normal: Sinus rhythm Rate: Normal - 72 Rhythm: NSR [place]/QRS: No: Right axis deviation, Left axis deviation Discharge - Discharge Clinical Impression: Seizure Condition: Stable Disposition: HOME, SELF-CARE Instructions: Seizure, Known Epileptic ([facility]) Additional Instructions: Please call your neurologist as soon as possible to arrange for reevaluation as well as to discuss your seizure medications. Referrals: CHRISTY THAPA MD [Primary Care Provider] - Follow up tomorrow
[2020-04-14] MEDS ORDERED: IBUPROFEN 600 MG TABLET PO ONE (12:44)
[2020-04-14 12:46] VITALS: BP 131/90
--- NOTE | 2020-04-14 15:17 | EKG REPORT ---
SEVERITY:- NORMAL ECG - SINUS RHYTHM : Confirmed by: Jose Celis MD 14-Apr-2020 15:16:48
== END 2020-04-14 12:54 | disposition home or self-care (01) ==
LOC: ER 08:03
DX: R56.9 Unspecified convulsions (principal); R53.1 Weakness; R10.9 Unspecified abdominal pain; Z79.899 Other long term (current) drug therapy
CPT/HCPCS: 93005; 99285; 96375; 96365; 36415; 85025; 80053; 70450; 74176; 93010; J3490; J1953

== ENCOUNTER 2020-07-28 08:54 | Emergency (ER) | payer OTHER ==
[2020-07-28 09:46] LABS: ABSOLUTE EOSINOPHILS # (AUTO) 0.2 10^3/uL (0.0-0.6); ABSOLUTE MONOCYTES (AUTO) 0.6 10^3/uL (0.1-1.4); ABSOLUTE NEUT (AUTO) 6.8 10^3/uL (1.7-8.2); BASOPHILS % (AUTO) 0.2 % (0-2); EOSINOPHILS % (AUTO) 1.8 % (0-6); HEMATOCRIT 42.5 % (37.9-51.0); LYMPHOCYTES % (AUTO) 11.3 % (13-45); MEAN CORPUSCULAR HEMOGLOBIN 30.9 pg (27.0-33.4); MEAN CORPUSCULAR VOLUME 94 fl (80-97); MONOCYTES % (AUTO) 6.5 % (3-13); PLATELET COUNT 223 10^3/uL (150-450); RED BLOOD COUNT 4.54 10^6/uL (4.35-5.55); SEGMENTED NEUTROPHILS % (AUTO) 80.2 % (42-78); TOTAL CELLS COUNTED % (AUTO) 100 %; WHITE BLOOD COUNT 8.5 10^3/uL (4.0-10.5)
[2020-07-28 10:07] LABS: ALBUMIN 4.3 g/dL (3.5-5.0); ALKALINE PHOSPHATASE 50 U/L (38-126); ANION GAP 12 (5-19); ASPARTATE AMINO TRANSFERASE 29 U/L (17-59); BILIRUBIN,DIRECT 0.1 mg/dL (0.0-0.4); BILIRUBIN,TOTAL 0.3 mg/dL (0.2-1.3); BLOOD UREA NITROGEN 13 mg/dL (7-20); CALCIUM 9.6 mg/dL (8.4-10.2); CARBON DIOXIDE 24 mmol/L (22-30); CHLORIDE 108 mmol/L (98-107); GLUCOSE 119 mg/dL (75-110); POTASSIUM 4.4 mmol/L (3.6-5.0); TOTAL PROTEIN 7.4 g/dL (6.3-8.2)
[2020-07-28 10:08] LABS: ALCOHOL < 10 mg/dL (NONE DETECTED)
[2020-07-28] MEDS ORDERED: DEXTROSE 5%-LACTATED RINGERS 1,000 ML IV ONE (10:16)
[2020-07-28] MEDS ORDERED: KETOROLAC TROMETHAMINE INJ/PF 30 MG/1 ML SDV IV ONE (10:37)
[2020-07-28] MEDS ORDERED: ACETAMINOPHEN 325 MG TABLET PO ONE (10:37)
--- NOTE | 2020-07-28 10:37 | ER Document Report ---
Entered by GINNA FELIPE SCRIBE 07/28/20 1007 Acting as scribe for:RITO JUNIOR MD ED Seizure - General Chief Complaint: Seizure Stated Complaint: POSSIBLE SEIZURE Time Seen by Provider: 07/28/20 10:04 Mode of Arrival: Medic Information source: Patient, Emergency Med Personnel Notes: This 24 year old male patient with a known history of seizure disorder and hy drocephalus with [employer] INST[employer]ER shunt (last revised in 2006) presents to the ED today via EMS for evaluation following a seizure that occurred prior to arrival. Per nursing, patient was postictal upon EMS arrival and no medications were given. Patient takes Lamictal 100 mg BID and Keppra 1000 mg in the morning and 1500 mg at night. Patient states that he has not missed a dose and that he was sleeping when he started to have the seizure. He does report a headache, but states that this is typical after having a seizure. Review of records shows when the patient was admitted on 01/02/2020 with prolonged seizures, he was ultimately found to have a Keppra level that was slightly above the upper limit of the therapeutic range, however this was drawn about 30 minutes after he received 1000 mg loading dose of Keppra. However this means that he was probably well in the therapeutic range while he was having his seizures. - Related Data Allergies/Adverse Reactions: No Known Allergies Allergy (Verified 02/03/17 22:50) Past Medical History - General Information source: [facility] Records - Social History Smoking Status: Unknown if Ever Smoked Smoking Education Provided: No Lives with: Parents Family History: Reviewed & Not Pertinent Neurological Medical History: Reports: Hx Seizures - Hx of Hydrocephalus Psychiatric Medical History: Reports: Hx Anxiety, Hx Depression Past Surgical History: Reports: Hx Genitourinary Surgery - Abscess behind bladder 2006, Hx COMM[employer] C[employer]ING INST[employer]ER Shunt - revised in 2006 - Immunizations Immunizations up to date: Yes Hx Diphtheria, Pertussis, Tetanus Vaccination: Yes Review of Systems - Review of Systems Constitutional: No symptoms reported EENT: No symptoms reported Cardiovascular: No symptoms reported Respiratory: No symptoms reported Gastrointestinal: No symptoms reported Genitourinary: No symptoms reported Male Genitourinary: No symptoms reported Musculoskeletal: No symptoms reported Skin: No symptoms reported Hematologic/Lymphatic: No symptoms reported Neurological/Psychological: See HPI, Seizure, Headaches -: Yes All other systems reviewed and negative Physical Exam - Vital signs Vitals: Resp Pulse Ox 17 100 07/28/20 09:01 07/28/20 09:01 - General General appearance: Other - Patient is drowsy, but arousable and subsequently alert and oriented In distress: None - HEENT Head: Normocephalic, Atraumatic Eyes: Normal Pupils: PERRL - Respiratory Respiratory status: No respiratory distress Chest status: Nontender Breath sounds: Normal Chest palpation: Normal - Cardiovascular Rhythm: Regular Heart sounds: Normal auscultation Murmur: No Friction rub: No Gallop: None auscultated - Abdominal Inspection: Normal Distension: No distension Bowel sounds: Normal Tenderness: Nontender Organomegaly: No organomegaly - Back Back: Normal, Nontender - Extremities General upper extremity: Normal inspection General lower extremity: Normal inspection. No: Edema - Neurological Neuro grossly intact: Yes Orientation: AAOx4 - Psychological Associated symptoms: Normal affect, Normal mood - Skin Skin Temperature: Warm Skin Moisture: Dry Skin Color: Normal Course - Re-evaluation Re-evalutation: 07/28/20 13:57 Patient's father arrived and informed me that the patient been complaining of a toothache. On exam he was found to have a decayed broken right lower third molar. All of the third molars are in place and the upper ones have not really grown in yet. There did seem to be some tenderness to percuss over the left lower third molar but there was no sign of decay. In discussing other causes for breakthrough seizures, the father reports that his son does not get much sleep and has trouble sleeping at night. I did advise the father that the patient should see the oral surgeons because third molars are very difficult to properly care for and difficult to keep them healthy. I also advised him to follow-up with the patient's neurologist next week to check on the Keppra level. It is a send out and will not be available until probably the middle of the week next week. - Vital Signs Vital signs: Temp Pulse Resp BP Pulse Ox 97.9 F 84 17 135/99 H 98 07/28/20 09:07 07/28/20 09:07 07/28/20 10:01 07/28/20 10:00 07/28/20 10:01 - Laboratory Result Diagrams: 07/28/20 09:26 07/28/20 09:26 Laboratory results interpreted by me: 07/28/20 07/28/20 07/28/20 09:26 09:26 10:26 Lymph % (Auto) 11.3 L Seg Neutrophils % 80.2 H Chloride 108 H Glucose 119 H Urine Protein 100 H - Diagnostic Test Radiology reviewed: Reports reviewed - CT scan does not show any change compared to previous scans, specifically the ventricles are not dilated suggesting a shunt problem. Discharge - Discharge Clinical Impression: Seizure, Dental decay Condition: Stable Disposition: HOME, SELF-CARE Additional Instructions: Seizure, Known Epileptic: You have had a seizure. Seizures may "break through" in an epileptic due to stress of infection or injury, a change in blood chemistry, or drug and alcohol use. Another common cause is failure to take medication as prescribed. Your doctor has evaluated your situation for the likely cause of this seizure. It is important that you follow his advice concerning any medication changes and follow-up care. Further testing of anti-seizure medication levels in your blood may be necessary. 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 This seizure must be reported to the tow motor driver's license bureau. Call the doctor or return if seizures recur, or if new or unusual symptoms arise -- such as severe headache, confusion, excessive sleepiness, local weakness or numbness, neck stiffness, or fever. Toothache: Your pain is due to dental decay. The tooth must be repaired in order for you to feel better. You will, therefore, be referred to a dentist. Severe swelling or drainage around a tooth usually means a deep dental abscess. This also requires evaluation and treatment by the dentist, but antibiotics may be prescribed while awaiting dental treatment. You should be rechecked immediately if you develop major swelling of the face, increasing pain, a lump in the jaw or gums, headache, or fever. Take the medication as prescribed for your toothache. Take Tylenol and ibuprofen for pain as needed. Be sure you do not miss any of your seizure medication doses. Follow-up with a dentist to examine your teeth and make recommendations about need for extraction of the third molars. Follow-up with your neurologist next week to discuss your breakthrough seizures, and to check on the Keppra level. RETURN TO THE EMERGENCY ROOM IF ANY NEW OR WORSENING SYMPTOMS. Prescriptions: Penicillin V Potassium [Penicillin Vk 500 mg Tablet] 500 mg PO QID #28 tablet I personally performed the services described in the documentation, reviewed and edited the documentation which was dictated to the scribe in my presence, and it accurately records my words and actions.
[2020-07-28 10:57] LABS: APPEARANCE,URINE CLEAR; BILIRUBIN,URINE NEGATIVE (NEGATIVE); COLOR,URINE YELLOW; GLUCOSE, URINE NEGATIVE (NEGATIVE); KETONES,URINE NEGATIVE (NEGATIVE); LEUKOCYTE ESTERASE,URINE NEGATIVE (NEGATIVE); NITRITE,URINE NEGATIVE (NEGATIVE); PROTEIN,URINE 100 mg/dL (NEGATIVE); URINE SPECIFIC GRAVITY 1.023; UROBILINOGEN,URINE NEGATIVE mg/dL (<2.0)
[2020-07-28 11:09] LABS: URINE AMPHETAMINES SCREEN NEGATIVE; URINE BARBITURATES SCREEN NEGATIVE; URINE BENZODIAZEPINES SCREEN NEGATIVE; URINE COCAINE SCREEN NEGATIVE; URINE MARIJUANA (THC) SCREEN NEGATIVE; URINE METHADONE SCREEN NEGATIVE; URINE PHENCYCLIDINE SCREEN NEGATIVE
--- NOTE | 2020-07-28 11:19 | RADIOLOGY REPORT (SQ) ---
EXAM DESCRIPTION: CT HEAD WITHOUT IMAGES COMPLETED DATE/TIME: 07/28/2020 10:50 am REASON FOR STUDY: seizure, has shunt COMPARISON: CT brain 04/14/2020, 01/02/2020 TECHNIQUE: Axial images acquired through the brain without intravenous contrast. Images reviewed wi th bone, brain and subdural windows. Additional sagittal and coronal reconstructions were generated. Images stored on PACS. All CT scanners at this facility use dose modulation, iterative reconstruction, and/or weight based d osing when appropriate to reduce radiation dose to as low as reasonably achievable (ALARA). [facility]: Dose Right [facility]: CareDose [facility]: Dose Right [facility]: Teradose 4D [facility]: [employer] RADIATION DOSE: CT Rad equipment meets quality standard of care and radiation dose reduction techniq ues were employed. CTDIvol: 53.2 mGy. DLP: 991 mGy-cm. mGy. LIMITATIONS: None. FINDINGS: VENTRICLES: Right frontal intraventricular drainage catheter, with tip in the anterior 3rd ventricle is unchanged from prior studies. CEREBRUM: And no CT evidence of acute large territory change, acute intracranial hemorrhage, mass eff ect, or midline shift. 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 No areas of low density in the white matter. CEREBELLUM: No masses. No hemorrhage. No alteration of density. No evidence for acute infarction. EXTRAAXIAL SPACES: No fluid collections. No masses. ORBITS AND GLOBE: No intra- or extraconal masses. Normal contour of globe without masses. CALVARIUM: No fracture. PARANASAL SINUSES: No fluid or mucosal thickening. SOFT TISSUES: No mass or hematoma. OTHER: No other significant finding. IMPRESSION: No change from prior. No hydrocephalus. No acute intracranial hemorrhage or acute isch emic change. Right frontal intraventricular drainage catheter unchanged. 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 EVIDENCE OF ACUTE STROKE: NO. COMMENT: Quality ID # [id number]: Final reports with documentation of one or more dose reduction techniques (e.g., Automated exposure control, adjustment of the mA and/or kV according to patient size, use of iterative reconstruction technique) TECHNICAL DOCUMENTATION: JOB ID: [id number] 2010 [employer]- All Rights Reserved Reading location - IP/workstation name: [email or web address]
[2020-07-28] MEDS ORDERED: PENICILLIN V POTASSIUM 500 MG TABLET PO ONE (14:02)
[2020-07-28 14:37] VITALS: BP 131/82
== END 2020-07-28 14:37 | disposition home or self-care (01) ==
LOC: ER 08:54
DX: K02.9 Dental caries, unspecified (principal); G40.909 Epilepsy, unspecified, not intractable, without status epilepticus; Z98.2 Presence of cerebrospinal fluid drainage device
CPT/HCPCS: 99285; 96361; 96374; 36415; 80177; 80307 ×2; 83735; 85025; 80053; 81001; 70450; J1885; J7121